=== PATIENT | female | born 1950 | race Caucasian/White ===

== ENCOUNTER 2016-06-22 17:52 | Inpatient (IN) | payer MEDICARE, MEDICAID ==
[~2016-06-22] VITALS: Ht 162.6 cm; Wt 76.2 kg
[~2016-06-22 17:52] MED LIST: AC325T PO; ACYC30OI TOP; ACYC400T21 PO; ALBU0.8322 IH; ALBU17AE3 IH; ALBU8.5H2 IH; ALBU8.5H2 INH; ALBUTEROL 2.5 MG IH; ALPR1T PO; ALPR1TAB7 PO; ALPR1TAB72 PO; AMLO10TA82 PO; AZIT500T2 PO; Azithromycin PO; BENZ100C18 PO; CALC10009 PO; CEFD300C PO; CETI10CA PO; CODE118S2 PO; CPH250CIP PO; DIPH25TA82 PO; FLC150T PO; FLUT1DIS26 IH; HYDR-3720 PO; HYDR-3816 PO; HYDR118S10 PO; HYDR12.56 PO; IBUP-30 PO; LOSA100T7 PO; LOSA1TAB23 PO; LOSA25TA5 PO; LRT10T PO; NYST1000 PO; OXYC-12 PO; POTA10TA36 PO; POTASSIUM GLUCONATE PO; PRD10T PO; PRD20T PO; PRED10TA PO; PROP40TA5 PO; RANI300T4 PO; RT-COMBINH IH; SERT50TA9 PO; TELM80TA3 PO; TIOT18CA IH; TIOT18CA2 IH; ZLP10T PO
[2016-06-22] MEDS ORDERED: DEXAMETHASONE 4 MG/ML SDV (DECADRON) IH ONE (18:30)
[2016-06-22] MEDS ORDERED: methylPREDNISolone 125 MG (Solu-MEDROL) VIAL IVP ONE (18:30)
[2016-06-22] MEDS ORDERED: RT-ALBUTEROL/IPRATROPIUM 3 ML (DUONEB) VIAL INH ONE ×2 (18:30→20:00)
[2016-06-22 18:43] LABS: BASOPHILS % (AUTO) 0 % (0-10); EOSINOPHILS % (AUTO) 0 % (0-10); LYMPHOCYTES % (AUTO) 18 % (12-44); MEAN CORPUSCULAR HEMOGLOBIN 27 PG (25-34); MEAN CORPUSCULAR HGB CONC 32 G/DL (32-36); MEAN CORPUSCULAR VOLUME 85 FL (80-99); MEAN PLATELET VOLUME 10.3 FL (7.4-10.4); MONOCYTES # (AUTO) 0.5 X 10^3 (0.0-1.0); MONOCYTES % (AUTO) 9 % (0-12); NEUTROPHILS # (AUTO) 4.1 X 10^3 (1.8-7.8); NEUTROPHILS % (AUTO) 73 % (42-75); PLATELET COUNT 184 10^3/uL (130-400); RED BLOOD COUNT 4.39 10^6/uL (4.35-5.85); RED CELL DISTRIBUTION WIDTH 13.9 % (10.0-14.5); WHITE BLOOD COUNT 5.5 10^3/uL (4.3-11.0)
[2016-06-22 19:01] LABS: INR 0.9 (0.8-1.4); PROTHROMBIN TIME PATIENT 12.1 SEC (12.2-14.7)
[2016-06-22 19:09] LABS: ALBUMIN 3.8 G/DL (3.2-4.5); BILIRUBIN,TOTAL 0.3 MG/DL (0.1-1.0); CALCIUM 8.1 MG/DL (8.5-10.1); CREATININE SERUM 1.48 MG/DL (0.60-1.30); TOTAL PROTEIN 6.6 G/DL (6.4-8.2)
[2016-06-22 19:10] LABS: ABG BASE EXCESS 5.8 MMOL/L (-2.5-2.5); ABG HCO3 33 MMOL/L (23-27); ABG OXYGEN SATURATION 94 % (94-100); ABG PCO2 62 MMHG (35-45); ABG PH 7.35 (7.37-7.43); ABG PO2 72 MMHG (79-93); ABG TCO2 34.3 MMOL/L (21.0-31.0)
[2016-06-22 19:10] LABS: POTASSIUM 2.5 MMOL/L (3.6-5.0)
[2016-06-22 19:11] LABS: PATIENT TEMP 101.2
--- NOTE | 2016-06-22 19:27 | Diagnostic Imaging Report ---
INDICATION: Cough, shortness of air. COMPARISON: 08/07/2014. FINDINGS: Flattening of the diaphragms and mild symmetrical air trapping are unchanged findings. Some mild prominence of the interstitial markings in the lung bases is a stable and chronic finding. No acute infiltrate, failure, effusion, or pneumothorax. IMPRESSION: Stable chronic finding. Dictated by: Dictated on workstation # [id number]
[2016-06-22] MEDS ORDERED: cefTRIAXone INJECTION 1,000 MG in NORMAL SALINE (BAXTER MINI) 50 ML IV ONE (20:15)
[2016-06-22] MEDS ORDERED: NORMAL SALINE (BAXTER MINI) 50 ML IV ONE (20:26)
[2016-06-22] MEDS ORDERED: cefTRIAXone 1 GM (ROCEPHIN) VIAL ONE (20:26)
[2016-06-22] MEDS ORDERED: KCL 10 MEQ TAB (MICRO K) PO ONE ×2 (20:29→20:45)
[2016-06-22] MEDS ORDERED: KCL 20 MEQ TAB (K-DUR) PO ONE (20:30)
[2016-06-22 20:57] LABS: ABG BASE EXCESS 3.9 MMOL/L (-2.5-2.5); ABG HCO3 31 MMOL/L (23-27); ABG OXYGEN SATURATION 95 % (94-100); ABG PCO2 60 MMHG (35-45); ABG PO2 76 MMHG (79-93); ABG TCO2 32.9 MMOL/L (21.0-31.0)
[2016-06-22 21:00] LABS: ABG PH 7.33 (7.37-7.43)
[2016-06-22 22:08] VITALS: BP 127/94
[2016-06-22 22:15] VITALS: BP 117/54
[2016-06-22] MEDS ORDERED: ASPI-9 PO (22:19)
[2016-06-22] MEDS ORDERED: DIPH25CA79 PO (22:20)
[2016-06-22] MEDS ORDERED: AZITHROMYCIN 500 MG/NS 250 ML IVPB (1 X DOSE) IV NR ×2 (22:24)
[2016-06-22 22:30] VITALS: BP 109/55
[2016-06-22] MEDS ORDERED: ACYCLOVIR 400 MG TABLET (ZOVIRAX) PO PRN (22:30)
[2016-06-22] MEDS ORDERED: RT-ALBUTEROL SULF 2.5 MG/3 ML PRE-MIX VIAL IH PRN (22:30)
[2016-06-22 22:45] VITALS: BP 110/53
[2016-06-22 23:00] VITALS: BP 105/56
[2016-06-22 23:30] VITALS: BP 109/57
[2016-06-22] MEDS ORDERED: RT-ALBUTEROL/IPRATROPIUM 3 ML (DUONEB) VIAL INH PRN (23:45)
[2016-06-23] VITALS (19 sets, daily range): BP systolic 78–127; BP diastolic 29–81
[2016-06-23] MEDS ORDERED: ALPRAZolam 1 MG (XANAX) TAB PO SCH (00:45)
[2016-06-23] MEDS ORDERED: HYDROcodone/APAP 7.5 MG/325 MG (LORTAB, LORCET PLUS) TABLET PO ONE (00:45)
[2016-06-23] MEDS: methylPREDNISolone 125 MG (Solu-MEDROL) VIAL IVP SCH ×4 (00:53→19:06)
[2016-06-23 04:25] LABS: BASOPHILS % (AUTO) 0 % (0-10); EOSINOPHILS % (AUTO) 0 % (0-10); LYMPHOCYTES # (AUTO) 0.3 X 10^3 (1.0-4.0); LYMPHOCYTES % (AUTO) 7 % (12-44); MEAN CORPUSCULAR HEMOGLOBIN 27 PG (25-34); MEAN CORPUSCULAR HGB CONC 32 G/DL (32-36); MEAN CORPUSCULAR VOLUME 85 FL (80-99); MEAN PLATELET VOLUME 10.9 FL (7.4-10.4); MONOCYTES % (AUTO) 1 % (0-12); NEUTROPHILS # (AUTO) 3.4 X 10^3 (1.8-7.8); NEUTROPHILS % (AUTO) 92 % (42-75); PLATELET COUNT 183 10^3/uL (130-400); RED BLOOD COUNT 4.22 10^6/uL (4.35-5.85); RED CELL DISTRIBUTION WIDTH 13.8 % (10.0-14.5); WHITE BLOOD COUNT 3.6 10^3/uL (4.3-11.0)
--- NOTE | 2016-06-23 04:34 | ED Respiratory ---
General Chief Complaint: Respiratory Problems Stated Complaint: COPD EXACERBATION WITH HYPOXIA Nursing Triage Note: ARRIVED VIA AMBULANCE FROM [facility] WITH SOA. RECIEVED Enoch DENNIS AT [facility]. STATES SHE HAS BEEN COUGHING AND SOA FOR SEVERAL DAYS. PT STATES SHE WEARS OXYGEN ON A DAILY BASIS AT 2-4L NC. PT ARRIVED AT 2L NC WITH A PULSE OX OF 78%. Source: patient History of Present Illness Time seen by provider: 18:25 Initial Comments PT ARRIVES VIA EMS FROM [facility] PT C/O SHORTNESS OF BREATH AND NON PRODUCTIVE COUGH FOR 4 DAYS PT HAS COPD AND WEARS O2 AT 3-4 L/NC CONTINUOUSLY O2 SATS WERE IN 70'S AT [facility], AND WAS 79% ON 2L/NC ON ARRIVAL TO ER PT HAS TEMP OF 101 ON ARRIVAL HERE, WITH PULSE IN 120'S NO CHEST PAIN NO SWELLING IN LEGS/FEET OR PAIN IN CALVES Allergies and Home Medications Allergies Coded Allergies: levofloxacin (Verified Allergy, Severe, SEVERE SWELLING OF KNEES, 08/07/14) ibuprofen (Verified Allergy, Unknown, 06/22/16) zolpidem (Verified Allergy, Unknown, 06/22/16) Uncoded Allergies: HONEY BEES (Allergy, Severe, ANAPHYLAXIS, 08/07/14) Home Medications Acyclovir 400 Mg Tablet 400 MG PO TID PRN PRN COLD SORES (Reported) Albuterol Sulfate 2.5 Mg/3 Ml Solution 2.5 MG IH QID PRN PRN SHORTNESS OF BREATH (Reported) Albuterol Sulfate 8.5 Gm Aer.w.adap 2 PUFF INH Q6H PRN PRN SHORTNESS OF BREATH ( Reported) Alprazolam 1 Mg Tablet 1 MG PO BID (Reported) Aspirin/Calcium Carbonate/Mag 325 Mg Tablet 325 MG PO DAILY (Reported) Diphenhydramine HCl 25 Mg Capsule 50 MG PO DAILY (Reported) Fluticasone/Salmeterol 1 Disk Inhp 1 PUFF IH BID (Reported) LAST FILLED 08-20-14 Hydrocodone Bit/Acetaminophen 1 Tab Tablet 1 TAB PO TID (Reported) Potassium Chloride 10 Meq Tab.prt.sr 30Days 20 MEQ PO DAILY Prescribed by: SHAHLA LOPEZ on 11/26/14 1423 Ranitidine Hcl 300 Mg Tablet 300 MG PO HS (Reported) Tiotropium Fults 1 Inh Aerp 1 INH IH DAILY (Reported) Constitutional: see HPI Respiratory: see HPI cough short of breath Cardiovascular: no symptoms reported Gastrointestinal: no symptoms reported Musculoskeletal: no symptoms reported Skin: no symptoms reported Psychiatric/Neurological: No Symptoms Reported Hematologic/Lymphatic: No Symptoms Reported Immunological/Allergic: no symptoms reported Past Wvpydrb-Efeqof-Tpqyym Hx Patient Social History Alcohol Use: Denies Use Recreational Drug Use: No Smoking Status: Never a Smoker Recent Foreign Travel: No Contact w/Someone Who Travel: No Recent Infectious Disease Expo: No Recent Hopitalizations: No Physical Abuse Screen: No Sexual Abuse: No Immunizations Up To Date Tetanus Booster (TDap): More than 5yrs PED Vaccines UTD: No Date of Pneumonia Vaccine: Mar 25, 2011 Date of Influenza Vaccine: Apr 03, 2016 Seasonal Allergies Seasonal Allergies: Yes Surgeries HX Surgeries: Yes (SHOULDER, KNEE SURGERIES, CATARACT) Respiratory Hx Respiratory Disorders: Yes Respiratory Disorders: Pneumonia, COPD Cardiovascular Hx Cardiac Disorders: Yes Neurological Hx Neurological Disorders: No Reproductive System : No Hx Reproductive Disorders: No Sexually Transmitted Disease: No HIV/AIDS: No Female Reproductive Disorders: Denies Genitourinary Hx Genitourinary Disorders: Yes Genitourinary Disorders: UTI-Chronic Gastrointestinal Hx Gastrointestinal Disorders: Yes Gastrointestinal Disorders: Gastroesophageal Reflux Musculoskeletal Hx Musculoskeletal Disorders: No Musculoskeletal Disorders: Arthritis Endocrine Hx Endocrine Disorders: No HEENT HX ENT Disorders: Yes (stoke effecting rt eye ) HEENT Disorders: Cataract Loss of Vision: Right Hearing Impairment: Denies Cancer Hx Cancer: Yes ( hysterectomy, ) Cancer: Cervical Psychosocial Hx Psychiatric Problems: Yes Behavioral Health Disorders: Anxiety, Depression Integumentary HX Skin/Integumentary Disorder: No Blood Transfusions Hx Blood Disorders: No Adverse Reaction to a Blood Tr: No Family Medical History Family Medial History: Arthritis 19 FATHER Asthma DAUGHTER Cancer 19 MOTHER G8 SISTER Cardiovascular disease 19 FATHER Colon cancer 19 MOTHER Coronary thrombosis DAUGHTER Diabetes mellitus DAUGHTER Drug abuse DAUGHTER Headache disorder DAUGHTER Hypercholesterolemia DAUGHTER Hypertension DAUGHTER Myocardial infarction 19 MOTHER Psychosocial problem DAUGHTER Respiratory disorder DAUGHTER Stroke Tuberculosis No Family History of: AIDS Abdominal aortic aneurysm [place]'s disease Alcoholism Alzheimer's disease Aphasia Cancer of mouth Cataracts Completed stroke Congenital disease Congenital heart disease Congenital heart disease Cystic fibrosis Deafness or hearing loss Dementia Dysphasia Fibrocystic disease of breast Gastroenteritis Glaucoma Infertility Kidney disease Neoplasm Not obtainable due to adoption Osteoporosis Parkinson's disease Prostate cancer Seizure disorder Severe allergy Thyroid disease Visual disorder Physical Exam Vital Signs Vital Sign - Last 12Hours 06/22/16 06/22/16 06/22/16 17:52 19:07 19:55 Temp 101.2 Pulse 121 Resp 20 B/P 105/67 Pulse Ox 100 O2 Delivery Nasal Cannula O2 Flow Rate 5 FiO2 100 Capillary Refill : Less Than 3 Seconds General Appearance: moderate distress HEENT: PERRL/EOMI Neck: normal inspection Respiratory: respiratory distress decreased breath sounds accessory muscle use rales (DIFFUSE BILATERAL) rhonchi Cardiovascular: regular rate, rhythm Gastrointestinal: non tender soft Extremities: normal inspection no pedal edema 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 no motor/sensory deficits normal mood/affect oriented x 3 Skin: normal color warm/dry Progress/Results/Core Measures Results/Orders Lab Results Laboratory Tests Test 06/22/16 18:27 06/22/16 18:30 Range/Units Lv Test NA Arterial Blood Base Excess 5.8 H -2.5-2.5 MMOL/L Arterial Blood HCO3 33 H 23-27 MMOL/L Arterial Blood Oxygen Saturation 94 94-100 % Arterial Blood Partial Pressure CO2 62 H 35-45 MMHG Arterial Blood Partial Pressure O2 72 L 79-93 MMHG Arterial Blood Total CO2 34.3 H 21.0-31.0 MMOL/L Arterial Blood pH 7.35 L 7.37-7.43 Blood Gas Inspired Oxygen 5L Blood Gas Patient Temperature 101.2 Blood Gas Puncture Site RT BRACH Blood Gas Ventilator Setting NO Activated Partial Thromboplast Time 34 24-35 SEC Alanine Aminotransferase (ALT/SGPT) 23 0-55 U/L Albumin 3.8 3.2-4.5 G/DL Alkaline Phosphatase 99 40-136 U/L Anion Gap 12 5-14 MMOL/L Aspartate Amino Transf (AST/SGOT) 26 5-34 U/L B-Type Natriuretic Peptide < 10.0 <100.0 PG/ML BUN/Creatinine Ratio 7 Basophils # (Auto) 0.0 0.0-0.1 10^3/uL Basophils (%) (Auto) 0 0-10 % Blood Urea Nitrogen 11 7-18 MG/DL Calcium Level 8.1 L 8.5-10.1 MG/DL Carbon Dioxide Level 31 21-32 MMOL/L Chloride Level 91 L 98-107 MMOL/L Creatinine 1.48 H 0.60-1.30 MG/DL Eosinophils # (Auto) 0.0 0.0-0.3 10^3/uL Eosinophils (%) (Auto) 0 0-10 % Estimat Glomerular Filtration Rate 35 Glucose Level 122 H 70-105 MG/DL Hematocrit 37 35-52 % Hemoglobin 11.8 11.5-16.0 G/DL INR Comment 0.9 0.8-1.4 Lactic Acid Level 1.6 0.5-2.0 MMOL/L Lymphocytes # (Auto) 1.0 1.0-4.0 X 10^3 Lymphocytes (%) (Auto) 18 12-44 % Mean Corpuscular Hemoglobin 27 25-34 PG Mean Corpuscular Hemoglobin Concent 32 32-36 G/DL Mean Corpuscular Volume 85 80-99 FL Mean Platelet Volume 10.3 7.4-10.4 FL Monocytes # (Auto) 0.5 0.0-1.0 X 10^3 Monocytes (%) (Auto) 9 0-12 % Neutrophils # (Auto) 4.1 1.8-7.8 X 10^3 Neutrophils (%) (Auto) 73 42-75 % Platelet Count 184 130-400 10^3/uL Potassium Level 2.5 *L 3.6-5.0 MMOL/L Prothrombin Time 12.1 L 12.2-14.7 SEC Red Blood Count 4.39 4.35-5.85 10^6/uL Red Cell Distribution Width 13.9 10.0-14.5 % Sodium Level 134 L 135-145 MMOL/L Total Bilirubin 0.3 0.1-1.0 MG/DL Total Protein 6.6 6.4-8.2 G/DL White Blood Count 5.5 4.3-11.0 10^3/uL Micro Results Microbiology 06/22/16 Influenza Types A,B Antigen (ADRIAN) - Final, Complete My Orders Orders-MEGGAN CASTRO DO Saline Lock/Iv-Start (06/22/16 18:27) Ekg Tracing (06/22/16 18:27) O2 (06/22/16 18:27) Monitor-Rhythm Ecg Trace Only (06/22/16 18:27) Arterial Blood Gas (06/22/16 18:27) BNP (06/22/16 18:27) Cbc With Automated Diff (06/22/16 18:27) Comprehensive Metabolic Panel (06/22/16 18:27) Lactic Acid Analyzer (06/22/16 18:27) Protime With Inr (06/22/16 18:27) Partial Thromboplastin Time (06/22/16 18:27) Blood Culture (06/22/16 18:27) Influenza A And B Antigens (06/22/16 18:27) Chest 1 View, Ap/Pa Only (06/22/16 18:27) Albuterol/Ipra Inhalation Soln (Duoneb I (06/22/16 18:30) Dexamethasone Injection (Decadron Inject (06/22/16 18:30) Rt Request For Service (06/22/16 18:27) Methylprednisolone Sod Succ (Solu-Medrol (06/22/16 18:30) Albuterol/Ipra Inhalation Soln (Duoneb I (06/22/16 20:00) Medications Given in ED Current Medications Medications Dose Ordered Sig/Yannick Route Start Time Stop Time Status Last Admin Dose Admin Albuterol/ Ipratropium 3 ml ONCE ONCE INH 06/22/16 18:30 06/22/16 23:42 DC 06/22/16 19:07 3 ML Dexamethasone Sodium Phosphate 20 mg ONCE ONCE IH 06/22/16 18:30 06/22/16 18:31 DC 06/22/16 19:07 20 MG Methylprednisolone Sodium Succinate 125 mg ONCE ONCE IVP 06/22/16 18:30 06/22/16 18:31 DC 06/22/16 18:48 125 MG Vital Signs/I&O Vital Sign - Last 12Hours 06/22/16 06/22/16 06/22/16 06/22/16 17:52 17:52 19:07 19:55 Temp 101.2 Pulse 121 Resp 20 B/P 105/67 Pulse Ox 100 95 O2 Delivery Nasal Cannula Nasal Cannula Vapotherm O2 Flow Rate 5 5 14 FiO2 100 Blood Pressure Mean: 80 Progress Note : Progress Note O2 SATS IN 90'S ON HIG FLOW OXYGEN PT NO LONGER DYSPNEIC LUNG SOUNDS IMPROVED AFTER NEB TREATMENTS ECG Initial ECG Impression Time: 19:46 Initial ECG Rate: 1-0 Initial ECG Rhythm: S.Tach Initial ECG Impression: Nonspecific Changes Diagnostic Imaging Comments CXR--NO ACUTE PROCESS, PER RADIOLOGIST REPORT @ Reviewed: Reviewed by Me Departure Communication Progress Notes 1953--SPOKE WITH DR. GRANT, ACCEPTS PT FOR ADMIT. Impression Impression: Primary Impression: COPD EXACERBATION WITH HYPOXIA Additional Impression: Chronic respiratory failure Disposition: ADMITTED INPATIENT Condition: Improved Decision to Admit Reason: Admit from ER (General) Decision to Admit/Date: Jun 22, 2016 Time/Decision to Admit Time: 19:55 Departure-Patient Inst. Referrals: ANDREA CHU MD (PCP) Primary Care Physician MEGGAN CASTRO DO Jun 23, 2016 04:34
[2016-06-23 05:01] LABS: ALBUMIN 3.8 G/DL (3.2-4.5); BILIRUBIN,TOTAL 0.2 MG/DL (0.1-1.0); CREATININE SERUM 1.26 MG/DL (0.60-1.30); MAGNESIUM 2.6 MG/DL (1.8-2.4); PHOSPHORUS 3.3 MG/DL (2.3-4.7); POTASSIUM 4.3 MMOL/L (3.6-5.0); TOTAL PROTEIN 7.1 G/DL (6.4-8.2)
[2016-06-23] MEDS ORDERED: MAGNESIUM 1 GM/100 ML IVPB 100 ML IV SCH (06:00)
[2016-06-23] MEDS ORDERED: KCL 20 MEQ TAB (K-DUR) PO SCH (06:00)
[2016-06-23] MEDS ORDERED: POTASSIUM CL 10MEQ/50ML IVPB 50 ML IV SCH (06:00)
[2016-06-23] MEDS: RT-ALBUTEROL/IPRATROPIUM 3 ML (DUONEB) VIAL INH SCH ×4 (06:52→20:21)
[2016-06-23] MEDS: RT-ADVAIR HFA 115/21 MCG PER PUFF IH SCH ×2 (06:52→20:21)
--- NOTE | 2016-06-23 06:56 | Diagnostic Imaging Report ---
INDICATION: COPD exacerbation. Hypoxia. COMPARISON: 06/22/2016 FINDINGS: Single frontal radiographic view of the chest was obtained and demonstrates normal cardiac silhouette and pulmonary vasculature. Lungs are clear and show no focal consolidation, large effusion, nor pneumothorax. Bony structures show no gross acute abnormalities. IMPRESSION: 1. Stable exam of the chest showing no acute cardiopulmonary process. Dictated by: Dictated on workstation # [id number]
[2016-06-23] MEDS: TIOTROPIUM BROMIDE (SPIRIVA) 5'S INHALER IH SCH (07:07)
[2016-06-23] MEDS: KCL 20 MEQ TAB (K-DUR) PO SCH (08:21)
[2016-06-23] MEDS: diphenhydrAMINE 25 MG TAB (BENADRYL) PO SCH (08:21)
[2016-06-23] MEDS: HYDROcodone/APAP 7.5 MG/325 MG (LORTAB, LORCET PLUS) TABLET PO SCH ×3 (08:22→20:05)
[2016-06-23] MEDS: ASPIRIN E.C. 325 MG (ECOTRIN) TABLET PO SCH (08:22)
[2016-06-23] MEDS: AZITHROMYCIN 250 MG TAB (ZITHROMAX) PO SCH (08:22)
[2016-06-23] MEDS: ALPRAZolam 1 MG (XANAX) TAB PO SCH ×2 (08:22→20:05)
[2016-06-23] MEDS ORDERED: SALMETEROL IH SCH (09:00)
[2016-06-23] MEDS ORDERED: FLUTICASONE IH SCH (09:00)
[2016-06-23] MEDS ORDERED: [UNRECOGNIZED DRUG - OTHER] IH SCH (09:00)
[2016-06-23] MEDS ORDERED: POTASSIUM CHLORIDE 20 MEQ PO SCH (09:00)
[2016-06-23] MEDS ORDERED: NON-FORMULARY MEDICATION 1 EA EA (Diphenhydramine HCl (Benadryl) 50 MG) PO SCH (09:00)
[2016-06-23] MEDS ORDERED: RT-ALBUINH IH (09:49)
[2016-06-23] MEDS ORDERED: FLUT1DIS26 IH (09:49)
[2016-06-23] MEDS ORDERED: ALPR1TAB7 PO (09:49)
[2016-06-23] MEDS ORDERED: HYDR-3816 PO (09:49)
[2016-06-23] MEDS ORDERED: LOSA1TAB70 PO (09:49)
[2016-06-23] MEDS ORDERED: SERT50TA9 PO (09:49)
[2016-06-23] MEDS ORDERED: ASPI-808 PO (09:49)
[2016-06-23] MEDS ORDERED: RANI300T4 PO (09:49)
[2016-06-23] MEDS ORDERED: POTA10TA10 PO (09:52)
[2016-06-23] MEDS ORDERED: ACYC200C PO (09:57)
--- NOTE | 2016-06-23 11:44 | History & Physicial (CHS) ---
HPI History of Present Illness: 66YO WOMAN presented to [facility] with her family after they noticed she appeared hshort of breath. In clinic, patient had O2 sat of 78% on her usual 2.5L flow of oxygen. Today, patient states that she "feels the same as usual" and that she did not notice she was gettign sick. Denies fever, cough, fatigue. Patient states she does not like going to the doctor and so avoids it. Source: patient Exam Limitations: no limitations Date seen by provider: Jun 23, 2016 Attending Physician Lila Hammer MD PCP Andrea Chu MD Consult Date of Admission Jun 22, 2016 at 19:55 Home Medications Home Medications Reviewed patient Home Medication Reconciliation Form Allergies Coded Allergies: levofloxacin (Verified Allergy, Severe, SEVERE SWELLING OF KNEES, 08/07/14) ibuprofen (Verified Allergy, Unknown, 06/22/16) zolpidem (Verified Allergy, Unknown, 06/22/16) Uncoded Allergies: HONEY BEES (Allergy, Severe, ANAPHYLAXIS, 08/07/14) YJR-Vkegke-Mvblez Hx Patient Social History Alcohol Use: Denies Use Recreational Drug Use: No Smoking Status: Never a Smoker Recent Foreign Travel: No Contact w/other who traveled: No Recent Hopitalizations: No Recent Infectious Disease Expo: No Physical Abuse Screen: No Sexual Abuse: No Immunizations Up To Date Tetanus Booster (TDap): More than 5yrs Date of Pneumonia Vaccine: Mar 25, 2011 Date of Influenza Vaccine: Apr 03, 2016 Past Medical History Past medical history 1. COPD 2. Pulmonary embolus in the distant past related to OCP 3. Hypertension 4. Chronic anxiety and depression 5. Multiple admissions with pneumonia H-Flu -15, Strep Pneumonia 12- Past surgical history 1. Hysterectomy 2. Open right shoulder surgery 3. Appendectomy -Kido 4. Knee arthroscopy Family Medical History Family History: Arthritis 19 FATHER Asthma DAUGHTER Cancer 19 MOTHER G8 SISTER Cardiovascular disease 19 FATHER Colon cancer 19 MOTHER Coronary thrombosis DAUGHTER Diabetes mellitus DAUGHTER Drug abuse DAUGHTER Headache disorder DAUGHTER Hypercholesterolemia DAUGHTER Hypertension DAUGHTER Myocardial infarction 19 MOTHER Psychosocial problem DAUGHTER Respiratory disorder DAUGHTER Stroke Tuberculosis No Family History of: AIDS Abdominal aortic aneurysm [place]'s disease Alcoholism Alzheimer's disease Aphasia Cancer of mouth Cataracts Completed stroke Congenital disease Congenital heart disease Congenital heart disease Cystic fibrosis Deafness or hearing loss Dementia Dysphasia Fibrocystic disease of breast Gastroenteritis Glaucoma Infertility Kidney disease Neoplasm Not obtainable due to adoption Osteoporosis Parkinson's disease Prostate cancer Seizure disorder Severe allergy Thyroid disease Visual disorder Review of Systems (CHC) Constitutional: no symptoms reported All Other Systems Reviewed Negative Unless Noted: Yes (Negative excepted noted.) Reviewed Test Results Reviewed Test Results Lab Laboratory Tests Test 06/22/16 18:27 06/22/16 18:30 06/22/16 20:53 06/23/16 03:43 Range/Units Lv Test NA NA Arterial Blood Base Excess 5.8 H 3.9 H -2.5-2.5 MMOL/L Arterial Blood HCO3 33 H 31 H 23-27 MMOL/L Arterial Blood Oxygen Saturation 94 95 94-100 % Arterial Blood Partial Pressure CO2 62 H 60 H 35-45 MMHG Arterial Blood Partial Pressure O2 72 L 76 L 79-93 MMHG Arterial Blood Total CO2 34.3 H 32.9 H 21.0-31.0 MMOL/L Arterial Blood pH 7.35 L 7.33 *L 7.37-7.43 Blood Gas Inspired Oxygen 5L 14 L Blood Gas Patient Temperature 101.2 99.0 Blood Gas Puncture Site RT BRACH LT BRACH Blood Gas Ventilator Setting NO NO Activated Partial Thromboplast Time 34 24-35 SEC Alanine Aminotransferase (ALT/SGPT) 23 24 0-55 U/L Albumin 3.8 3.8 3.2-4.5 G/DL Alkaline Phosphatase 99 105 40-136 U/L Anion Gap 12 18 H 5-14 MMOL/L Aspartate Amino Transf (AST/SGOT) 26 33 5-34 U/L B-Type Natriuretic Peptide < 10.0 <100.0 PG/ML BUN/Creatinine Ratio 7 10 Basophils # (Auto) 0.0 0.0 0.0-0.1 10^3/uL Basophils (%) (Auto) 0 0 0-10 % Blood Urea Nitrogen 11 13 7-18 MG/DL Calcium Level 8.1 L 8.0 L 8.5-10.1 MG/DL Carbon Dioxide Level 31 20 L 21-32 MMOL/L Chloride Level 91 L 94 L 98-107 MMOL/L Creatinine 1.48 H 1.26 0.60-1.30 MG/DL Eosinophils # (Auto) 0.0 0.0 0.0-0.3 10^3/uL Eosinophils (%) (Auto) 0 0 0-10 % Estimat Glomerular Filtration Rate 35 43 Glucose Level 122 H 211 H 70-105 MG/DL Hematocrit 37 36 35-52 % Hemoglobin 11.8 11.4 L 11.5-16.0 G/DL INR Comment 0.9 0.8-1.4 Lactic Acid Level 1.6 0.5-2.0 MMOL/L Lymphocytes # (Auto) 1.0 0.3 L 1.0-4.0 X 10^3 Lymphocytes (%) (Auto) 18 7 L 12-44 % Mean Corpuscular Hemoglobin 27 27 25-34 PG Mean Corpuscular Hemoglobin Concent 32 32 32-36 G/DL Mean Corpuscular Volume 85 85 80-99 FL Mean Platelet Volume 10.3 10.9 H 7.4-10.4 FL Monocytes # (Auto) 0.5 0.0 0.0-1.0 X 10^3 Monocytes (%) (Auto) 9 1 0-12 % Neutrophils # (Auto) 4.1 3.4 1.8-7.8 X 10^3 Neutrophils (%) (Auto) 73 92 H 42-75 % Platelet Count 184 183 130-400 10^3/uL Potassium Level 2.5 *L 4.3 3.6-5.0 MMOL/L Prothrombin Time 12.1 L 12.2-14.7 SEC Red Blood Count 4.39 4.22 L 4.35-5.85 10^6/uL Red Cell Distribution Width 13.9 13.8 10.0-14.5 % Sodium Level 134 L 132 L 135-145 MMOL/L Total Bilirubin 0.3 0.2 0.1-1.0 MG/DL Total Protein 6.6 7.1 6.4-8.2 G/DL White Blood Count 5.5 3.6 L 4.3-11.0 10^3/uL Magnesium Level 2.6 H 1.8-2.4 MG/DL Phosphorus Level 3.3 2.3-4.7 MG/DL Test 06/23/16 14:31 Range/Units Lv Test YES-POS Arterial Blood Base Excess 3.0 H -2.5-2.5 MMOL/L Arterial Blood HCO3 29 H 23-27 MMOL/L Arterial Blood Oxygen Saturation 97 94-100 % Arterial Blood Partial Pressure CO2 45 35-45 MMHG Arterial Blood Partial Pressure O2 87 79-93 MMHG Arterial Blood Total CO2 30.1 21.0-31.0 MMOL/L Arterial Blood pH 7.41 7.37-7.43 Blood Gas Inspired Oxygen 70% Blood Gas Patient Temperature 95.7 Blood Gas Puncture Site RT RAD Blood Gas Ventilator Setting NO Physical Exam-(CHC) Physical Exam Vital Signs VS - Last 72 Hours, by Label 06/22/16 06/22/16 06/22/16 06/22/16 17:52 17:52 19:07 19:55 Temp 101.2 Pulse 121 Resp 20 B/P 105/67 Pulse Ox 100 95 O2 Delivery Nasal Cannula Nasal Cannula Vapotherm O2 Flow Rate 5 5 14 FiO2 100 06/22/16 06/22/16 06/22/16 06/22/16 20:29 22:03 22:08 22:15 Temp 100.0 98.4 Pulse 121 119 109 Resp 20 36 17 B/P 127/94 117/54 Pulse Ox 95 98 91 94 O2 Delivery High Flow NC High Flow N/C High Flow NC High Flow NC O2 Flow Rate 14 14.00 100.00 100.00 14.00 14.00 FiO2 100 06/22/16 06/22/16 06/22/16 06/22/16 22:22 22:30 22:45 23:00 Pulse 105 105 100 99 Resp 28 27 27 B/P 109/55 110/53 105/56 Pulse Ox 97 100 98 O2 Delivery High Flow NC High Flow NC High Flow NC O2 Flow Rate 100.00 100.00 100.00 14.00 14.00 14.00 06/22/16 06/22/16 06/23/16 06/23/16 23:30 23:35 00:00 00:00 Temp 98.1 Pulse 102 111 Resp 30 30 B/P 109/57 79/29 Pulse Ox 98 94 98 96 O2 Delivery High Flow NC High Flow NC O2 Flow Rate 100.00 14.00 100.00 14.00 14.00 FiO2 100 06/23/16 06/23/16 06/23/16 06/23/16 00:14 00:15 00:30 01:00 Pulse 99 101 95 Resp 23 26 27 B/P 112/68 112/61 127/81 Pulse Ox 98 98 99 98 O2 Delivery High Flow N/C High Flow NC High Flow NC High Flow NC O2 Flow Rate 14.00 100.00 100.00 100.00 14.00 14.00 14.00 FiO2 100 06/23/16 06/23/16 06/23/16 06/23/16 01:00 02:00 02:34 03:00 Pulse 96 92 90 Resp 26 24 B/P 122/62 121/64 Pulse Ox 97 96 98 O2 Delivery High Flow NC High Flow N/C High Flow NC O2 Flow Rate 100.00 14.00 100.00 14.00 14.00 06/23/16 06/23/16 06/23/16 06/23/16 04:00 04:00 05:00 06:00 Pulse 92 89 84 Resp 25 B/P 121/62 100/55 103/54 Pulse Ox 98 98 98 100 O2 Delivery High Flow NC High Flow NC High Flow NC O2 Flow Rate 100.00 14.00 100.00 100.00 14.00 14.00 14.00 FiO2 100 06/23/16 06/23/16 06/23/16 06/23/16 06:53 07:00 07:00 08:00 Pulse 86 89 B/P 96/52 Pulse Ox 100 100 98 O2 Delivery High Flow N/C High Flow NC O2 Flow Rate 14.00 100.00 14.00 14.00 FiO2 80 80 06/23/16 06/23/16 06/23/16 06/23/16 08:00 08:00 09:00 10:00 Temp 96.6 Pulse 87 83 96 B/P 112/62 95/54 78/59 Pulse Ox 92 98 92 O2 Delivery High Flow NC High Flow NC High Flow NC O2 Flow Rate 100.00 100.00 100.00 14.00 14.00 14.00 06/23/16 06/23/16 06/23/16 06/23/16 10:59 11:00 11:33 11:33 Temp 97.1 Pulse 84 B/P 113/51 Pulse Ox 96 98 O2 Delivery High Flow N/C High Flow NC O2 Flow Rate 14.00 100.00 14.00 14.00 FiO2 75 80 06/23/06/23/16 16 06/23/16 12:00 13:00 13:00 14:00 Pulse 90 80 81 B/P 100/53 111/63 Pulse Ox 96 98 O2 Delivery High Flow NC High Flow NC High Flow NC O2 Flow Rate 100.00 100.00 100.00 14.00 14.00 14.00 06/23/16 06/23/16 06/23/16 06/23/16 15:00 15:11 15:12 15:16 B/P Pulse Ox 98 93 O2 Delivery High Flow NC High Flow N/C High Flow N/C O2 Flow Rate 100.00 7.00 14.00 9.00 14.00 FiO2 60 80 63 06/23/16 06/23/16 06/23/16 06/23/16 16:00 16:07 16:45 19:55 Temp 96.2 97.8 98.2 Pulse 99 107 90 Resp 30 24 23 B/P 114/58 123/56 97/58 Pulse Ox 94 92 96 O2 Delivery High Flow NC High Flow NC High Flow NC O2 Flow Rate 100.00 100.00 100.00 14.00 14.00 14.00 06/23/16 06/23/16 20:21 20:26 Pulse Ox 91 O2 Delivery High Flow N/C High Flow N/C O2 Flow Rate 9.00 9.00 FiO2 63 63 Capillary Refill : Less Than 3 Seconds General Appearance: WD/WN no apparent distress HEENT: PERRL/EOMI normal ENT inspection pharynx normal Neck: non-tender full range of motion supple normal inspection Respiratory: lungs clear decreased breath sounds accessory muscle use other ( short of breath when speaking) Cardiovascular: regular rate, rhythm no edema no gallop no JVD no murmur Gastrointestinal: normal bowel sounds non tender soft no organomegaly Extremities: normal range of motion non-tender normal inspection no pedal edema normal capillary refill 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 she does appear quite ill and has end stage lung disease. she is on appropriate therapies at home though it appears doses need to be adjusted given her degree of lung disease. I will keep her on azithromycin and rocephin for pneumonia protocol though she does not technically have a CAP. She might also do well with doxy but was allergic to FQ. Her ABG today is much improved so we will keep her on the HiFLow Cannula and wean down as possible. Explained to patient that she will need to be in hospital for a few days, she was quite ready to leave already this morning. HTN ADM - listed in clinic chart as PMH. BP here are somewhat low, so holding meds for now. DVT PROPH: SCDs Diagnosis/Problems: Clinical Quality Measures DVT/VTE Risk/Contraindication: Risk Factor Score Per Nursin RFS Level Per Nursing on Admit: 4+=Very High Copy Copies To 1: ANDREA CHU MD, JULIE A MD Jun 23, 2016 11:44 am
[2016-06-23 14:40] LABS: ABG HCO3 29 MMOL/L (23-27); ABG OXYGEN SATURATION 97 % (94-100); ABG PCO2 45 MMHG (35-45); ABG PH 7.41 (7.37-7.43); ABG PO2 87 MMHG (79-93); ABG TCO2 30.1 MMOL/L (21.0-31.0)
[2016-06-23 14:47] LABS: ALLENS TEST YES-POS; PATIENT TEMP 95.7
[2016-06-23] MEDS ORDERED: NORMAL SALINE (BAXTER MINI) 50 ML IV ONE (19:56)
[2016-06-23] MEDS ORDERED: cefTRIAXone 1 GM (ROCEPHIN) VIAL ONE (19:56)
[2016-06-23] MEDS: cefTRIAXone 1 GM/NS 50 ML IVPB IV SCH ×2 (20:04)
[2016-06-23] MEDS: FAMOTIDINE 20 MG (PEPCID) TABLET PO SCH (20:04)
[2016-06-24] VITALS (7 sets, daily range): BP systolic 104–136; BP diastolic 61–80
[2016-06-24] MEDS: methylPREDNISolone 125 MG (Solu-MEDROL) VIAL IVP SCH ×2 (00:34→06:14)
[2016-06-24 06:04] LABS: BASOPHILS % (AUTO) 0 % (0-10); EOSINOPHILS % (AUTO) 0 % (0-10); LYMPHOCYTES # (AUTO) 0.5 X 10^3 (1.0-4.0); LYMPHOCYTES % (AUTO) 7 % (12-44); MEAN CORPUSCULAR HEMOGLOBIN 27 PG (25-34); MEAN CORPUSCULAR HGB CONC 32 G/DL (32-36); MEAN CORPUSCULAR VOLUME 84 FL (80-99); MEAN PLATELET VOLUME 10.5 FL (7.4-10.4); MONOCYTES # (AUTO) 0.3 X 10^3 (0.0-1.0); MONOCYTES % (AUTO) 3 % (0-12); NEUTROPHILS # (AUTO) 6.9 X 10^3 (1.8-7.8); NEUTROPHILS % (AUTO) 90 % (42-75); PLATELET COUNT 205 10^3/uL (130-400); RED BLOOD COUNT 4.17 10^6/uL (4.35-5.85); RED CELL DISTRIBUTION WIDTH 13.7 % (10.0-14.5); WHITE BLOOD COUNT 7.7 10^3/uL (4.3-11.0)
[2016-06-24] MEDS: KCL 20 MEQ TAB (K-DUR) PO SCH (06:14)
[2016-06-24 06:27] LABS: CALCIUM 8.6 MG/DL (8.5-10.1); CREATININE SERUM 0.97 MG/DL (0.60-1.30); POTASSIUM 3.2 MMOL/L (3.6-5.0)
[2016-06-24] MEDS: RT-ALBUTEROL/IPRATROPIUM 3 ML (DUONEB) VIAL INH SCH ×4 (07:16→19:26)
[2016-06-24] MEDS: RT-ADVAIR HFA 115/21 MCG PER PUFF IH SCH ×2 (07:16→19:26)
[2016-06-24] MEDS ORDERED: cefTRIAXone 1 GM (ROCEPHIN) VIAL ONE ×2 (08:12→19:48)
[2016-06-24] MEDS ORDERED: NORMAL SALINE (BAXTER MINI) 50 ML IV ONE ×2 (08:13→19:48)
[2016-06-24] MEDS: ALPRAZolam 1 MG (XANAX) TAB PO SCH ×2 (08:21→20:03)
[2016-06-24] MEDS: ASPIRIN E.C. 325 MG (ECOTRIN) TABLET PO SCH (08:21)
[2016-06-24] MEDS: AZITHROMYCIN 250 MG TAB (ZITHROMAX) PO SCH (08:21)
[2016-06-24] MEDS: diphenhydrAMINE 25 MG TAB (BENADRYL) PO SCH (08:21)
[2016-06-24] MEDS: HYDROcodone/APAP 7.5 MG/325 MG (LORTAB, LORCET PLUS) TABLET PO SCH ×3 (08:21→20:02)
[2016-06-24] MEDS: SERTRALINE 50 MG (ZOLOFT) TABLET PO SCH (08:21)
[2016-06-24] MEDS: cefTRIAXone INJECTION 1,000 MG in NORMAL SALINE (BAXTER MINI) 50 ML IV SCH (08:22)
[2016-06-24] MEDS: TIOTROPIUM BROMIDE (SPIRIVA) 5'S INHALER IH SCH (09:00)
[2016-06-24] MEDS ORDERED: KCL 20 MEQ TAB (K-DUR) PO NR (09:45)
--- NOTE | 2016-06-24 09:48 | Diagnostic Imaging Report ---
EXAMINATION: Chest radiograph, portable AP view. DATE: June 24, 2016, at 0509 hours. INDICATION: 66-year-old female, hypoxia. COMPARISON: June 23, 2016. FINDINGS: Stable overall appearance of the cardiomediastinal silhouette. There is no identified pneumothorax. There is no large pleural effusion. There is no identified focal airspace consolidation. IMPRESSION: No identified acute cardiopulmonary abnormality. Dictated by: Dictated on workstation # [id number]
--- NOTE | 2016-06-24 11:48 | Progress Note (SOAP) ---
Subjective Subjective/Events-last exam Pt reports feeling better and wanting to go home. She is still maintained on 9L HF at 63% FIO2. Reports she was coughing all night. Afebrile. Date seen by provider: Jun 24, 2016 Time seen by provider: 09:05 Objective Exam Last Set of Vital Signs Vital Signs Date Time Temp Pulse Resp B/P Pulse Ox O2 Delivery O2 Flow Rate FiO2 06/24/16 10:37 91 High Flow N/C 9.00 63 06/24/16 08:00 98.2 100 24 113/61 Capillary Refill : Less Than 3 Seconds I&O Intake and Output 06/24/16 00:00 Intake Total 1350 ml Output Total 350 ml Balance 1000 ml Intake Oral 1100 ml IV Total 250 ml Output Urine Total 350 ml # Voids 5 # Bowel Movements 2 General: Alert, Oriented X3, Cooperative, No Acute Distress Lungs: Other (wheezing and crackles throughout; decreased air excursion) Heart: Regular Rate Psych/Mental Status: Mood NL Results/Procedures Lab Laboratory Tests 06/23/16 14:31: Lv Test YES-POS, Arterial Blood Base Excess 3.0H, Arterial Blood HCO3 29H, Arterial Blood Oxygen Saturation 97, Arterial Blood Partial Pressure CO2 45, Arterial Blood Partial Pressure O2 87, Arterial Blood Total CO2 30.1, Arterial Blood pH 7.41, Blood Gas Inspired Oxygen 70%, Blood Gas Patient Temperature 95.7 , Blood Gas Puncture Site RT RAD, Blood Gas Ventilator Setting NO 06/24/16 05:51: Anion Gap 13, BUN/Creatinine Ratio 16, Basophils # (Auto) 0.0, Basophils (%) ( Auto) 0, Blood Urea Nitrogen 16, Calcium Level 8.6, Carbon Dioxide Level 26, Chloride Level 95L, Creatinine 0.97, Eosinophils # (Auto) 0.0, Eosinophils (%) ( Auto) 0, Estimat Glomerular Filtration Rate 58, Glucose Level 217H, Hematocrit 35, Hemoglobin 11.2L, Lymphocytes # (Auto) 0.5L, Lymphocytes (%) (Auto) 7L, Mean Corpuscular Hemoglobin 27, Mean Corpuscular Hemoglobin Concent 32, Mean Corpuscular Volume 84, Mean Platelet Volume 10.5H, Monocytes # (Auto) 0.3, Monocytes (%) (Auto) 3, Neutrophils # (Auto) 6.9, Neutrophils (%) (Auto) 90H, Platelet Count 205, Potassium Level 3.2L, Red Blood Count 4.17L, Red Cell Distribution Width 13.7, Sodium Level 134L, White Blood Count 7.7 Microbiology 06/22/16 Blood Culture - Preliminary, Resulted No growth 06/22/16 Influenza Types A,B Antigen (ADRIAN) - Final, Complete Assessment/Plan Assessment/Plan Plan ACUTE BACTERIAL EXACERBATION OF CHRONIC BRONCHITIS RESULTANT RESPIRATORY FAILURE WITH HYPOXIA ADM - we will keep patient on aggressive seroid dose for another 24h before weaning. she does appear quite ill and has end stage lung disease. she is on appropriate therapies at home though it appears doses need to be adjusted given her degree of lung disease. I will keep her on azithromycin and rocephin for pneumonia protocol though she does not technically have a CAP. She might also do well with doxy but was allergic to FQ. Her ABG today is much improved so we will keep her on the HiFLow Cannula and wean down as possible. Explained to patient that she will need to be in hospital for a few days, she was quite ready to leave already this morning. 06/24 - pt reports feeling improved though still maintained on 9L HF 63% FIO2 w / sat in the low 90's. Will decrease Solu-medrol to 40mg IV q6; add Mucinex HTN ADM - listed in clinic chart as PMH. BP here are somewhat low, so holding meds for now. DVT PROPH: SCDs Diagnosis/Problems: Clinical Quality Measures DVT/VTE Risk/Contraindication: Risk Factor Score Per Nursin RFS Level Per Nursing on Admit: 4+=Very High MILAGROS TERRY DO Jun 24, 2016 11:48
[2016-06-24] MEDS: methylPREDNISolone 40 MG/ML (Solu-MEDROL) VIAL IV SCH ×2 (13:52→18:12)
[2016-06-24] MEDS: guaiFENesin (MUCINEX) 600 MG TAB PO SCH ×2 (13:52→20:02)
[2016-06-24] MEDS: cefTRIAXone 1 GM/NS 50 ML IVPB IV SCH ×2 (20:02)
[2016-06-24] MEDS: FAMOTIDINE 20 MG (PEPCID) TABLET PO SCH (20:03)
[2016-06-25] MEDS: methylPREDNISolone 40 MG/ML (Solu-MEDROL) VIAL IV SCH ×2 (01:05→06:39)
[2016-06-25 03:21] VITALS: BP 140/68
[2016-06-25 05:10] LABS: BASOPHILS % (AUTO) 0 % (0-10); EOSINOPHILS % (AUTO) 0 % (0-10); LYMPHOCYTES # (AUTO) 0.6 X 10^3 (1.0-4.0); LYMPHOCYTES % (AUTO) 6 % (12-44); MEAN CORPUSCULAR HEMOGLOBIN 27 PG (25-34); MEAN CORPUSCULAR HGB CONC 32 G/DL (32-36); MEAN CORPUSCULAR VOLUME 85 FL (80-99); MEAN PLATELET VOLUME 10.3 FL (7.4-10.4); MONOCYTES # (AUTO) 0.4 X 10^3 (0.0-1.0); MONOCYTES % (AUTO) 4 % (0-12); NEUTROPHILS # (AUTO) 9.4 X 10^3 (1.8-7.8); NEUTROPHILS % (AUTO) 91 % (42-75); PLATELET COUNT 217 10^3/uL (130-400); RED BLOOD COUNT 4.03 10^6/uL (4.35-5.85); WHITE BLOOD COUNT 10.3 10^3/uL (4.3-11.0)
[2016-06-25 05:29] LABS: CALCIUM 8.4 MG/DL (8.5-10.1); CREATININE SERUM 0.97 MG/DL (0.60-1.30); MAGNESIUM 2.1 MG/DL (1.8-2.4); POTASSIUM 3.7 MMOL/L (3.6-5.0)
[2016-06-25] MEDS: KCL 20 MEQ TAB (K-DUR) PO SCH (06:39)
[2016-06-25] MEDS: RT-ALBUTEROL/IPRATROPIUM 3 ML (DUONEB) VIAL INH SCH ×4 (07:34→19:44)
--- NOTE | 2016-06-25 07:42 | Diagnostic Imaging Report ---
EXAMINATION: Chest radiograph, portable AP view. DATE: June 25, 2016 at 0455 hours. INDICATION: 66-year-old female, hypoxia. COPD exacerbation. COMPARISON: June 24, 2016. FINDINGS: Stable overall appearance of the cardiomediastinal silhouette. There is no identified pneumothorax. There is no large pleural effusion. There is no identified interval focal airspace consolidation. Pulmonary vascular markings. IMPRESSION: 1. No identified interval acute cardiopulmonary abnormality. Dictated by: Dictated on workstation # [id number]
[2016-06-25 08:00] VITALS: BP 138/64
[2016-06-25] MEDS: RT-ADVAIR HFA 115/21 MCG PER PUFF IH SCH ×2 (08:12→19:44)
[2016-06-25] MEDS ORDERED: NORMAL SALINE (BAXTER MINI) 50 ML IV ONE ×2 (08:14→21:04)
[2016-06-25] MEDS ORDERED: cefTRIAXone 1 GM (ROCEPHIN) VIAL ONE ×2 (08:14→21:04)
[2016-06-25] MEDS: AZITHROMYCIN 250 MG TAB (ZITHROMAX) PO SCH (08:25)
[2016-06-25] MEDS: diphenhydrAMINE 25 MG TAB (BENADRYL) PO SCH (08:25)
[2016-06-25] MEDS: HYDROcodone/APAP 7.5 MG/325 MG (LORTAB, LORCET PLUS) TABLET PO SCH ×3 (08:25→21:17)
[2016-06-25] MEDS: ALPRAZolam 1 MG (XANAX) TAB PO SCH ×2 (08:25→21:17)
[2016-06-25] MEDS: ASPIRIN E.C. 325 MG (ECOTRIN) TABLET PO SCH (08:25)
[2016-06-25] MEDS: guaiFENesin (MUCINEX) 600 MG TAB PO SCH ×2 (08:25→21:17)
[2016-06-25] MEDS: SERTRALINE 50 MG (ZOLOFT) TABLET PO SCH (08:25)
[2016-06-25] MEDS: cefTRIAXone INJECTION 1,000 MG in NORMAL SALINE (BAXTER MINI) 50 ML IV SCH (08:26)
--- NOTE | 2016-06-25 11:13 | Progress Note (SOAP) ---
Subjective Subjective/Events-last exam Pt reports feeling improved. Continues to cough and wheeze. Objective Exam Last Set of Vital Signs Vital Signs Date Time Temp Pulse Resp B/P Pulse Ox O2 Delivery O2 Flow Rate FiO2 06/25/16 10:19 91 Vapotherm 7.00 40 06/25/16 03:21 98.1 90 16 140/68 Capillary Refill : Less Than 3 Seconds I&O Intake and Output 06/25/16 00:00 Intake Total 2240 ml Output Total 500 ml Balance 1740 ml Intake Oral 2240 ml Output Urine Total 500 ml # Voids 5 # Bowel Movements 5 General: Alert, Oriented X3, Cooperative Lungs: Other (wheezing throughout) Heart: Regular Rate Psych/Mental Status: Mood NL Results/Procedures Lab Laboratory Tests 06/25/16 04:51: Anion Gap 13, BUN/Creatinine Ratio 20, Basophils # (Auto) 0.0, Basophils (%) ( Auto) 0, Blood Urea Nitrogen 19H, Calcium Level 8.4L, Carbon Dioxide Level 25, Chloride Level 100, Creatinine 0.97, Eosinophils # (Auto) 0.0, Eosinophils (%) ( Auto) 0, Estimat Glomerular Filtration Rate 58, Glucose Level 197H, Hematocrit 34L, Hemoglobin 10.8L, Lymphocytes # (Auto) 0.6L, Lymphocytes (%) (Auto) 6L, Magnesium Level 2.1, Mean Corpuscular Hemoglobin 27, Mean Corpuscular Hemoglobin Concent 32, Mean Corpuscular Volume 85, Mean Platelet Volume 10.3, Monocytes # (Auto) 0.4, Monocytes (%) (Auto) 4, Neutrophils # (Auto) 9.4H, Neutrophils (%) (Auto) 91H, Platelet Count 217, Potassium Level 3.7, Red Blood Count 4.03L, Red Cell Distribution Width 14.0, Sodium Level 138, White Blood Count 10.3 Microbiology 06/22/16 Blood Culture - Final, Complete No growth 06/22/16 MRSA Screen - Final, Complete MRSA not isolated Assessment/Plan Assessment/Plan Plan ACUTE BACTERIAL EXACERBATION OF CHRONIC BRONCHITIS RESULTANT RESPIRATORY FAILURE WITH HYPOXIA ADM - we will keep patient on aggressive seroid dose for another 24h before weaning. she does appear quite ill and has end stage lung disease. she is on appropriate therapies at home though it appears doses need to be adjusted given her degree of lung disease. I will keep her on azithromycin and rocephin for pneumonia protocol though she does not technically have a CAP. She might also do well with doxy but was allergic to FQ. Her ABG today is much improved so we will keep her on the HiFLow Cannula and wean down as possible. Explained to patient that she will need to be in hospital for a few days, she was quite ready to leave already this morning. 06/24 - pt reports feeling improved though still maintained on 9L HF 63% FIO2 w / sat in the low 90's. Will decrease Solu-medrol to 40mg IV q6; add Mucinex 06/25 - Oxygen weaning, currently 7L 40% FIO2; will continue to wean to keep sats >88%; change steroids to po HTN ADM - listed in clinic chart as PMH. BP here are somewhat low, so holding meds for now. DVT PROPH: SCDs Disp: anticipate DC home tomorrow if able to continue to wean O2 Diagnosis/Problems: Clinical Quality Measures DVT/VTE Risk/Contraindication: Risk Factor Score Per Nursin RFS Level Per Nursing on Admit: 4+=Very High MILAGROS TERRY DO Jun 25, 2016 11:13
[2016-06-25 12:00] VITALS: BP 130/60
[2016-06-25 16:00] VITALS: BP 134/69
[2016-06-25] MEDS: predniSONE 20 MG TAB PO SCH (17:59)
[2016-06-25 20:39] VITALS: BP 146/84
[2016-06-25] MEDS ORDERED: predniSONE 20 MG TAB PO SCH (21:00)
[2016-06-25] MEDS: cefTRIAXone 1 GM/NS 50 ML IVPB IV SCH ×2 (21:17)
[2016-06-25] MEDS: FAMOTIDINE 20 MG (PEPCID) TABLET PO SCH (21:17)
[2016-06-25 23:28] VITALS: BP 160/71
[2016-06-26 03:47] VITALS: BP 155/76
[2016-06-26] MEDS: KCL 20 MEQ TAB (K-DUR) PO SCH (06:45)
[2016-06-26] MEDS: predniSONE 20 MG TAB PO SCH ×2 (06:45→16:57)
[2016-06-26] MEDS: RT-ALBUTEROL/IPRATROPIUM 3 ML (DUONEB) VIAL INH SCH ×4 (06:48→19:22)
[2016-06-26] MEDS: RT-ADVAIR HFA 115/21 MCG PER PUFF IH SCH ×2 (06:55→19:22)
[2016-06-26 07:23] LABS: BASOPHILS % (AUTO) 0 % (0-10); EOSINOPHILS % (AUTO) 0 % (0-10); LYMPHOCYTES # (AUTO) 1.4 X 10^3 (1.0-4.0); LYMPHOCYTES % (AUTO) 12 % (12-44); MEAN CORPUSCULAR HEMOGLOBIN 27 PG (25-34); MEAN CORPUSCULAR HGB CONC 32 G/DL (32-36); MEAN CORPUSCULAR VOLUME 85 FL (80-99); MEAN PLATELET VOLUME 10.5 FL (7.4-10.4); MONOCYTES # (AUTO) 0.7 X 10^3 (0.0-1.0); MONOCYTES % (AUTO) 6 % (0-12); NEUTROPHILS # (AUTO) 9.6 X 10^3 (1.8-7.8); NEUTROPHILS % (AUTO) 82 % (42-75); PLATELET COUNT 220 10^3/uL (130-400); RED BLOOD COUNT 4.02 10^6/uL (4.35-5.85); RED CELL DISTRIBUTION WIDTH 14.2 % (10.0-14.5); WHITE BLOOD COUNT 11.7 10^3/uL (4.3-11.0)
[2016-06-26 07:46] LABS: ANION GAP 9 MMOL/L (5-14); BLOOD UREA NITROGEN 18 MG/DL (7-18); BUN/CREATININE RATIO 21; CALCIUM 8.4 MG/DL (8.5-10.1); CARBON DIOXIDE 27 MMOL/L (21-32); CHLORIDE 101 MMOL/L (98-107); CREATININE SERUM 0.84 MG/DL (0.60-1.30); GFR ESTIMATED > 60; GLUCOSE 134 MG/DL (70-105); POTASSIUM 3.5 MMOL/L (3.6-5.0); SODIUM 137 MMOL/L (135-145)
[2016-06-26 08:00] VITALS: BP 155/71
[2016-06-26] MEDS ORDERED: cefTRIAXone 1 GM (ROCEPHIN) VIAL ONE ×2 (08:48→19:55)
[2016-06-26] MEDS ORDERED: NORMAL SALINE (BAXTER MINI) 50 ML IV ONE ×2 (08:49→19:55)
[2016-06-26] MEDS: guaiFENesin (MUCINEX) 600 MG TAB PO SCH ×2 (08:58→20:03)
[2016-06-26] MEDS: SERTRALINE 50 MG (ZOLOFT) TABLET PO SCH (08:58)
[2016-06-26] MEDS: AZITHROMYCIN 250 MG TAB (ZITHROMAX) PO SCH (08:58)
[2016-06-26] MEDS: cefTRIAXone INJECTION 1,000 MG in NORMAL SALINE (BAXTER MINI) 50 ML IV SCH (08:58)
[2016-06-26] MEDS: ALPRAZolam 1 MG (XANAX) TAB PO SCH ×2 (08:58→20:03)
[2016-06-26] MEDS: ASPIRIN E.C. 325 MG (ECOTRIN) TABLET PO SCH (08:58)
[2016-06-26] MEDS: diphenhydrAMINE 25 MG TAB (BENADRYL) PO SCH (08:58)
[2016-06-26] MEDS: HYDROcodone/APAP 7.5 MG/325 MG (LORTAB, LORCET PLUS) TABLET PO SCH ×3 (08:59→20:04)
--- NOTE | 2016-06-26 08:59 | Diagnostic Imaging Report ---
INDICATION: COPD with hypoxia. FINDINGS: Symmetrical air trapping is a stable chronic finding. There is some stable scarring in the left base versus subsegmental atelectasis. No pneumonia. No failure pattern. IMPRESSION: Hyperexpanded lungs with air trapping. Minimal linear opacity in the left base, scarring versus atelectasis. The findings are unchanged. Dictated by: Dictated on workstation # [id number]
[2016-06-26] MEDS: UMECLIDINIUM BROMIDE (INCRUSE ELLIPTA) 7'S IH SCH (10:49)
--- NOTE | 2016-06-26 10:50 | Progress Note (SOAP) ---
Subjective Subjective/Events-last exam States that she is feeling good but she is not sure she is ready to go home yet. States she is still very short of breath. Today started having some soft BM. Patient denies any previous h/o C. Diff and denies watery, liquid BMs. Tolerating PO. Still on 4L oxygen Date seen by provider: Jun 26, 2016 Review of Systems General: No Chills, No Fatigue HEENT: Sinus Congestion Pulmonary: Dyspnea Cough Cardiovascular: No: Chest Pain, Palpitations Gastrointestinal: : DiarrheaNo: Abdominal Pain, Nausea Genitourinary: No Dysuria Objective Exam Last Set of Vital Signs Vital Signs Date Time Temp Pulse Resp B/P Pulse Ox O2 Delivery O2 Flow Rate FiO2 06/26/16 08:00 95 Nasal Cannula 6.00 06/26/16 08:00 98.0 88 24 155/71 06/25/16 19:44 35 Capillary Refill : Less Than 3 Seconds I&O Intake and Output 06/26/16 00:00 Intake Total 1600 ml Output Total 1000 ml Balance 600 ml Intake Oral 1550 ml IV Total 50 ml Output Urine Total 1000 ml # Voids 4 # Bowel Movements 4 General: Alert, Oriented X3, Cooperative, Mild Distress (can only speak 3-5 words without taking breath) Neck: Supple, No JVD Lungs: Other (Diffuse wheezing) Heart: Regular Rate, Normal S1, Normal S2, No Murmurs Abdomen: Normal Bowel Sounds, Soft, No Tenderness, No Hepatosplenomegaly, No Masses Extremities: No Edema, Normal Pulses, No Tenderness/Swelling Skin: No Rashes Neuro: Cranial Nerves 3-12 NL Psych/Mental Status: Mental Status NL, Mood NL Results/Procedures Lab Laboratory Tests 06/26/16 06:25: Anion Gap 9, BUN/Creatinine Ratio 21, Basophils # (Auto) 0.0, Basophils (%) ( Auto) 0, Blood Urea Nitrogen 18, Calcium Level 8.4L, Carbon Dioxide Level 27, Chloride Level 101, Creatinine 0.84, Eosinophils # (Auto) 0.0, Eosinophils (%) ( Auto) 0, Estimat Glomerular Filtration Rate > 60, Glucose Level 134H, Hematocrit 34L, Hemoglobin 10.9L, Lymphocytes # (Auto) 1.4, Lymphocytes (%) ( Auto) 12, Mean Corpuscular Hemoglobin 27, Mean Corpuscular Hemoglobin Concent 32 , Mean Corpuscular Volume 85, Mean Platelet Volume 10.5H, Monocytes # (Auto) 0.7 , Monocytes (%) (Auto) 6, Neutrophils # (Auto) 9.6H, Neutrophils (%) (Auto) 82H , Platelet Count 220, Potassium Level 3.5L, Red Blood Count 4.02L, Red Cell Distribution Width 14.2, Sodium Level 137, White Blood Count 11.7H Microbiology 06/22/16 Blood Culture - Final, Complete No growth 06/22/16 MRSA Screen - Final, Complete MRSA not isolated Assessment/Plan Assessment/Plan Plan ACUTE BACTERIAL EXACERBATION OF CHRONIC BRONCHITIS RESULTANT RESPIRATORY FAILURE WITH HYPOXIA ADM - we will keep patient on aggressive seroid dose for another 24h before weaning. she does appear quite ill and has end stage lung disease. she is on appropriate therapies at home though it appears doses need to be adjusted given her degree of lung disease. I will keep her on azithromycin and rocephin for pneumonia protocol though she does not technically have a CAP. She might also do well with doxy but was allergic to FQ. Her ABG today is much improved so we will keep her on the HiFLow Cannula and wean down as possible. Explained to patient that she will need to be in hospital for a few days, she was quite ready to leave already this morning. 06/24 - pt reports feeling improved though still maintained on 9L HF 63% FIO2 w / sat in the low 90's. Will decrease Solu-medrol to 40mg IV q6; add Mucinex / - Oxygen weaning, currently 7L 40% FIO2; will continue to wean to keep sats >88%; change steroids to po 1/2- Patient on 4L oxygen this AM, home oxygen is 2.5L. Ordered PT today, Up to chair for meals today HTN 1/2- Will restart home medications DVT PROPH: SCDs Disp: Will wean to home oxygen level this AM and if patient tolerates will plan for d/c later today Diagnosis/Problems: Clinical Quality Measures DVT/VTE Risk/Contraindication: Risk Factor Score Per Nursin RFS Level Per Nursing on Admit: 4+=Very High SUZY ESPINOZA MD Jun 26, 2016 10:50
[2016-06-26 11:57] VITALS: BP 140/77
--- NOTE | 2016-06-26 15:19 | Physical Therapy Progress Note ---
Therapy Progress Note Evaluation attempted this afternoon. Patient refused. She states she has been ambulating to the bathroom and was having no trouble getting around. She refused again when encouraged to at least get out of bed to walk. Will try again in the morning, but patient states she will be leaving in the morning. LORIE GÓMEZ PT Jun 26, 2016 15:19
[2016-06-26 16:00] VITALS: BP 157/68
[2016-06-26] MEDS ORDERED: ENOXAPARIN 40 MG/0.4 ML (LOVENOX) SYR SC SCH (16:45)
[2016-06-26] MEDS: FAMOTIDINE 20 MG (PEPCID) TABLET PO SCH (20:03)
[2016-06-26] MEDS: cefTRIAXone 1 GM/NS 50 ML IVPB IV SCH ×2 (20:05)
[2016-06-27] VITALS: BP 174/82
[2016-06-27] MEDS: predniSONE 20 MG TAB PO SCH (06:07)
[2016-06-27] MEDS: KCL 20 MEQ TAB (K-DUR) PO SCH (06:07)
[2016-06-27 06:25] LABS: BASOPHILS # (AUTO) 0.1 10^3/uL (0.0-0.1); BASOPHILS % (AUTO) 0 % (0-10); EOSINOPHILS % (AUTO) 0 % (0-10); LYMPHOCYTES # (AUTO) 1.9 X 10^3 (1.0-4.0); LYMPHOCYTES % (AUTO) 15 % (12-44); MEAN CORPUSCULAR HEMOGLOBIN 27 PG (25-34); MEAN CORPUSCULAR HGB CONC 32 G/DL (32-36); MEAN CORPUSCULAR VOLUME 84 FL (80-99); MEAN PLATELET VOLUME 10.2 FL (7.4-10.4); MONOCYTES # (AUTO) 0.7 X 10^3 (0.0-1.0); MONOCYTES % (AUTO) 5 % (0-12); NEUTROPHILS # (AUTO) 10.3 X 10^3 (1.8-7.8); NEUTROPHILS % (AUTO) 80 % (42-75); PLATELET COUNT 207 10^3/uL (130-400); RED BLOOD COUNT 4.08 10^6/uL (4.35-5.85); RED CELL DISTRIBUTION WIDTH 14.1 % (10.0-14.5)
[2016-06-27 06:59] LABS: ANION GAP 12 MMOL/L (5-14); BLOOD UREA NITROGEN 16 MG/DL (7-18); BUN/CREATININE RATIO 19; CALCIUM 8.1 MG/DL (8.5-10.1); CARBON DIOXIDE 24 MMOL/L (21-32); CHLORIDE 103 MMOL/L (98-107); CREATININE SERUM 0.85 MG/DL (0.60-1.30); GFR ESTIMATED > 60; GLUCOSE 153 MG/DL (70-105); POTASSIUM 3.2 MMOL/L (3.6-5.0); SODIUM 139 MMOL/L (135-145)
[2016-06-27] MEDS: RT-ADVAIR HFA 115/21 MCG PER PUFF IH SCH (07:55)
[2016-06-27] MEDS: UMECLIDINIUM BROMIDE (INCRUSE ELLIPTA) 7'S IH SCH (07:55)
[2016-06-27] MEDS: RT-ALBUTEROL/IPRATROPIUM 3 ML (DUONEB) VIAL INH SCH ×2 (07:55→10:27)
[2016-06-27] MEDS: guaiFENesin (MUCINEX) 600 MG TAB PO SCH (08:03)
[2016-06-27] MEDS: SERTRALINE 50 MG (ZOLOFT) TABLET PO SCH (08:03)
[2016-06-27] MEDS: ASPIRIN E.C. 325 MG (ECOTRIN) TABLET PO SCH (08:03)
[2016-06-27] MEDS: HYDROcodone/APAP 7.5 MG/325 MG (LORTAB, LORCET PLUS) TABLET PO SCH (08:03)
[2016-06-27] MEDS: diphenhydrAMINE 25 MG TAB (BENADRYL) PO SCH (08:03)
[2016-06-27] MEDS: ALPRAZolam 1 MG (XANAX) TAB PO SCH (08:03)
[2016-06-27 08:16] VITALS: BP 163/72
--- NOTE | 2016-06-27 08:26 | Physician Query-General Query ---
Physician Query-General Query to Physician: For clarification: Dr. Pepe documented that the patient arrived with pulse ox of 78%. Pulse was 121 and respirations of 20 that sharona to 36. IVP Solu Medrol was given. Chronic respiratory failure was documented. Did this patient have acute on chronic respiratory failure on admission or chronic only? Please clarify. Thank you. PHYSICIAN RESPONSE: Based on the clinical findings in the record, please respond to the query above on this document as an addendum. Possible, probable, or questionable diagnosis can be coded for INPATIENTS ONLY. Physician Response: Physician Response I did not do the admission on this patient. Please contact the admitting doctor If you have questions please contact: Director Of Reimbursement:Hanane Hamilton CCS,CCDS Ext:[phone] Thank you for your time and cooperation. Clinical Financial Business Analyst/Director Of Reimbursement This is a permanent part of the medical record HANANE HAMILTON Jun 27, 2016 08:26 SUZY ESPINOZA MD Jun 28, 2016 14:19
--- NOTE | 2016-06-27 09:04 | Diagnostic Imaging Report ---
INDICATION: COPD exacerbation, hypoxia. TECHNIQUE: A frontal chest was obtained at 0507 hours. COMPARISON: 06/26/2016. FINDINGS: The heart is normal in size. The mediastinal silhouette is unremarkable. There are mild chronic appearing increased interstitial markings. There is no acute consolidation, pneumothorax, or pleural fluid. There is mild hyperinflation, compatible with COPD. IMPRESSION: Mild chronic appearing increased interstitial markings. No acute consolidation or pleural fluid. Mild hyperinflation, compatible with COPD. Dictated by: Dictated on workstation # [id number]
--- NOTE | 2016-06-27 10:01 | Physical Therapy Evaluation ---
PT Evaluation-General Medical Diagnosis Admission Date Jun 22, 2016 at 19:55 Medical Diagnosis: COPD exacerbation Onset Date: Jun 22, 2016 Therapy Diagnosis Therapy Diagnosis: debility Height/Weight Height (Feet): 5 Height (Inches): 4.00 Weight (Pounds): 168 Weight (Ounces): 6.0 Precautions Precautions/Isolations: Fall Prevention, Standard Precautions Referral Physician: Justin Reason for Referral: Evaluation/Treatment Medical History Pertinent Medical History: COPD, HTN Additional Medical History PE; anxiety; depression Current History ED with SOA and was placed on 2.5L O2, returned to home then back to ED Reviewed History: Yes Social History Home: Apartment Current Living Status: Alone Prior/Core FIM Prior Level of Function Functional [place] Measure 0=Not Assessed/NA 4=Minimal Assistance 1=Total Assistance 5=Supervision or Setup 2=Maximal Assistance 6=Modified [place] 3=Moderate Assistance 7=Complete [place] Bed Mobility: 7 Transfers (B,C,W/C) (FIM): 7 Gait: 6 uses cane at home; inactive PLOF per patient; household ambulation only due to COPD PT Evaluation-Current Subjective Patient is very reluctant to participate with PT, however, after much encouragement, patient agrees. Pain Numeric Pain Scale: 0-No Pain Location: No Pain Reported Objective Patient Orientation: Normal For Age Problem Solving: Fair Attachments: Oxygen ROM/Strength ROM Lower Extremities bilateral LE WNL Strenght Lower Extremities bilateral LE WNL Integumentary/Posture Integumentary refer to nursing notes Bowel Incontinence: No Bladder Incontinence: No Posture WNL Neuromuscular (Tone, Coordination, Reflexes) diminished coordination due to medications and inactivity. Sensory Vision: Functional Hearing: Functional Sensation Right Lower Extremit: Intact Sensation Left Lower Extremity: Intact Transfers Functional [place] Measure 0=Not Assessed/NA 4=Minimal Assistance 1=Total Assistance 5=Supervision or Setup 2=Maximal Assistance 6=Modified [place] 3=Moderate Assistance 7=Complete [place] Transfers (B, C, W/C) (FIM): 6 Scootin Rollin Supine to/from Sit: 7 Sit to/from Stand: 6 Gait Mode of Locomotion: Walk Anticipated Mode of Locomotion: Walk Gait (FIM): 4 Distance (FIM): 3=150 ft Distance: 150' Gait Level of Assist: 4 Gait Persons Needed: 1 Gait Assistive Device: None Comments/Gait Description slightly unsteady. patient had received, xanax, benadryl, zoloft, pain meds Balance Sitting Static: Normal Sitting Dynamic: Normal Standing Static: Fair Standing Dynamic: Fair Assessment/Needs 66 y.o. inactive female, will be seen x 2-4 sessions to ensure safe return to home at maximum LOF. Patient is limited secondary to COPD and O2 dependency Rehab Potential: Fair Post Rehab Potential-Barriers: inactivityi PT Short Term Goals Short Term Goals Time Frame: Jun 30, 2016 Transfers (B,C,W/C) (FIM): 6 Gait (FIM): 6 Distance (FIM): 3=150 ft Gait Assistive Device: Cane Single Point PT Plan Problem List Problem List: Activity Tolerance, Safety, Balance, Gait Treatment/Plan Treatment Plan: Continue Plan of Care Treatment Plan: Education, Functional Activity [place], Functional Strength, Gait , Safety, Therapeutic Exercise, Transfers Treatment Duration: Jun 30, 2016 # of days/week 4 Visits Per Week: 2-4 Pt/Family Agrees w/Plan: Yes Safety Risks/Education Patient Education: Gait Training, Safety Issues Teaching Recipient: Patient Teaching Methods: Demonstration, Discussion Response to Teaching: Verbalize Understanding, Return Demonstration Time/GCodes Time In: 911 Time Out: 936 Total Billed Treatment Time: 25 Total Billed Treatment 1 visit EVM 25 min G Codes Necessary: MICHAEL Porter PT Jun 27, 2016 10:01
[2016-06-27] MEDS ORDERED: PRD10T PO (10:57)
--- NOTE | 2016-06-27 11:01 | Discharge Instructions ---
Discharge Counts include 234 beds at the [facility] Discharge Medications New, Converted or Re-Newed RX: Transmitted to Pharmacy New Medications: Prednisone (Prednisone) 10 Mg Tab 10 MG PO DAILY Take 4 Tabs x 3 Days Take 3 Tabs x 3 Days Take 2 Tabs x 3 days take 1 tab x 3 days take 1/2 tab x 4 days Stop #30 TAB Continued Medications: Acyclovir (Acyclovir) 200 Mg Capsule 200 MG PO TID PRN COLD SORES CAP Albuterol Sulfate (Ventolin Hfa) 18 Gm Hfa.aer.ad 2 PUFF IH Q6H PRN SHORTNESS OF BREATH Alprazolam (Alprazolam) 1 Mg Tablet 1 MG PO BID Aspirin (Aspirin) 325 Mg Tablet 650 MG PO Q6H TAKES 2 (325 MG) TABLETS PRN FEVER TAB Diphenhydramine HCl (Benadryl) 25 Mg Capsule 50 MG PO BID PRN ALLERGIES CAP Fluticasone/Salmeterol (Advair 250-50 Diskus) 1 Each Blst.w.dev 1 PUFF IH DAILY Hydrocodone/Acetaminophen (Hydrocodon-Acetaminoph 7.5-325) 1 Each Tablet 1 TAB PO TID Losartan/Hydrochlorothiazide (Losartan-Hctz 100-25 mg Tab) 1 Each Tablet 1 TAB PO EVERY OTHER DAY Potassium Chloride (Potassium Chloride) 10 Meq Tablet.er 10 MEQ PO EVERY OTHER DAY LAST FILLED 12/30/15 #30 TAB Ranitidine HCl (Ranitidine HCl) 300 Mg Tablet 300 MG PO HS Sertraline HCl (Sertraline HCl) 50 Mg Tablet 50 MG PO DAILY Patient Instructions Goal/Follow Up Appt: You have an Appt with Dr Chu Jul 03 @ 9AM at [facility] Patient Instructions: Be sure to take your prednisone and taper as says on the bottle Make sure that you are taking all your inhalers Encourage patient to ambulate around her house for at least 30 mins per day Return to The Hospital For: Chest pain Increased oxygen need Fever Unable to take medications Activity & Diet Discharge Diet: Low Sodium Diet Activity as Tolerated: Yes Copy Copies To 1: ANDREA CHU MD, HOLLY R MD Jun 27, 2016 11:01
--- NOTE | 2016-06-27 11:02 | Discharge Summary ---
Diagnosis/Chief Complaint Date of Admission Jun 22, 2016 at 19:55 Date of Discharge 06/27/2016 Admission Diagnosis Admission Diagnosis Respiratory Failure COPD Exacerbation HTN Discharge Diagnosis See Above Chief Complaint/HPI Chief Complaint/HPI 66YO WOMAN presented to [facility] with her family after they noticed she appeared hshort of breath. In clinic, patient had O2 sat of 78% on her usual 2.5L flow of oxygen. Today, patient states that she "feels the same as usual" and that she did not notice she was gettign sick. Denies fever, cough, fatigue. Patient states she does not like going to the doctor and so avoids it. Discharge Summary-Simple/Stand Consultations Discharge Physical Examination Allergies: Coded Allergies: levofloxacin (Verified Allergy, Severe, SEVERE SWELLING OF KNEES, 08/07/14) ibuprofen (Verified Allergy, Unknown, 06/22/16) zolpidem (Verified Allergy, Unknown, 06/22/16) Uncoded Allergies: H[place] (Allergy, Severe, ANAPHYLAXIS, 08/07/14) Vitals & I&Os Vital Sign - Last 12Hours Date Time Temp Pulse Resp B/P Pulse Ox O2 Delivery O2 Flow Rate FiO2 06/27/16 08:16 97.4 78 18 163/72 95 High Flow NC 63.00 3.00 06/25/16 19:44 35 Intake and Output 06/27/16 00:00 Intake Total 1200 ml Output Total 1100 ml Balance 100 ml General Appearance: Alert, Oriented X3, Cooperative, No Acute Distress HEENT: Atraumatic, PERRLA, EOMI, Mucous Memb Moist/[place] Respiratory: Clear to Auscultation, Normal Air Movement Cardiovascular: Regular Rate, No Murmurs Abdominal: Normal Bowel Sounds, Soft, No Tenderness, No Hepatosplenomegaly, No Masses Extremities: No Clubbing, No Cyanosis, No Edema, Normal Pulses, No Tenderness/ Swelling Skin: No Rashes, No Breakdown Neuro: Normal Speech, Strength at 5/5 X4 Ext, Sensation Intact, Cranial Nerves 3-12 NL Psych/Mental Status: Mental Status NL, Mood NL Hospital Course See final discharge diagnosis. Pending Labs none Radiology Reviewed CXR showed interstitial markings w/o overt consolidation Discussion & Recommendations 66 yo F with known oxygen dependence that was admitted with hypoxia and increase oxygen demand. Patient was started on treatment for COPD exacerbation including antibiotics and took several days to get weened back down to her normal oxygen requirement. Discharge Condition at discharge Improved and stable on home oxygen requirement Instructions to patient/family Please see electonic discharge instructions given to patient. Discharge Medications Reviewed and agree with Discharge Medication list on patient's Discharge Instruction sheet Clinical Quality Measures DVT/VTE Risk/Contraindication: Risk Factor Score Per Nursin RFS Level Per Nursing on Admit: 4+=Very High Copy Copies To 1: ANDREA CHU MD, HOLLY R MD Jun 27, 2016 11:02
[2016-06-27 13:05] VITALS: BP 163/72
--- NOTE | 2016-06-29 07:55 | Physician Query-General Query ---
Physician Query-General Query to Physician: For clarification: Dr. Pepe documented that the patient arrived with pulse ox of 78%. Pulse was 121 and respirations 20 that sharona to 36. IVP Solu Medrol was given. Chronic respiratory failure was documented. Your history and physical listed resultant respiratory failure with hypoxia. Did this patient qualify for acute respiratory failure, acute on chronic respiratory failure or chronic respiratory failure? Please specify. Thank you. PHYSICIAN RESPONSE: Based on the clinical findings in the record, please respond to the query above on this document as an addendum. Possible, probable, or questionable diagnosis can be coded for INPATIENTS ONLY. Physician Response: Physician Response ACUTE ON CHRONIC RESPIRATORY FAILURE If you have questions please contact: Blow Molding Machine Operator:Hanane Hamilton [facility], CCDS Ext:[phone] Thank you for your time and cooperation. Clinical Blue Crabber/Blow Molding Machine Operator This is a permanent part of the medical record HANANE HAMILTON Jun 29, 2016 07:55 BIA HUTCHINSON MD Jun 29, 2016 09:45
== END 2016-06-27 13:04 | disposition home or self-care (01) | DRG 189 ==
LOC: EDUNIT# 17:52 → ER 17:53 → ICU 19:55 → 4TH 06-23 16:50
PROVIDERS: ADMIT Family Medicine; ATTEND Pediatrics
DX: J96.21 Acute and chronic respiratory failure with hypoxia (principal); J44.0 Chronic obstructive pulmonary disease with (acute) lower respiratory infection; J20.9 Acute bronchitis, unspecified; A49.9 Bacterial infection, unspecified; J44.1 Chronic obstructive pulmonary disease with (acute) exacerbation; I10 Essential (primary) hypertension; K21.9 Gastro-esophageal reflux disease without esophagitis; F41.9 Anxiety disorder, unspecified; F32.9 Major depressive disorder, single episode, unspecified; I69.898 Other sequelae of other cerebrovascular disease; H54.60 Unqualified visual loss, one eye, unspecified; Z99.81 Dependence on supplemental oxygen; Z86.711 Personal history of pulmonary embolism
CPT/HCPCS: 36415; 71010; 80048; 80053; 82805; 83605; 83735; 83880; 84100; 85025; 85610; 85730; 87040; 87081; 87804; 93005; 93041; 94640; 94760; 96365; 96375

== ENCOUNTER 2016-07-07 01:41 | Observation (INO) | payer MEDICARE, MEDICAID ==
[~2016-07-07] VITALS: Ht 162.6 cm; Wt 76.8 kg
[2016-07-07] VITALS (13 sets, daily range): BP systolic 107–138; BP diastolic 58–93
[~2016-07-07 01:41] MED LIST changes: +ACYC200C PO; +ASPI-808 PO; +ASPI-9 PO; +DIPH25CA79 PO; +LOSA1TAB70 PO; +POTA10TA10 PO; +RT-ALBUINH IH
--- NOTE | 2016-07-07 01:53 | ED Neurological Problem ---
General Chief Complaint: Altered Mental Status Stated Complaint: STROKE LIKE SYMPTOMS Source: patient (SOMEWHAT LIMITED HISTORIAN), family (DAUGHTER GIVES MOST INFORMATION) History of Present Illness Time seen by provider: 01:41 Initial Comments PT ARRIVES VIA POV FROM HOME DAUGHTER STATES THAT PT SENT HER A NORMAL FACEBOOK MESSAGE AT 1925 TONIGHT, STATES A SHORT TIME AFTER THAT ( UNSURE WHAT TIME) PT SENT HER ANOTHER FACEBOOK MESSAGE THAT DIDN'T MAKE SENSE--STATES IT WASN'T ANY WORDS AT ALL. PT HAD A HEADACHE EARLIER, BUT NOT NOW--TOOK 2 FULL 325 MG ASPIRIN EARLIER FOR HEADACHE. STATES HER VISION WAS "MESSED UP" AND HAD TO CLOSE HER LEFT EYE TO SEE ANYTHING , OR TO TYPE C/O NAUSEA, NO VOMITING PT WAS SEEN HERE AND ADMITTED 06/23-06/27/16 FOR LOW O2 SATS /COPD EXACERBATION- -PT WEARS HOME O2 AT 2 1/2 LITERS CONTINUOUSLY [facility] Allergies and Home Medications Allergies Coded Allergies: levofloxacin (Verified Allergy, Severe, SEVERE SWELLING OF KNEES, 08/07/14) ibuprofen (Verified Allergy, Unknown, 06/22/16) zolpidem (Verified Allergy, Unknown, 06/22/16) Uncoded Allergies: HONEY BEES (Allergy, Severe, ANAPHYLAXIS, 08/07/14) Home Medications Acyclovir 200 Mg Capsule 200 MG PO TID PRN PRN COLD SORES (Reported) Albuterol Sulfate 18 Gm Hfa.aer.ad 2 PUFF IH Q6H PRN PRN SHORTNESS OF BREATH ( Reported) Alprazolam 1 Mg Tablet 1 MG PO BID (Reported) Aspirin 325 Mg Tablet 650 MG PO Q6H PRN PRN FEVER (Reported) TAKES 2 (325 MG) TABLETS Diphenhydramine HCl 25 Mg Capsule 50 MG PO BID PRN PRN ALLERGIES (Reported) Fluticasone/Salmeterol 1 Each Blst.w.dev 1 PUFF IH DAILY (Reported) Hydrocodone/Acetaminophen 1 Each Tablet 1 TAB PO TID (Reported) Losartan/Hydrochlorothiazide 1 Each Tablet 1 TAB PO EVERY OTHER DAY (Reported) Potassium Chloride 10 Meq Tablet.er 10 MEQ PO EVERY OTHER DAY (Reported) LAST FILLED 12/30/15 #30 Prednisone 10 Mg Tab #30 10 MG PO DAILY Take 4 Tabs x 3 Days Take 3 Tabs x 3 Days Take 2 Tabs x 3 days take 1 tab x 3 days take 1/2 tab x 4 days Stop Prescribed by: SUZY ESPINOZA on 06/27/16 1057 Ranitidine HCl 300 Mg Tablet 300 MG PO HS (Reported) Sertraline HCl 50 Mg Tablet 50 MG PO DAILY (Reported) Constitutional: no symptoms reported Eyes: See HPI Ears, Nose, Mouth, Throat: no symptoms reported Respiratory: no symptoms reported Cardiovascular: no symptoms reported Gastrointestinal: see HPI nauseaNo vomiting Genitourinary: no symptoms reported Musculoskeletal: no symptoms reported Skin: no symptoms reported Psychiatric/Neurological: See HPI Cognitive Dysfunction Headache Endocrine: No Symptoms Reported Hematologic/Lymphatic: No Symptoms Reported Past Zujctay-Dqayjk-Oegzus Hx Patient Social History Alcohol Use: Occasionally Uses (IN PAST) Recreational Drug Use: No Smoking Status: Former Smoker (1 PPD, QUIT) Recent Foreign Travel: No Contact w/Someone Who Travel: No Recent Hopitalizations: No Immunizations Up To Date Tetanus Booster (TDap): More than 5yrs PED Vaccines UTD: No Date of Pneumonia Vaccine: Mar 25, 2011 Date of Influenza Vaccine: Apr 03, 2016 Seasonal Allergies Seasonal Allergies: Yes Surgeries HX Surgeries: Yes (OPEN RIGHT SHOULDER, KNEE SURGERIES, CATARACT) Surgeries: Appendectomy, Section, Eye Surgery, Hysterectomy, Orthopedic Respiratory Hx Respiratory Disorders: Yes Respiratory Disorders: Pneumonia, Pulmonary Embolism, COPD Cardiovascular Hx Cardiac Disorders: Yes Cardiac Disorders: Hypertension Neurological Hx Neurological Disorders: No Reproductive System Hx Reproductive Disorders: No Sexually Transmitted Disease: No HIV/AIDS: No Female Reproductive Disorders: Denies Genitourinary Hx Genitourinary Disorders: Yes Genitourinary Disorders: UTI-Chronic Gastrointestinal Hx Gastrointestinal Disorders: Yes Gastrointestinal Disorders: Gastroesophageal Reflux Musculoskeletal Hx Musculoskeletal Disorders: Yes Musculoskeletal Disorders: Arthritis Endocrine Hx Endocrine Disorders: No HEENT HX ENT Disorders: Yes (stoke effecting rt eye ) HEENT Disorders: Cataract Loss of Vision: Right Hearing Impairment: Denies Cancer Hx Cancer: Yes (S/P HYST) Cancer: Cervical Psychosocial Hx Psychiatric Problems: Yes Behavioral Health Disorders: Anxiety, Depression Integumentary HX Skin/Integumentary Disorder: No Blood Transfusions Hx Blood Disorders: No Adverse Reaction to a Blood Tr: No Family Medical History Family Medial History: Arthritis 19 FATHER Asthma DAUGHTER Cancer 19 MOTHER G8 SISTER Cardiovascular disease 19 FATHER Colon cancer 19 MOTHER Coronary thrombosis DAUGHTER Diabetes mellitus DAUGHTER Drug abuse DAUGHTER Headache disorder DAUGHTER Hypercholesterolemia DAUGHTER Hypertension DAUGHTER Myocardial infarction 19 MOTHER Psychosocial problem DAUGHTER Respiratory disorder DAUGHTER Stroke Tuberculosis No Family History of: AIDS Abdominal aortic aneurysm Joon's disease Alcoholism Alzheimer's disease Aphasia Cancer of mouth Cataracts Completed stroke Congenital disease Congenital heart disease Congenital heart disease Cystic fibrosis Deafness or hearing loss Dementia Dysphasia Fibrocystic disease of breast Gastroenteritis Glaucoma Infertility Kidney disease Neoplasm Not obtainable due to adoption Osteoporosis Parkinson's disease Prostate cancer Seizure disorder Severe allergy Thyroid disease Visual disorder Physical Exam Vital Signs Vital Sign - Last 12Hours 07/07/16 01:46 Temp 99.4 Pulse 104 Resp 18 B/P 139/60 Pulse Ox 93 O2 Delivery Nasal Cannula O2 Flow Rate 3 Capillary Refill : General Appearance: WD/WN no apparent distress other (PART OF HAIR IS DYED [place]) HEENT: PERRL/EOMI Neck: non-tender full range of motion supple normal inspection Respiratory: normal breath sounds no respiratory distress no accessory muscle use Cardiovascular: regular rate, rhythm no murmur Gastrointestinal: normal bowel sounds non tender soft Back: normal inspection Extremities: normal range of motion non-tender normal inspection no pedal edema no calf tenderness normal capillary refill Neurologic/Psychiatric: insurance business analyst II-XII nml as tested no motor/sensory deficits alert normal mood/affect oriented x 3 other (MEMORY OF TONIGHT'S EVENTS SOMEWHAT IMPAIRED. HAS SOME SLIGHT EXPRESSIVE APHASIA, BUT SPEECH IS CLEAR) Motor/Sensory: no motor deficit no sensory deficit no pronator drift Skin: normal color warm/dry Progress/Results/Core Measures Results/Orders Lab Results Laboratory Tests Test 07/07/16 01:50 Range/Units Activated Partial Thromboplast Time 28 24-35 SEC Alanine Aminotransferase (ALT/SGPT) 90 H 0-55 U/L Albumin 3.6 3.2-4.5 G/DL Alkaline Phosphatase 136 40-136 U/L Anion Gap 9 5-14 MMOL/L Aspartate Amino Transf (AST/SGOT) 78 H 5-34 U/L BUN/Creatinine Ratio 24 Basophils # (Auto) 0.0 0.0-0.1 10^3/uL Basophils (%) (Auto) 0 0-10 % Blood Urea Nitrogen 27 H 7-18 MG/DL Calcium Level 9.0 8.5-10.1 MG/DL Carbon Dioxide Level 32 21-32 MMOL/L Chloride Level 99 98-107 MMOL/L Creatinine 1.14 0.60-1.30 MG/DL Eosinophils # (Auto) 0.1 0.0-0.3 10^3/uL Eosinophils (%) (Auto) 1 0-10 % Estimat Glomerular Filtration Rate 48 Glucose Level 115 H 70-105 MG/DL Hematocrit 34 L 35-52 % Hemoglobin 10.4 L 11.5-16.0 G/DL INR Comment 1.0 0.8-1.4 Lymphocytes # (Auto) 2.4 1.0-4.0 X 10^3 Lymphocytes (%) (Auto) 22 12-44 % Magnesium Level 1.8 1.8-2.4 MG/DL Mean Corpuscular Hemoglobin 27 25-34 PG Mean Corpuscular Hemoglobin Concent 31 L 32-36 G/DL Mean Corpuscular Volume 89 80-99 FL Mean Platelet Volume 10.1 7.4-10.4 FL Monocytes # (Auto) 0.9 0.0-1.0 X 10^3 Monocytes (%) (Auto) 8 0-12 % Myoglobin 40.0 10.0-92.0 NG/ML Neutrophils # (Auto) 7.9 H 1.8-7.8 X 10^3 Neutrophils (%) (Auto) 70 42-75 % Platelet Count 251 130-400 10^3/uL Potassium Level 4.3 3.6-5.0 MMOL/L Prothrombin Time 12.4 12.2-14.7 SEC Red Blood Count 3.83 L 4.35-5.85 10^6/uL Red Cell Distribution Width 14.1 10.0-14.5 % Sodium Level 140 135-145 MMOL/L Total Bilirubin 0.3 0.1-1.0 MG/DL Total Protein 6.1 L 6.4-8.2 G/DL Troponin I < 0.30 <0.30 NG/ML White Blood Count 11.3 H 4.3-11.0 10^3/uL My Orders Orders-MEGGAN CASTRO DO O2 (07/07/16 01:47) Ekg Tracing (07/07/16 01:47) Cbc With Automated Diff (07/07/16 01:47) Comprehensive Metabolic Panel (07/07/16 01:47) Protime With Inr (07/07/16 01:47) Partial Thromboplastin Time (07/07/16 01:47) Magnesium (07/07/16 01:47) Chest 1 View, Ap/Pa Only (07/07/16 01:47) Cardiac Profile 1 (07/07/16 01:47) Cardiac Profile 2 (07/07/16 07:47) Myoglobin Serum (07/07/16 01:47) Ct Head Wo (07/07/16 01:47) Monitor-Rhythm Ecg Trace Only (07/07/16 01:47) Vital Signs/I&O Vital Sign - Last 12Hours 07/07/16 07/07/16 01:46 01:58 Temp 99.4 Pulse 104 Resp 18 B/P 139/60 Pulse Ox 93 94 O2 Delivery Nasal Cannula Nasal Cannula O2 Flow Rate 3 3 Progress Note : Progress Note NO DETERIORATION IN PT'S CONDITION DURING ER STAY ECG Initial ECG Impression Time: 02:32 Initial ECG Rate: 95 Initial ECG Rhythm: Normal Sinus Initial ECG Comparisson: Unchanged Diagnostic Imaging Comments CXR--NO ACUTE PROCESS, PENDING RADIOLOGIST REVIEW CT HEAD--NO ACUTE PROCESS, PER RADIOLOGIST VIA PHONE AT [phone], VIA FAX AT [phone] AND [phone] Reviewed: Reviewed by Me, Discussed w/Radiologist Departure Communication Progress Notes 0230--SPOKE WITH DR. 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 Disposition: 09 ADMITTED INPATIENT Condition: Stable Decision to Admit Reason: Admit from ER (General) Decision to Admit/Date: Jul 07, 2016 Time/Decision to Admit Time: 02:30 Departure-Patient Inst. Referrals: ANDREA CHU MD (PCP/Family) Primary Care Physician MEGGAN CASTRO DO Jul 07, 2016 01:53
[2016-07-07 01:57] LABS: BASOPHILS % (AUTO) 0 % (0-10); EOSINOPHILS # (AUTO) 0.1 10^3/uL (0.0-0.3); EOSINOPHILS % (AUTO) 1 % (0-10); LYMPHOCYTES # (AUTO) 2.4 X 10^3 (1.0-4.0); LYMPHOCYTES % (AUTO) 22 % (12-44); MEAN CORPUSCULAR HEMOGLOBIN 27 PG (25-34); MEAN CORPUSCULAR HGB CONC 31 G/DL (32-36); MEAN CORPUSCULAR VOLUME 89 FL (80-99); MEAN PLATELET VOLUME 10.1 FL (7.4-10.4); MONOCYTES # (AUTO) 0.9 X 10^3 (0.0-1.0); MONOCYTES % (AUTO) 8 % (0-12); NEUTROPHILS # (AUTO) 7.9 X 10^3 (1.8-7.8); NEUTROPHILS % (AUTO) 70 % (42-75); PLATELET COUNT 251 10^3/uL (130-400); RED BLOOD COUNT 3.83 10^6/uL (4.35-5.85); RED CELL DISTRIBUTION WIDTH 14.1 % (10.0-14.5); WHITE BLOOD COUNT 11.3 10^3/uL (4.3-11.0)
[2016-07-07 02:03] LABS: PROTHROMBIN TIME PATIENT 12.4 SEC (12.2-14.7)
[2016-07-07 02:13] LABS: ALANINE AMINOTRANSFERASE 90 U/L (0-55); ALBUMIN 3.6 G/DL (3.2-4.5); ANION GAP 9 MMOL/L (5-14); ASPARTATE AMINO TRANSFERASE 78 U/L (5-34); BILIRUBIN,TOTAL 0.3 MG/DL (0.1-1.0); BLOOD UREA NITROGEN 27 MG/DL (7-18); BUN/CREATININE RATIO 24; CARBON DIOXIDE 32 MMOL/L (21-32); CHLORIDE 99 MMOL/L (98-107); CREATININE SERUM 1.14 MG/DL (0.60-1.30); GFR ESTIMATED 48; GLUCOSE 115 MG/DL (70-105); MAGNESIUM 1.8 MG/DL (1.8-2.4); POTASSIUM 4.3 MMOL/L (3.6-5.0); SODIUM 140 MMOL/L (135-145); TOTAL PROTEIN 6.1 G/DL (6.4-8.2)
[2016-07-07 04:41] LABS: BASOPHILS % (AUTO) 0 % (0-10); EOSINOPHILS # (AUTO) 0.1 10^3/uL (0.0-0.3); EOSINOPHILS % (AUTO) 1 % (0-10); LYMPHOCYTES # (AUTO) 2.1 X 10^3 (1.0-4.0); LYMPHOCYTES % (AUTO) 21 % (12-44); MEAN CORPUSCULAR HEMOGLOBIN 27 PG (25-34); MEAN CORPUSCULAR HGB CONC 30 G/DL (32-36); MEAN CORPUSCULAR VOLUME 90 FL (80-99); MONOCYTES # (AUTO) 0.8 X 10^3 (0.0-1.0); MONOCYTES % (AUTO) 8 % (0-12); NEUTROPHILS # (AUTO) 6.9 X 10^3 (1.8-7.8); NEUTROPHILS % (AUTO) 70 % (42-75); PLATELET COUNT 224 10^3/uL (130-400); RED BLOOD COUNT 3.77 10^6/uL (4.35-5.85); RED CELL DISTRIBUTION WIDTH 14.2 % (10.0-14.5); WHITE BLOOD COUNT 9.8 10^3/uL (4.3-11.0)
[2016-07-07 05:03] LABS: ALBUMIN 3.5 G/DL (3.2-4.5); BILIRUBIN,TOTAL 0.3 MG/DL (0.1-1.0); CALCIUM 8.9 MG/DL (8.5-10.1); CREATININE SERUM 1.12 MG/DL (0.60-1.30); MAGNESIUM 1.6 MG/DL (1.8-2.4); PHOSPHORUS 2.9 MG/DL (2.3-4.7); POTASSIUM 4.1 MMOL/L (3.6-5.0); TOTAL PROTEIN 5.9 G/DL (6.4-8.2)
--- NOTE | 2016-07-07 07:24 | Diagnostic Imaging Report ---
INDICATION: Shortness of breath. Portable chest 2:37 a.m. FINDINGS: Heart size and pulmonary vascularity are normal. There is a small patchy infiltrate at the left lung base just above the diaphragm that appears similar to the comparison study from 06/27/2016. Right lung is clear. IMPRESSION: Questionable patchy infiltrate in the left lung base. This appears similar to prior studies. Recommend further evaluation with CT of the chest. Dictated by: Dictated on workstation # [id number]
--- NOTE | 2016-07-07 07:30 | Diagnostic Imaging Report ---
PROCEDURE: CT head without contrast. TECHNIQUE: Multiple contiguous axial images were obtained through the brain without the use of intravenous contrast. INDICATION: Headache and confusion. FINDINGS: There is no intracranial hemorrhage, edema, or mass effect. The brain parenchyma and shearer-white matter differentiation are preserved with only minimal periventricular and deep white matter hypodensities compatible with chronic microvascular ischemic changes. There is no hydrocephalus. No extra-axial fluid collection is seen. The osseous structures, the paranasal sinuses and orbits visualized portions appear grossly unremarkable. IMPRESSION: No acute process. Dictated by: Dictated on workstation # [id number]
[2016-07-07] MEDS ORDERED: GADOBUTROL 7.5 MMOL/7.5 ML (GADAVIST) VIAL IV ONE (09:15)
[2016-07-07] MEDS ORDERED: ACETAMINOPHEN 325 MG TABLET/CAPLET (TYLENOL) PO PRN (10:45)
[2016-07-07] MEDS ORDERED: SIMV40TA4 PO (13:03)
--- NOTE | 2016-07-07 13:21 | Short Stay Summary ---
HPI History of Present Illness: 66yo woman iwth a history of TIA presented to ER with expressive aphasia and word finding difficulty. States that she was on the phone with her daughter but wasn't answering questions appropriately. THen texted her daughter a few non-sensical phrases. Had not taken an different meds or done anything out of the ordinary. Was still nonsensical to overnight nurses but this resolved through the night, and she was completely A&Ox3 this morning. She states that she does not remember writing the phrases on her ipad. She does remember not being able to find her words. Source: patient Exam Limitations: no limitations Date seen by provider: Jul 07, 2016 Attending Physician Lila Hammer MD PCP Andrea Chu MD Consult Date of Admission Jul 07, 2016 at 2:30 am Home Medications Home Medications Reviewed patient Home Medication Reconciliation Form Allergies Coded Allergies: levofloxacin (Verified Allergy, Severe, SEVERE SWELLING OF KNEES, 08/07/14) ibuprofen (Verified Allergy, Unknown, 06/22/16) zolpidem (Verified Allergy, Unknown, 06/22/16) Uncoded Allergies: HONEY BEES (Allergy, Severe, ANAPHYLAXIS, 08/07/14) KZY-Kgzbfq-Fqhsju Hx Patient Social History Alcohol Use: Occasionally Uses (IN PAST) Recreational Drug Use: No Smoking Status: Former Smoker (1 PPD, QUIT) Type Used: Cigarettes Recent Foreign Travel: No Contact w/other who traveled: No Recent Hopitalizations: No Recent Infectious Disease Expo: No Physical Abuse Screen: No Sexual Abuse: No Immunizations Up To Date Tetanus Booster (TDap): More than 5yrs Date of Pneumonia Vaccine: Mar 25, 2011 Date of Influenza Vaccine: Apr 03, 2016 Past Medical History Past medical history 1. COPD 2. Pulmonary embolus in the distant past related to OCP 3. Hypertension 4. Chronic anxiety and depression 5. Multiple admissions with pneumonia H-Flu 2-15, Strep Pneumonia 12-13 Past surgical history 1. Hysterectomy 2. Open right shoulder surgery 3. Appendectomy -Kido 4. Knee arthroscopy Family Medical History Family History: Arthritis 19 FATHER Asthma DAUGHTER Cancer 19 MOTHER G8 SISTER Cardiovascular disease 19 FATHER Colon cancer 19 MOTHER Coronary thrombosis DAUGHTER Diabetes mellitus DAUGHTER Drug abuse DAUGHTER Headache disorder DAUGHTER Hypercholesterolemia DAUGHTER Hypertension DAUGHTER Myocardial infarction 19 MOTHER Psychosocial problem DAUGHTER Respiratory disorder DAUGHTER Stroke Tuberculosis No Family History of: AIDS Abdominal aortic aneurysm Joon's disease Alcoholism Alzheimer's disease Aphasia Cancer of mouth Cataracts Completed stroke Congenital disease Congenital heart disease Congenital heart disease Cystic fibrosis Deafness or hearing loss Dementia Dysphasia Fibrocystic disease of breast Gastroenteritis Glaucoma Infertility Kidney disease Neoplasm Not obtainable due to adoption Osteoporosis Parkinson's disease Prostate cancer Seizure disorder Severe allergy Thyroid disease Visual disorder Review of Systems ([facility]) Constitutional: no symptoms reported All Other Systems Reviewed Negative Unless Noted: Yes Physical Exam-([facility]) Physical Exam Vital Signs VS - Last 72 Hours, by Label 07/07/16 07/07/16 07/07/16 07/07/16 01:46 01:58 03:17 03:19 Temp 99.4 97.8 Pulse 104 108 Resp 18 20 B/P 139/60 Pulse Ox 93 94 99 O2 Delivery Nasal Cannula Nasal Cannula O2 Flow Rate 3 3 07/07/16 07/07/16 07/07/16 07/07/16 03:20 03:30 03:45 03:56 Pulse 110 102 Resp 18 18 B/P 124/74 117/58 Pulse Ox 97 99 96 O2 Delivery Nasal Cannula Nasal Cannula Nasal Cannula O2 Flow Rate 2.00 2.00 2.00 07/07/16 07/07/16 07/07/16 07/07/16 03:56 04:00 04:00 04:00 Temp 98.8 Pulse 103 Resp 18 B/P 114/93 Pulse Ox 96 99 98 O2 Delivery Nasal Cannula Nasal Cannula Nasal Cannula O2 Flow Rate 3.00 2.00 2.00 07/07/16 07/07/16 07/07/16 07/07/16 04:15 04:30 04:45 05:00 Pulse 103 102 103 101 Resp 18 18 18 18 B/P 138/59 114/93 125/59 123/63 Pulse Ox 99 98 99 97 O2 Delivery Nasal Cannula Nasal Cannula Nasal Cannula Nasal Cannula O2 Flow Rate 2.00 2.00 2.00 2.00 07/07/16 07/07/16 07/07/16 07/07/16 05:15 05:30 05:45 07:00 Pulse 101 107 101 111 Resp 18 18 18 B/P 114/63 131/67 112/65 Pulse Ox 98 98 99 O2 Delivery Nasal Cannula Nasal Cannula Nasal Cannula O2 Flow Rate 2.00 2.00 2.00 07/07/16 07/07/16 07/07/16 07/07/16 07:45 07:49 10:20 11:00 Temp 98.5 Pulse 112 Resp 18 B/P 131/81 Pulse Ox 91 91 91 O2 Delivery Nasal Cannula Nasal Cannula Nasal Cannula Nasal Cannula O2 Flow Rate 2.00 3.00 2.00 2.00 07/07/16 07/07/16 12:00 12:45 Temp 97.9 Pulse 101 Resp 18 B/P 107/63 Pulse Ox 92 O2 Delivery Nasal Cannula Nasal Cannula O2 Flow Rate 2.00 2.00 Capillary Refill : Less Than 3 Seconds General Appearance: WD/WN no apparent distress HEENT: PERRL/EOMI normal ENT inspection pharynx normal Neck: non-tender full range of motion supple normal inspection Respiratory: lungs clear normal breath sounds no respiratory distress no accessory muscle use Cardiovascular: regular rate, rhythm no edema no gallop no JVD no murmur Gastrointestinal: normal bowel sounds non tender soft no organomegaly Back: normal inspection no CVA tenderness Extremities: normal range of motion non-tender normal inspection no pedal edema no calf tenderness normal capillary refill Neurologic/Psychiatric: intern architect II-XII nml as tested no motor/sensory deficits alert normal mood/affect oriented x 3 Skin: normal color warm/dry Short Stay Diagnosis Discharge Diagnosis-Short Stay Admission Diagnosis TRANSIENT ISCHEMIC ATTACK SEVERE COPD, CHRONIC, STABLE HTN Final Discharge Diagnosis SAME Conclusion Plan Mayra was admitted to hospital. She received an MRI and bilateral carotid duplexes. These both showed no need for intervention. She may need an outpatient echo, but I will leave that to her PCP. She is already on antihypertensives and has a statin. She is also on aspirin which is sufficient for secondary stroke prevention. Her LDL is above goal at present ,and she may benefit from a stronger statin. She will go home with her daugher for a few days to make sure she can take care of her ADLs though no neurological deficits were observed at discharge. Clinical Quality Measures DVT/VTE Risk/Contraindication: Risk Factor Score Per Nursin RFS Level Per Nursing on Admit: 3=High Stroke: Date of last known well: Jul 06, 2016 Copy Copies To 1: ANDREA CHU MD, JULIE A MD Jul 07, 2016 13:21
--- NOTE | 2016-07-07 13:21 | Discharge Instructions ---
Discharge [facility] Discharge Medications New, Converted or Re-Newed RX: Transmitted to Pharmacy New Medications: Simvastatin (Simvastatin) 40 Mg Tablet 40 MG PO HS #30 Ref 2 TAB Continued Medications: Acyclovir (Acyclovir) 200 Mg Capsule 200 MG PO TID PRN COLD SORES CAP Albuterol Sulfate (Ventolin Hfa) 18 Gm Hfa.aer.ad 2 PUFF IH Q6H PRN SHORTNESS OF BREATH Alprazolam (Alprazolam) 1 Mg Tablet 1 MG PO BID TAB Aspirin (Aspirin) 325 Mg Tablet 650 MG PO Q6H TAKES 2 (325 MG) TABLETS PRN FEVER TAB Diphenhydramine HCl (Benadryl) 25 Mg Capsule 50 MG PO DAILY TAKES 2 (25MG) CAPSULES CAP Fluticasone/Salmeterol (Advair 250-50 Diskus) 1 Each Blst.w.dev 1 PUFF IH BID INHALER Hydrocodone/Acetaminophen (Hydrocodon-Acetaminoph 7.5-325) 1 Each Tablet 1 TAB PO QID PRN PAIN TAB Losartan/Hydrochlorothiazide (Losartan-Hctz 100-25 mg Tab) 1 Each Tablet 1 TAB PO DAILY TAB Potassium Chloride (Potassium Chloride) 10 Meq Tablet.er 10 MEQ PO DAILY LAST FILLED 12/30/15 #30 TAB Prednisone (Prednisone) 10 Mg Tab 10 MG PO DAILY Take 4 Tabs x 3 Days Take 3 Tabs x 3 Days Take 2 Tabs x 3 days take 1 tab x 3 days take 1/2 tab x 4 days Stop #30 TAB Ranitidine HCl (Ranitidine HCl) 300 Mg Tablet 300 MG PO HS TAB Sertraline HCl (Sertraline HCl) 50 Mg Tablet 50 MG PO DAILY TAB Patient Instructions Goal/Follow Up Appt: jul 13 at 10:[address] Hutchinson Patient Instructions: PLEASE FOLLOW UP YOUR APPOINTMENT SCHEDULED. Return to The Hospital For: INCREASED CONFUSION, INABILITY TO MOVE AN EXTREMITY OR TALK Activity & Diet Discharge Diet: Low Fat/Low Cholesterol Activity as Tolerated: Yes Copy Copies To 1: BIA HUTCHINSON MD, JULIE A MD Jul 07, 2016 1:07 pm
[2016-07-07 13:27] LABS: TRIGLYCERIDES 173 MG/DL (<150)
[2016-07-07 13:28] LABS: CHOLESTEROL 211 MG/DL (< 200); DIRECT LDL 128 MG/DL (1-129); VLDL CHOLESTEROL 35 MG/DL (5-40)
--- NOTE | 2016-07-07 13:47 | Diagnostic Imaging Report ---
PROCEDURE: MR imaging of the brain with and without contrast. TECHNIQUE: Multiplanar, multisequence MR imaging of the brain was performed with and without contrast. INDICATION: CVA. Confusion. 7 mL of Gadavist is administered intravenously. FINDINGS: There is no diffusion restriction to suggest an acute infarct or other diffusion abnormality. There is periventricular and deep white matter T2 hyperintense signal abnormalities in somewhat symmetric distribution without significant mass effect or postcontrast enhancement. This is suggestive of chronic microvascular ischemic changes. There is no hydrocephalus. No extraaxial fluid collection is seen. The central vascular flow-voids appear preserved. The internal auditory canals and inner ear structures appear symmetric. The pituitary gland is normal in size. No hypothalamic or pineal region mass. There is minimal mucosal thickening in the ethmoid air cells and the maxillary sinuses. The frontal sinuses are hypoplastic. IMPRESSION: No acute infarct or enhancing mass. Dictated by: Dictated on workstation # [id number]
--- NOTE | 2016-07-07 14:19 | Diagnostic Imaging Report ---
PROCEDURE: US Carotid Duplex Bilateral. TECHNIQUE: Multiple real-time grayscale images were obtained over the carotid arteries in various projections bilaterally. Additional duplex Doppler and color Doppler images were also obtained. INDICATION: Speech difficulty. CVA. FINDINGS: The carotid arteries demonstrate mild calcified plaque along the carotid bifurcations bilaterally. There is color Doppler demonstrating patency of the common, internal and external carotid arteries on both sides. There is antegrade flow in the vertebral arteries seen bilaterally. Peak systolic velocities in the right ICA are 121, 156 and the 157 cm per second from proximal to distal and on the left 95, 136 and 180 cm per second from proximal to distal. ICA over CCA ratios are up to 1.2 on the right and up to 1.7 on the left. IMPRESSION: Slightly elevated velocities in the internal carotid arteries bilaterally with associated calcified plaque. Estimated underlying stenosis is in the range of 50-69% bilaterally. Dictated by: Dictated on workstation # [id number]
--- NOTE | 2016-07-10 11:42 | Physician Query-Final Dx ---
KSENIA WU 07/10/16 1142: Clinic Account Progress/Dx Physician Query: Please give diagnosis Date of Service Jul 07, 2016 at 01:44 Progress Note: Ksenia [phone] BIA HUTCHINSON MD 07/24/16 1758: Clinic Account Progress/Dx Physician Query: TRANSIENT ISCHEMIC ATTACK SEVERE COPD, CHRONIC, STABLE HTN DIAGNOSIS: Diagnosis TRANSIENT ISCHEMIC ATTACK SEVERE COPD, CHRONIC, STABLE HTN KSENIA WU Jul 10, 2016 11:42 BIA HUTCHINSON MD Jul 24, 2016 17:58
== END 2016-07-07 13:04 | disposition home or self-care (01) ==
LOC: EDUNIT# 01:41 → ER 01:44 → UNDOADMOB 02:30 → ICU 02:30
PROVIDERS: ADMIT Pediatrics; ATTEND Pediatrics
DX: G45.9 Transient cerebral ischemic attack, unspecified (principal); J44.9 Chronic obstructive pulmonary disease, unspecified; I10 Essential (primary) hypertension; Z87.891 Personal history of nicotine dependence; K21.9 Gastro-esophageal reflux disease without esophagitis; F41.9 Anxiety disorder, unspecified; F32.9 Major depressive disorder, single episode, unspecified
CPT/HCPCS: 36415; 70450; 70553; 71010; 80053; 80061; 83735; 83874; 84100; 84484; 85025; 85610; 85730; 93005; 93041; 93880; G0378

== ENCOUNTER 2017-05-28 09:08 | Inpatient (IN) | payer MEDICARE, MEDICAID ==
[~2017-05-28] VITALS: Ht 167.6 cm; Wt 80.7 kg
[~2017-05-28 09:08] MED LIST changes: -LOSA1TAB70 PO; +SIMV40TA4 PO
[2017-05-28] MEDS ORDERED: NS IV 1000 ML 1,000 ML IV ONE ×2 (09:10→09:34)
[2017-05-28] MEDS ORDERED: RT-ALBUTEROL SULF 2.5 MG/3 ML PRE-MIX VIAL INH STA (09:10)
--- OUTSIDE RECORDS SUMMARY | 2017-05-28 09:13 | XMS REPORT ---
Author Author ANDREA CHU [facility] eClinicalWorks Address Unknown Phone Unavailable Care Team Providers Care Supervisor Smoke [employer] Name Role Phone ANDREA CHU CP Unavailable Allergies No Known Allergies Problems Problem Type Condition Code Onset Dates Condition Status Problem Pain in joint, shoulder region 719.41 Active Problem Hypopotassemia 276.8 Active Problem Hypertension I10 Active Assessment Chronic obstructive pulmonary disease, unspecified J44.9 Active Assessment Back pain M54.9 Active Problem Abdominal pain, unspecified site 789.00 Active Problem 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 Medications Medication Code System Code Instructions Start Date End Date Status Dosage Alprazolam NDC [id number] 1 MG TAKE ONE TABLET BY MOUTH TWICE DAILY (MUST LAST 30 DAYS) acetaminophen-hydrocodone NDC 0 7.5-325 mg oral, 4 times a day September 10, 2014 1 tablet Results No Known Results Summary Purpose eClinicalWorks Submission
--- OUTSIDE RECORDS SUMMARY | 2017-05-28 09:14 | XMS REPORT ---
Author Author ANDREA CHU [facility] Address [address] [place] [address] Care Team Providers Care Primary Teaching Assistant Name Role Phone ANDREA CHU Unavailable PROBLEMS Type Condition ICD9-CM Code [id number] Code Onset Dates Condition Status SNOMED Code Problem Chronic obstructive pulmonary disease, unspecified COPD type J44.9 Active 27587748 Problem Perforated nasal septum J34.89 Active 14966508 Problem Abnormal LFTs R79.89 Active 012861031 Problem Hypertension I10 Active 87538999 Problem Arthritis M19.90 Active 5117239 Problem Hypokalemia E87.6 Active 44108514 Problem Essential hypertension I10 Active 90126213 Problem Chronic pain G89.29 Active 25237179 Problem Chronic kidney disease, unspecified stage N18.9 Active 833062496 Problem Transient cerebral ischemia, unspecified type G45.9 Active 741641237 Problem Anxiety F41.9 Active 65392864 ALLERGIES Substance Reaction Event Type Date Status Levaquin anaphylaxis Drug Allergy Jun, Active Ambien Unknown Drug Allergy Jun, Active SOCIAL HISTORY No smoking Hx information available PLAN OF CARE Activity Details Follow Up 3 Months Reason: VITAL SIGNS Height 64 in 2016-07-03 Weight 169 lbs 2016-07-03 Heart Rate 102 bpm 2016-07-03 Respiratory Rate 24 2016-07-03 Oximetry 90 % 2016-07-03 BMI 29.01 kg/m2 2016-07-03 Blood pressure systolic 128 mmHg 2016-07-03 Blood pressure diastolic 80 mmHg 2016-07-03 MEDICATIONS Medication Instructions Dosage Frequency Start Date End Date Duration Status Ranitidine HCl 300 MG TAKE ONE TABLET BY MOUTH AT BEDTIME 30 Active Alprazolam 1 MG Orally Twice a day 1 tablet 12h Active Benadryl 25 MG Orally PRN Active Oxygen nasal continuous 3L Active acetaminophen-hydrocodone 7.5-325 mg oral, must be seen for more refills 4 times a day 1 tablet 6h Aug, Active Sertraline HCl 50 mg Orally Once a day 1 tablet 24h Active Ventolin HFA 108 (90 Base) MCG/ACT Inhalation every 6 hrs 2 puffs as needed 6h 10 Jul, 2015 Active Aspirin 325 MG Orally PRN 2 tablets Active Advair Diskus 250-50 MCG/DOSE INHALE ONE PUFF BY MOUTH TWICE DAILY APPROXIMATELY 12 HOURS APART (RINSE MOUTH AND SPIT AFTER USE) 30 Active Losartan Potassium-HCTZ 100-25 MG 1 tablet Active Potassium Chloride Johanny ER 10 MEQ 1 tablet with food Active RESULTS No Results PROCEDURES Procedure Date Ordered Related Diagnosis Body Site MEASURE BLOOD OXYGEN LEVEL Jul 03, 2016 [facility] ESTABL[facility] PATIENT Jul 03, 2016 Office Visit, Est Pt., Level 2 Jul 03, 2016 IMMUNIZATIONS No Known Immunizations
--- OUTSIDE RECORDS SUMMARY | 2017-05-28 09:14 | XMS REPORT ---
Author Author ANDREA CHU [facility] eClinicalWorks Address Unknown Phone Unavailable Care Team Providers Care Demolition Worker Name Role Phone ANDREA CHU CP Unavailable Allergies, Adverse Reactions, Alerts Substance Reaction Event Type Levaquin anaphylaxis Drug Allergy Ambien Info Not Available Drug Allergy Problems Problem Type Condition Code Onset Dates Condition Status Assessment Abnormal LFTs R79.89 Active Assessment Perforated nasal septum J34.89 Active Problem Perforated nasal septum J34.89 Active Problem Chronic obstructive pulmonary disease, unspecified COPD type J44.9 Active Problem Abnormal LFTs R79.89 Active Problem Hypertension I10 Active Assessment Chronic obstructive pulmonary disease, unspecified COPD type J44.9 Active Problem Arthritis M19.90 Active Problem Chronic obstructive pulmonary disease, unspecified J44.9 Active Medications Medication Code System Code Instructions Start Date End Date Status Dosage acetaminophen-hydrocodone NDC 0 7.5-325 mg oral, must be seen for more refills 4 times a day September 10, 2014 1 tablet Oxygen NDC 0 nasal continuous 2.5L Incruse Ellipta [facility] [address]-29 62.5 MCG/INH Inhalation, to replace Spiriva Once a day Aug 05, 2015 1 puff Advair Diskus [facility] [id number] 250-50 MCG/DOSE INHALE ONE PUFF BY MOUTH TWICE DAILY APPROXIMATELY 12 HOURS APART (RINSE MOUTH AND SPIT AFTER USE) Alprazolam [facility] 09113171999 1 MG Orally, must be seen for more refills Twice a day 1 tablet Zovirax [facility] [address]-15 200 MG Orally Three times a day Apr 13, 2015 1 capsule Losartan Potassium-HCTZ [facility] 95431016647 100-25 MG TAKE ONE TABLET BY MOUTH DAILY Aspirin [facility] [address]-80 325 MG Orally Once a day 1 tablet Ranitidine HCl [facility] 22955565667 300 MG TAKE ONE TABLET BY MOUTH AT BEDTIME Nystatin [facility] [address]-31 383719 UNIT/ML Mouth/Throat Three times a day January 01, 2015 as directed Ventolin HFA [facility] [address]-56 108 (90 Base) MCG/ACT Inhalation every 4 hrs Aug 04, 2015 2 puffs as needed Potassium Chloride Johanny ER [facility] 96581421251 10 MEQ TAKE ONE TABLET BY MOUTH DAILY Sertraline HCl [facility] 03454754669 50 MG TAKE ONE TABLET BY MOUTH ONCE DAILY Procedures Procedure Coding System Code Date VENIPUNCT, ROUTINE* CPT-4 34687 Mar 27, 2016 [facility] VISIT ESTABLISHED PATIENT CPT-4 G0467 Mar 27, 2016 [facility] NOBLL Mar 27, 2016 Office Visit, Est Pt., Level 3 CPT-4 40227 Mar 27, 2016 Vital Signs Date/Time: Mar 27, 2016 Cardiac Monitoring Heart Rate 80 bpm Weight 167.9 lbs Height 64 in BMI 28.82 Index Blood Pressure Diastolic 80 mmHg Blood Pressure Systolic 138 mmHg Results Name Result Date Reference Range Unit Abnormality Flag ROUTINE VENIPUNCTURE CMP ----Sodium, Serum 139 [id number] 134-144 mmol/L ----BUN/Creatinine Ratio 14 [id number] 11-26 ----Chloride, Serum 92 [id number] 97-108 mmol/L L ----Potassium, Serum 3.8 30445670 3.5-5.2 mmol/L ----Calcium, Serum 9.2 [id number] 8.7-10.3 mg/dL ----Protein, Total, Serum 6.8 [id number] 6.0-8.5 g/dL ----Carbon Dioxide, Total 29 [id number] 18-29 mmol/L ----A/G Ratio 2.0 [id number] 1.1-2.5 ----eGFR If NonAfricn Am 48 [id number] >59 mL/min/1.73 L ----Bilirubin, Total 0.4 43299889 0.0-1.2 mg/dL ----eGFR If Africn Am 55 [id number] >59 mL/min/1.73 L ----BUN 17 [id number] 8-27 mg/dL ----Albumin, Serum 4.5 94221207 3.6-4.8 g/dL ----Globulin, Total 2.3 [id number] 1.5-4.5 g/dL ----Creatinine, Serum 1.19 [id number] 0.57-1.00 mg/dL H ----ALT (SGPT) 50 [id number] 0-32 IU/L H ----Glucose, Serum 88 [id number] 65-99 mg/dL ----Alkaline Phosphatase, S 133 [id number] 39-117 IU/L H ----AST (SGOT) 27 [id number] 0-40 IU/L Summary Purpose eClinicalWorks Submission
[2017-05-28] MEDS ORDERED: RT-ALBUTEROL/IPRATROPIUM 3 ML (DUONEB) VIAL INH ONE (09:15)
--- OUTSIDE RECORDS SUMMARY | 2017-05-28 09:15 | XMS REPORT ---
Author Author ANDREA CHU [facility] Address [address] [place] [address] Care Team Providers Care Foundry Worker General Name Role Phone ANDREA CHU Unavailable PROBLEMS Type Condition ICD9-CM Code [id number] Code Onset Dates Condition Status SNOMED Code Problem Chronic obstructive pulmonary disease, unspecified COPD type J44.9 Active 76570573 Problem Perforated nasal septum J34.89 Active 14322494 Problem Abnormal LFTs R79.89 Active 005517836 Problem Hypertension I10 Active 83988842 Problem Arthritis M19.90 Active 0453356 Problem Hypokalemia E87.6 Active 68231440 Problem Essential hypertension I10 Active 19086199 Problem Chronic pain G89.29 Active 06668957 Problem Chronic kidney disease, unspecified stage N18.9 Active 734498454 Problem Transient cerebral ischemia, unspecified type G45.9 Active 624061124 Problem Anxiety F41.9 Active 84997645 ALLERGIES Unknown Allergies SOCIAL HISTORY No smoking Hx information available PLAN OF CARE VITAL SIGNS MEDICATIONS Unknown Medications RESULTS No Results PROCEDURES No Known procedures IMMUNIZATIONS No Known Immunizations
--- OUTSIDE RECORDS SUMMARY | 2017-05-28 09:15 | XMS REPORT ---
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
--- OUTSIDE RECORDS SUMMARY | 2017-05-28 09:15 | XMS REPORT ---
Author Author ANDREA CHU [facility] eClinicalWorks Address Unknown Phone Unavailable Care Team Providers Care Financial Planning Adviser Name Role Phone ANDREA CHU CP Unavailable Allergies No Known Allergies Problems Problem Type Condition Code Onset Dates Condition Status Problem Arthritis M19.90 Active Problem Chronic obstructive pulmonary disease, unspecified J44.9 Active Problem Chronic obstructive pulmonary disease, unspecified COPD type J44.9 Active Problem Hypertension I10 Active Assessment Chronic pain G89.29 Active Medications Medication Code System Code Instructions Start Date End Date Status Dosage acetaminophen-hydrocodone NDC 0 7.5-325 mg oral, must be seen for more refills 4 times a day September 10, 2014 1 tablet Alprazolam NDC 77410547259 1 MG Orally, must be seen for more refills Twice a day 1 tablet Results No Known Results Summary Purpose eClinicalWorks Submission
--- OUTSIDE RECORDS SUMMARY | 2017-05-28 09:15 | XMS REPORT ---
Author Author ANDREA CHU Organization [facility] Address [address] [place] [address] Care Team Providers Care Zoning Assistant Name Role Phone ANDREA CHU Unavailable PROBLEMS Type Condition ICD9-CM Code [id number] Code Onset Dates Condition Status SNOMED Code Problem Chronic obstructive pulmonary disease, unspecified COPD type J44.9 Active 67074658 Problem Perforated nasal septum J34.89 Active 98453210 Problem Abnormal LFTs R79.89 Active 835675954 Problem Hypertension I10 Active 85715558 Problem Arthritis M19.90 Active 9114063 Problem Hypokalemia E87.6 Active 34005814 Problem Essential hypertension I10 Active 89101084 Problem Chronic pain G89.29 Active 58124552 Problem Chronic kidney disease, unspecified stage N18.9 Active 830771754 Problem Transient cerebral ischemia, unspecified type G45.9 Active 430034842 Problem Anxiety F41.9 Active 81036616 ALLERGIES No Information SOCIAL HISTORY Never Assessed PLAN OF CARE VITAL SIGNS MEDICATIONS Medication Instructions Dosage Frequency Start Date End Date Duration Status Hydrocodone-Acetaminophen 7.5-325 MG Orally every 6 hrs 1 tablet as needed 6h October, 28 days Active RESULTS No Results PROCEDURES No Known procedures IMMUNIZATIONS No Known Immunizations MEDICAL (GENERAL) HISTORY Type Description Date Medical History COPD Medical History hypertension Medical History Arthritis Medical History asthma Medical History headache Medical History backache Medical History allergies Medical History hip and knee pain Surgical History appendectomy 05/30/2013 Surgical History hysterectomy Surgical History section Surgical History orthopedic surgery-torn rotator cuff, scope knee Hospitalization History multiple admissions for respiratory issues Hospitalization History pneumonia 11/2014 Hospitalization History COPD exacerbation with hypoxia-[facility] 06/22/16
--- OUTSIDE RECORDS SUMMARY | 2017-05-28 09:15 | XMS REPORT ---
Author Author ANDREA CHU [facility] eClinicalWorks Address Unknown Phone Unavailable Care Team Providers Care Finance Associate Name Role Phone ANDREA CHU Unavailable Allergies, Adverse Reactions, Alerts Substance Reaction Event Type Levaquin anaphylaxis Drug Allergy Ambien Info Not Available Drug Allergy Problems Problem Type Condition Code Onset Dates Condition Status Problem Arthritis M19.90 Active Problem Hypertension I10 Active Problem Chronic obstructive pulmonary disease, unspecified COPD type J44.9 Active Assessment Arthritis M19.90 Active Assessment Hypertension I10 Active Assessment Chronic obstructive pulmonary disease, unspecified COPD type J44.9 Active Medications Medication Code System Code Instructions Start Date End Date Status Dosage Sertraline HCl [facility] 41190583502 50 MG TAKE ONE TABLET BY MOUTH ONCE DAILY Oxygen ND 0 nasal continuous 2.5L Zovirax [facility] [address]-22 200 MG Orally Three times a day Apr 13, 2015 1 capsule Advair Diskus [facility] 53251203112 250-50 MCG/DOSE INHALE ONE PUFF BY MOUTH TWICE DAILY APPROXIMATELY 12 HOURS APART (RINSE MOUTH AND SPIT AFTER USE) Nystatin [facility] [address]-93 030292 UNIT/ML Mouth/Throat Three times a day January 01, 2015 as directed Aspirin [facility] [address]-68 325 MG Orally Once a day 1 tablet Potassium Chloride Johanny ER [facility] 62805664453 10 MEQ TAKE ONE TABLET BY MOUTH DAILY Losartan Potassium-HCTZ [facility] 24108500424 100-25 MG TAKE ONE TABLET BY MOUTH DAILY Ranitidine HCl [facility] 74032851858 300 MG TAKE ONE TABLET BY MOUTH AT BEDTIME acetaminophen-hydrocodone ND 0 7.5-325 mg oral, must be seen for more refills 4 times a day September 10, 2014 1 tablet Incruse Ellipta [facility] [address]-70 62.5 MCG/INH Inhalation, to replace Spiriva Once a day Aug 05, 2015 1 puff Ventolin HFA [facility] [address]-58 108 (90 Base) MCG/ACT Inhalation every 4 hrs Aug 04, 2015 2 puffs as needed Alprazolam [facility] 63731718915 1 MG Orally, must be seen for more refills Twice a day 1 tablet Procedures Procedure Coding System Code Date [facility] VISIT ESTABLISHED PATIENT CPT-4 G0467 December 31, 2015 Office Visit, Est Pt., Level 3 CPT-4 79914 December 31, 2015 [facility] CPT-4 NOBLL December 31, 2015 VENIPUNCT, ROUTINE* CPT-4 71121 December 31, 2015 Vital Signs Date/Time: December 31, 2015 Cardiac Monitoring Heart Rate 90 bpm Weight 165.4 lbs Height 64 in Blood Pressure Diastolic 70 mmHg Blood Pressure Systolic 130 mmHg Results No Known Results Summary Purpose eClinicalWorks Submission
--- OUTSIDE RECORDS SUMMARY | 2017-05-28 09:15 | XMS REPORT ---
Author Author ANDREA CHU Organization [facility] Address [address] [place] [address] Care Team Providers Care Bag Patcher Name Role Phone ANDREA CHU Unavailable PROBLEMS Type Condition ICD9-CM Code [id number] Code Onset Dates Condition Status SNOMED Code Problem Chronic obstructive pulmonary disease, unspecified COPD type J44.9 Active 95030017 Problem Perforated nasal septum J34.89 Active 17978141 Problem Abnormal LFTs R79.89 Active 518241207 Problem Hypertension I10 Active 21275911 Problem Arthritis M19.90 Active 5520766 Problem Hypokalemia E87.6 Active 85055054 Problem Essential hypertension I10 Active 58474380 Problem Chronic pain G89.29 Active 34385255 Problem Chronic kidney disease, unspecified stage N18.9 Active 212317667 Problem Transient cerebral ischemia, unspecified type G45.9 Active 410254990 Problem Anxiety F41.9 Active 95546742 ALLERGIES No Information SOCIAL HISTORY Never Assessed PLAN OF CARE VITAL SIGNS MEDICATIONS Medication Instructions Dosage Frequency Start Date End Date Duration Status Ventolin HFA 108 (90 Base) MCG/ACT Inhalation every 4 hrs 2 puffs as needed for SOB or wheeze 4h 10 Jul, 2015 30 days Active RESULTS No Results PROCEDURES No [...] pneumonia 11/2014 Hospitalization History COPD exacerbation with hypoxia-[facility] 06/22/16
--- OUTSIDE RECORDS SUMMARY | 2017-05-28 09:15 | XMS REPORT ---
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
--- OUTSIDE RECORDS SUMMARY | 2017-05-28 09:15 | XMS REPORT ---
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
--- OUTSIDE RECORDS SUMMARY | 2017-05-28 09:15 | XMS REPORT ---
Author Author JASE KERN [facility] eClinicalWorks Address Unknown Phone Unavailable Care Team Providers Care Director Graphics Name Role Phone JASE KERN CP Unavailable Allergies No Known Allergies Problems Problem Type Condition Code Onset Dates Condition Status Assessment Essential hypertension I10 Active Problem Arthritis M19.90 Active Problem Chronic obstructive pulmonary disease, unspecified J44.9 Active Problem Chronic obstructive pulmonary disease, unspecified COPD type J44.9 Active Assessment Chronic obstructive pulmonary disease, unspecified J44.9 Active Assessment Palpitations R00.2 Active Problem Hypertension I10 Active Assessment Hx-TIA (transient ischemic attack) Z86.73 Active Medications Medication Code System Code Instructions Start Date End Date Status Dosage Incruse Ellipta [facility] [address]-25 62.5 MCG/INH Inhalation, to replace Spiriva Once a day Aug 05, 2015 1 puff Aspirin [facility] [address]-80 325 MG Orally Once a day 1 tablet Alprazolam [facility] 93000039041 1 MG Orally, must be seen for more refills Twice a day 1 tablet Sertraline HCl [facility] 70515595891 50 MG TAKE ONE TABLET BY MOUTH ONCE DAILY Zovirax [facility] [address]-01 200 MG Orally Three times a day Apr 13, 2015 1 capsule Potassium Chloride Johanny ER [facility] 71755427079 10 MEQ TAKE ONE TABLET BY MOUTH DAILY Advair Diskus [facility] 23295647412 250-50 MCG/DOSE INHALE ONE PUFF BY MOUTH TWICE DAILY APPROXIMATELY 12 HOURS APART (RINSE MOUTH AND SPIT AFTER USE) Ranitidine HCl [facility] 04079750695 300 MG TAKE ONE TABLET BY MOUTH AT BEDTIME acetaminophen-hydrocodone ND 0 7.5-325 mg oral, must be seen for more refills 4 times a day September 10, 2014 1 tablet Nystatin [facility] [address]-25 275244 UNIT/ML Mouth/Throat Three times a day January 01, 2015 as directed Ventolin HFA [facility] [address]-98 108 (90 Base) MCG/ACT Inhalation every 4 hrs Aug 04, 2015 2 puffs as needed Oxygen NDC 0 nasal continuous 2.5L Losartan Potassium-HCTZ ND 89536608360 100-25 MG TAKE ONE TABLET BY MOUTH DAILY Procedures Procedure Coding System Code Date [facility] VISIT ESTABLISHED PATIENT CPT-4 G0467 January 05, 2016 Office Visit, Est Pt., Level 4 CPT-4 35518 January 05, 2016 MEASURE BLOOD OXYGEN LEVEL CPT-4 66180 January 05, 2016 Vital Signs Date/Time: January 05, 2016 Cardiac Monitoring Heart Rate 86 bpm Weight 165 lbs Height 64 in BMI 28.32 Index Oximetry 89 % Blood Pressure Diastolic 76 mmHg Blood Pressure Systolic 134 mmHg Results No Known Results Summary Purpose eClinicalWorks Submission
--- OUTSIDE RECORDS SUMMARY | 2017-05-28 09:15 | XMS REPORT ---
Author Author TAWANA GORDON [facility] eClinicalWorks Address Unknown Phone Unavailable Care Team Providers Care Mule Operator Name Role Phone TAWANA GORDON CP Unavailable Allergies, Adverse Reactions, Alerts Substance Reaction Event Type Levaquin anaphylaxis Drug Allergy Zolpidem 10 Mg Tablet FOUL TASTE IN MOUTH Non Drug Allergy Problems Problem Type Condition Code Onset Dates Condition Status Problem Pain in joint, shoulder region 719.41 Active Problem Hypopotassemia 276.8 Active Problem Hypertension I10 Active Assessment Hypertension I10 Active Assessment Hx-TIA (transient ischemic attack) Z86.73 Active Problem Abdominal pain, unspecified site 789.00 Active Problem 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 Medications Medication Code System Code Instructions Start Date End Date Status Dosage ProAir HFA [facility] [address]-53 108 (90 Base) MCG/ACT Inhalation every 4 hrs 1 puff as needed Ranitidine HCl [facility] 49871255862 300 MG TAKE ONE TABLET BY MOUTH AT BEDTIME Aspirin [facility] [address]-63 325 MG Orally Once a day 1 tablet acetaminophen-hydrocodone ND 0 7.5-325 mg oral, 4 times a day September 10, 2014 1 tablet Hydrochlorothiazide [facility] [address]-40 12.5 MG Orally Once a day Jun 04, 2015 1 tablet Alprazolam [facility] [address]-74 1 MG Orally, each fill must last 30 days Twice a day 1 tablet Spiriva HandiHaler [facility] 26751580345 18 MCG INHALE CONTENTS OF ONE CAPSULE BY MOUTH ONCE DAILY (TWO INHALATIONS PER ONE CAPSULE) Sertraline HCl [facility] 00740492752 50 MG TAKE ONE TABLET BY MOUTH ONCE DAILY Claritin [facility] [address]-34 10 MG Orally Once a day 1 tablet Procedures Procedure Coding System Code Date [facility] VISIT ESTABLISHED PATIENT CPT-4 G0467 Jun 04, 2015 Office Visit, Est Pt., Level 3 CPT-4 33084 Jun 04, 2015 ELECTROCARDIOGRAM, TRACING CPT-4 34885 Jun 04, 2015 Vital Signs Date/Time: Jun 04, 2015 Temperature 97.1 F Weight 158.7 lbs Height 64 in BMI 27.24 Index Blood Pressure Diastolic 80 mmHg Blood Pressure Systolic 164 mmHg Cardiac Monitoring Heart Rate 88 bpm Results Name Result Date Reference Range Unit Abnormality Flag EKG, TRACING (IN-HOUSE) Summary Purpose eClinicalWorks Submission
--- OUTSIDE RECORDS SUMMARY | 2017-05-28 09:15 | XMS REPORT ---
Author Author ANDREA CHU [facility] Address [address] [place] [address] Care Team Providers Care Multiple Resaw Operator Name Role Phone ANDREA CHU Unavailable PROBLEMS Type Condition ICD9-CM Code [id number] Code Onset Dates Condition Status SNOMED Code Problem Chronic obstructive pulmonary disease, unspecified COPD type J44.9 Active 32365097 Problem Perforated nasal septum J34.89 Active 93662628 Problem Abnormal LFTs R79.89 Active 666404796 Problem Hypertension I10 Active 61350262 Problem Arthritis M19.90 Active 0795077 Problem Hypokalemia E87.6 Active 69687039 Problem Essential hypertension I10 Active 78537213 Problem Chronic pain G89.29 Active 12699050 Problem Chronic kidney disease, unspecified stage N18.9 Active 145652134 Problem Transient cerebral ischemia, unspecified type G45.9 Active 669195025 Problem Anxiety F41.9 Active 99826106 ALLERGIES Unknown Allergies SOCIAL HISTORY No smoking Hx information available PLAN OF CARE VITAL SIGNS MEDICATIONS Medication Instructions Dosage Frequency Start Date End Date Duration Status Alprazolam 1 MG Orally Twice a day 1 tablet 12h Active acetaminophen-hydrocodone 7.5-325 mg oral, 4 times a day 1 tablet 6h Aug Active Hydrocodone-Acetaminophen 7.5-325 MG Orally every 6 hrs 1 tablet as needed 6h Jul, Active RESULTS No Results PROCEDURES No Known procedures IMMUNIZATIONS No Known Immunizations
--- OUTSIDE RECORDS SUMMARY | 2017-05-28 09:15 | XMS REPORT ---
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
--- OUTSIDE RECORDS SUMMARY | 2017-05-28 09:15 | XMS REPORT ---
Author Author ANDREA CHU [facility] eClinicalWorks Address Unknown Phone Unavailable Care Team Providers Care Head Baggage Porter Name Role Phone ANDREA CHU CP Unavailable [...]
--- OUTSIDE RECORDS SUMMARY | 2017-05-28 09:16 | XMS REPORT ---
Author Author ANDREA CHU [facility] eClinicalWorks Address Unknown Phone Unavailable Care Team Providers Care Mill Work Name Role Phone ANDREA CHU CP Unavailable Allergies No Known Allergies Problems Problem Type Condition Code Onset Dates Condition Status Problem Arthritis M19.90 Active Problem Chronic obstructive pulmonary disease, unspecified J44.9 Active Problem Chronic obstructive pulmonary disease, unspecified COPD type J44.9 Active Problem Hypertension I10 Active Medications Medication Code System Code Instructions Start Date End Date Status Dosage acetaminophen-hydrocodone NDC 0 7.5-325 mg oral, must be seen for more refills 4 times a day September 10, 2014 1 tablet Alprazolam NDC [id number] 1 MG Orally, must be seen for more refills Twice a day 1 tablet Results No Known Results Summary Purpose eClinicalWorks Submission
--- OUTSIDE RECORDS SUMMARY | 2017-05-28 09:16 | XMS REPORT ---
Author Author GUNJAN LUGO Organization [facility] Address [address] [place] [address] Care Team Providers Care Access Assoc Name Role Phone GUNJAN LUGO Unavailable PROBLEMS Type Condition ICD9-CM Code [id number] Code Onset Dates Condition Status SNOMED Code Problem Chronic obstructive pulmonary disease, unspecified COPD type J44.9 Active 85680373 Problem Abnormal LFTs R79.89 Active 114835807 Problem Perforated nasal septum J34.89 Active 97487250 Problem Hypertension I10 Active 52235686 Problem Arthritis M19.90 Active 7246291 Problem Transient cerebral ischemia, unspecified type G45.9 Active 344983755 Problem Essential hypertension I10 Active 75060308 Problem Anxiety F41.9 Active 63134074 Problem Chronic kidney disease, unspecified stage N18.9 Active 407358154 Problem Hypokalemia E87.6 Active 95779264 Problem Chronic pain G89.29 Active 05005737 ALLERGIES Substance Reaction Event Type Date Status Levaquin anaphylaxis Drug Allergy May, Active Ambien Unknown Drug Allergy May, Active SOCIAL HISTORY No smoking Hx information available PLAN OF CARE Activity Details Follow Up pt sent to ER via ambulance Reason: VITAL SIGNS Height 64 in 2016-06-22 Weight 169.4 lbs 2016-06-22 Temperature 98.2 degrees Fahrenheit 2016-06-22 Heart Rate 78 bpm 2016-06-22 Respiratory Rate 24 2016-06-22 Oximetry 80 % 2016-06-22 BMI 29.07 kg/m2 2016-06-22 Blood pressure systolic 136 mmHg 2016-06-22 Blood pressure diastolic 84 mmHg 2016-06-22 MEDICATIONS Medication Instructions Dosage Frequency Start Date End Date Duration Status Incruse Ellipta 62.5 MCG/INH Inhalation, to replace Spiriva Once a day 1 puff 24h Jul, Active Alprazolam 1 MG Orally Twice a day 1 tablet 12h Active Sertraline HCl 50 MG TAKE ONE TABLET BY MOUTH ONCE DAILY 30 Active Potassium Chloride 10 mEq 10 mEq by Oral route 1 time per day Apr, Active Zovirax 200 MG Orally Three times a day 1 capsule 8h 20 Mar, 2015 10 day(s) Active Losartan Potassium-HCTZ 100-25 MG TAKE ONE TABLET BY MOUTH DAILY 90 Active acetaminophen-hydrocodone 7.5-325 mg oral, must be seen for more refills 4 times a day 1 tablet 6h Aug, Active Ranitidine HCl 300 MG TAKE ONE TABLET BY MOUTH AT BEDTIME 30 Active Aspirin 325 MG Orally Once a day 1 tablet 24h Active Potassium Chloride Johanny ER 10 MEQ TAKE ONE TABLET BY MOUTH DAILY 30 Active Advair Diskus 250-50 MCG/DOSE INHALE ONE PUFF BY MOUTH TWICE DAILY APPROXIMATELY 12 HOURS APART (RINSE MOUTH AND SPIT AFTER USE) 30 Active Ventolin HFA 108 (90 Base) MCG/ACT Inhalation every 4 hrs 2 puffs as needed 4h 10 Jul, 2015 Active Oxygen nasal continuous 2.5L Active RESULTS No Results PROCEDURES Procedure Date Ordered Related Diagnosis Body Site NEBULIZER TREATMENT 2016-06-22 N/A ALBUTEROL UNIT DOSE FORM INHALED 2016-06-22 N/A Office Visit, Est Pt., Level 3 Jun 22, 2016 MEASURE BLOOD OXYGEN LEVEL Jun 22, 2016 NEB/MDI RX INITIAL Jun 22, 2016 [facility] VISIT ESTABLISHED PATIENT Jun 22, 2016 ALBUTEROL INHAL UNIT DOSE 1 MG Jun 22, 2016 IMMUNIZATIONS No Known Immunizations
--- OUTSIDE RECORDS SUMMARY | 2017-05-28 09:16 | XMS REPORT ---
Author Author ANDREA CHU Organization [facility] Address [address] [place] [address] Care Team Providers Care Insurance Account Executive Name Role Phone ANDREA CHU Unavailable PROBLEMS Type Condition ICD9-CM Code [id number] Code Onset Dates Condition Status SNOMED Code Problem Chronic obstructive pulmonary disease, unspecified COPD type J44.9 Active 59720933 Problem Perforated nasal septum J34.89 Active 29554542 Problem Abnormal LFTs R79.89 Active 578648249 Problem Hypertension I10 Active 99255502 Problem Arthritis M19.90 Active 3979382 Problem Hypokalemia E87.6 Active 10947423 Problem Essential hypertension I10 Active 02407202 Problem Chronic pain G89.29 Active 41033600 Problem Chronic kidney disease, unspecified stage N18.9 Active 112593098 Problem Transient cerebral ischemia, unspecified type G45.9 Active 809738442 Problem Anxiety F41.9 Active 48440446 ALLERGIES No Information SOCIAL HISTORY Never Assessed PLAN OF CARE VITAL SIGNS MEDICATIONS Medication Instructions Dosage Frequency Start Date End Date Duration Status Alprazolam 1 MG Orally Twice a day 1 tablet 12h 28 days Active Hydrocodone-Acetaminophen 7.5-325 MG Orally every 6 hrs 1 tablet as needed 6h Aug, Aug, 28 days Active RESULTS No Results PROCEDURES [...] pneumonia 11/2014 Hospitalization History COPD exacerbation with hypoxia-[facility] 06/22/16
--- OUTSIDE RECORDS SUMMARY | 2017-05-28 09:17 | XMS REPORT ---
Author Author BIA HUTCHINSON Organization [facility] Address [address] [place] [address] Care Team Providers Care Associate Account Manager Name Role Phone BIA HUTCHINSON Unavailable PROBLEMS Type Condition ICD9-CM Code [id number] Code Onset Dates Condition Status SNOMED Code Problem Chronic obstructive pulmonary disease, unspecified COPD type J44.9 Active 05600684 Problem Perforated nasal septum J34.89 Active 05681093 Problem Abnormal LFTs R79.89 Active 912076934 Problem Hypertension I10 Active 22323995 Problem Arthritis M19.90 Active 6675474 Problem Hypokalemia E87.6 Active 46889295 Problem Essential hypertension I10 Active 76737519 Problem Chronic pain G89.29 Active 00157685 Problem Chronic kidney disease, unspecified stage N18.9 Active 368307475 Problem Transient cerebral ischemia, unspecified type G45.9 Active 987706316 Problem Anxiety F41.9 Active 42642787 ALLERGIES Substance Reaction Event Type Date Status Levaquin anaphylaxis Drug Allergy Jun, Active Ambien Unknown Drug Allergy Jun, Active SOCIAL HISTORY No smoking Hx information available PLAN OF CARE Activity Details Follow Up 6 Weeks Reason: VITAL SIGNS Height 64 in 2016-07-13 Weight 170.2 lbs 2016-07-13 Temperature 98.3 degrees Fahrenheit 2016-07-13 Heart Rate 92 bpm 2016-07-13 Respiratory Rate 20 2016-07-13 Oximetry 93 % 2016-07-13 BMI 29.21 kg/m2 2016-07-13 Blood pressure systolic 88 mmHg 2016-07-13 Blood pressure diastolic 54 mmHg 2016-07-13 MEDICATIONS Medication Instructions Dosage Frequency Start Date End Date Duration Status Alprazolam 1 MG Orally Twice a day 1 tablet 12h Active acetaminophen-hydrocodone 7.5-325 mg oral, must be seen for more refills 4 times a day 1 tablet 6h Aug, Active Ventolin HFA 108 (90 Base) MCG/ACT Inhalation every 6 hrs 2 puffs as needed 6h 10 Jul, 2015 Active Simvastatin 40 MG Orally Once a day 1 tablet in the evening 24h Active Aspirin 325 MG Orally PRN 2 tablets Active Losartan Potassium-HCTZ 100-25 MG Orally Once a day 0.5 tablet 24h Active Sertraline HCl 50 mg Orally Once a day 1 tablet 24h Active Advair Diskus 250-50 MCG/DOSE INHALE ONE PUFF BY MOUTH TWICE DAILY APPROXIMATELY 12 HOURS APART (RINSE MOUTH AND SPIT AFTER USE) 30 Active Oxygen nasal continuous 3L Active Benadryl 25 MG Orally PRN Active Ranitidine HCl 300 MG TAKE ONE TABLET BY MOUTH AT BEDTIME 30 Active RESULTS No Results PROCEDURES Procedure Date Ordered Related Diagnosis Body Site MEASURE BLOOD OXYGEN LEVEL Jul 13, 2016 [facility] VISIT ESTABLISHED PATIENT Jul 13, 2016 Office Visit, Est Pt., Level 4 Jul 13, 2016 IMMUNIZATIONS No Known Immunizations
--- OUTSIDE RECORDS SUMMARY | 2017-05-28 09:17 | XMS REPORT ---
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
--- OUTSIDE RECORDS SUMMARY | 2017-05-28 09:17 | XMS REPORT ---
Author ANDREA Hickey [facility] eClinicalWorks Address Unknown Phone Unavailable Care Team Providers Care Field Marketing Director Name Role Phone ANDREA CHU CP Unavailable Allergies, Adverse Reactions, Alerts Substance Reaction Event Type Levaquin anaphylaxis Drug Allergy Zolpidem 10 Mg Tablet FOUL TASTE IN MOUTH Non Drug Allergy Problems Problem Type Condition Code Onset Dates Condition Status Problem Hypopotassemia 276.8 Active Problem Abdominal pain, unspecified site 789.00 Active Problem Pain in joint, shoulder region 719.41 Active Assessment Encounter for immunization Z23 Active Assessment Back pain M54.9 Active Problem 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 Assessment COPD (chronic obstructive pulmonary disease) J44.9 Active Medications Medication Code System Code Instructions Start Date End Date Status Dosage Claritin [facility] [address]-95 10 MG Orally Once a day 1 tablet Spiriva HandiHaler [facility] [id number] 18 MCG INHALE CONTENTS OF ONE CAPSULE BY MOUTH ONCE DAILY (TWO INHALATIONS PER ONE CAPSULE) Alprazolam [facility] [address]-98 1 MG Orally, each fill must last 30 days Twice a day 1 tablet Sertraline HCl [facility] 17887111804 50 MG TAKE ONE TABLET BY MOUTH ONCE DAILY Ranitidine HCl [facility] 28824448554 300 MG TAKE ONE TABLET BY MOUTH AT BEDTIME acetaminophen-hydrocodone ND 0 7.5-325 mg oral, must be seen for more refills 4 times a day September 10, 2014 1 tablet ProAir HFA [facility] [address]-67 108 (90 Base) MCG/ACT Inhalation every 4 hrs 1 puff as needed Procedures Procedure Coding System Code Date PCV 13 CPT-4 03357 Apr 13, 2015 SINGLE IMMUNIZATION ADMIN CPT-4 91053 Apr 13, 2015 FLUARIX QUAD (3 & UP)-GSK-2014 CPT-4 36605 Apr 13, 2015 [facility] VISIT ESTABLISHED PATIENT CPT-4 G0467 Apr 13, 2015 IMMUNIZATION ADMIN, EACH ADD (please include units) CPT-4 80145 Apr 13, 2015 Office Visit, Est Pt., Level 3 CPT-4 23346 Apr 13, 2015 Vital Signs Date/Time: Apr 13, 2015 Temperature 97.9 F Weight 162.4 lbs Height 64 in BMI 27.87 Index Blood Pressure Diastolic 98 mmHg Blood Pressure Systolic 164 mmHg Cardiac Monitoring Heart Rate 84 bpm Results No Known Results Immunizations Vaccine Administration Date FLUARIX QUAD (3 & UP)-GSK-2014Apr 13, 2015 PCV 13 Apr 13, 2015 Summary Purpose eClinicalWorks Submission
--- OUTSIDE RECORDS SUMMARY | 2017-05-28 09:17 | XMS REPORT ---
Author Author ANDREA CHU [facility] Address [address] [place] [address] Care Team Providers Care Health Sanitarian Name Role Phone ANDREA CHU Unavailable PROBLEMS Type Condition ICD9-CM Code [id number] Code Onset Dates Condition Status SNOMED Code Problem Chronic obstructive pulmonary disease, unspecified COPD type J44.9 Active 61890753 Problem Perforated nasal septum J34.89 Active 31604837 Problem Abnormal LFTs R79.89 Active 600404375 Problem Hypertension I10 Active 01654836 Problem Arthritis M19.90 Active 1008702 Problem Hypokalemia E87.6 Active 99892271 Problem Essential hypertension I10 Active 62217321 Problem Chronic pain G89.29 Active 43009247 Problem Chronic kidney disease, unspecified stage N18.9 Active 364483227 Problem Transient cerebral ischemia, unspecified type G45.9 Active 349024412 Problem Anxiety F41.9 Active 66957308 ALLERGIES Substance Reaction Event Type Date Status Levaquin anaphylaxis Drug Allergy October, Active Ambien Unknown Drug Allergy October, Active SOCIAL HISTORY Never Assessed PLAN OF CARE Activity Details Follow Up 3 Months Reason: VITAL SIGNS Height 64 in 2016-10-27 Weight 171.5 lbs 2016-10-27 Temperature 98.4 degrees Fahrenheit 2016-10-27 Heart Rate 100 bpm 2016-10-27 Respiratory Rate 22 2016-10-27 Oximetry 92 % 2016-10-27 BMI 29.43 kg/m2 2016-10-27 Blood pressure systolic 108 mmHg 2016-10-27 Blood pressure diastolic 68 mmHg 2016-10-27 MEDICATIONS Medication Instructions Dosage Frequency Start Date End Date Duration Status Sertraline HCl 50 mg Orally Once a day 1 tablet 24h 30 Active Benadryl 25 MG Orally PRN Active Oxygen nasal continuous 3L Active Alprazolam 1 MG Orally Twice a day 1 tablet 12h 28 days Active Ranitidine HCl 300 MG TAKE ONE TABLET BY MOUTH AT BEDTIME 30 Active Aspirin 325 MG Orally PRN 2 tablets Active Losartan Potassium-HCTZ 100-25 MG Orally Once a day 0.5 tablet 24h Active Advair Diskus 250-50 MCG/DOSE INHALE ONE PUFF BY MOUTH TWICE DAILY APPROXIMATELY 12 HOURS APART (RINSE MOUTH AND SPIT AFTER USE) 30 Active Ventolin HFA 108 (90 Base) MCG/ACT Inhalation every 6 hrs 2 puffs as needed 6h 10 Jul, 2015 Active Hydrocodone-Acetaminophen 7.5-325 MG Orally every 6 hrs 1 tablet as needed 6h Sep, October, 28 days Active Potassium Chloride Johanny ER 10 MEQ TAKE ONE TABLET BY MOUTH DAILY 30 Active RESULTS Name Result Date Reference Range [facility] 2016-10-27 Glucose, Serum 117 65-99 BUN 8 8-27 Creatinine, Serum 0.95 0.57-1.00 eGFR If NonAfricn Am 63 >59 eGFR If Africn Am 73 >59 BUN/Creatinine Ratio 8 12-28 Sodium, Serum 140 134-144 Potassium, Serum 3.7 3.5-5.2 Chloride, Serum 92 96-106 Carbon Dioxide, Total 33 18-29 Calcium, Serum 8.8 8.7-10.3 PROCEDURES Procedure Date Ordered Result Body Site MEASURE BLOOD OXYGEN LEVEL October 27, 2016 [facility] October [facility], 2016 VENIPUNCT, ROUTINE* October 27, 2016 THER/PROPH/DIAG INJ, SC/IM October 27, 2016 DEPO MEDROL 80 MG/ML October 27, 2016 [facility] VISIT ESTABLISHED PATIENT October 27, 2016 IMMUNIZATIONS Vaccine Route Administration Date Status DEPO MEDROL 80 MG/ML IM Intramuscular October 27, 2016 Administered MEDICAL (GENERAL) HISTORY Type Description Date Medical [...] pneumonia 11/2014 Hospitalization History COPD exacerbation with hypoxia-[facility] 06/22/16
--- OUTSIDE RECORDS SUMMARY | 2017-05-28 09:17 | XMS REPORT ---
Author Author ANDREA CHU [facility] eClinicalWorks Address Unknown Phone Unavailable Care Team Providers Care Talent Rep Name Role Phone ANDREA CHU CP Unavailable [...]
--- OUTSIDE RECORDS SUMMARY | 2017-05-28 09:17 | XMS REPORT ---
Author Author ANDREA CHU [facility] Address [address] [place] [address] Care Team Providers Care Painter Maintenance Name Role Phone ANDREA CHU Unavailable PROBLEMS Type Condition ICD9-CM Code [id number] Code Onset Dates Condition Status SNOMED Code Problem Chronic obstructive pulmonary disease, unspecified COPD type J44.9 Active 78098255 Problem Perforated nasal septum J34.89 Active 10620227 Problem Abnormal LFTs R79.89 Active 604559283 Problem Hypertension I10 Active 56504958 Problem Arthritis M19.90 Active 8756019 Problem Hypokalemia E87.6 Active 20195784 Problem Essential hypertension I10 Active 09152398 Problem Chronic pain G89.29 Active 88002607 Problem Chronic kidney disease, unspecified stage N18.9 Active 805283214 Problem Transient cerebral ischemia, unspecified type G45.9 Active 771133082 Problem Anxiety F41.9 Active 53362574 ALLERGIES Unknown Allergies SOCIAL HISTORY No smoking Hx information available PLAN OF CARE VITAL SIGNS MEDICATIONS Medication Instructions Dosage Frequency Start Date End Date Duration Status Fluconazole 150 MG 1 tablet Jun, Active RESULTS No Results PROCEDURES No Known procedures IMMUNIZATIONS No Known Immunizations
--- OUTSIDE RECORDS SUMMARY | 2017-05-28 09:17 | XMS REPORT ---
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
--- OUTSIDE RECORDS SUMMARY | 2017-05-28 09:17 | XMS REPORT ---
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 [address]-78 1 MG Orally, each fill must last 30 days Twice a day 1 tablet Results No Known Results Summary Purpose eClinicalWorks Submission
--- OUTSIDE RECORDS SUMMARY | 2017-05-28 09:17 | XMS REPORT ---
Author Author SUZY ESPINOZA Organization [facility] Address [address] [place] [address] Care Team Providers Care Linen Keeper Name Role Phone SUZY ESPINOZA Unavailable PROBLEMS Type Condition ICD9-CM Code [id number] Code Onset Dates Condition Status SNOMED Code Problem Chronic obstructive pulmonary disease, unspecified COPD type J44.9 Active 46511861 Problem Perforated nasal septum J34.89 Active 33544041 Problem Abnormal LFTs R79.89 Active 869806806 Problem Hypertension I10 Active 86075549 Problem Arthritis M19.90 Active 3894988 Problem Hypokalemia E87.6 Active 45068685 Problem Essential hypertension I10 Active 87099668 Problem Chronic pain G89.29 Active 60728710 Problem Chronic kidney disease, unspecified stage N18.9 Active 131841828 Problem Transient cerebral ischemia, unspecified type G45.9 Active 991493988 Problem Anxiety F41.9 Active 80597083 ALLERGIES Unknown Allergies SOCIAL HISTORY No smoking Hx information available PLAN OF CARE VITAL SIGNS MEDICATIONS Medication Instructions Dosage Frequency Start Date End Date Duration Status Losartan Potassium-HCTZ 100-25 MG 1 tablet Active Oxygen nasal continuous 3L Active Aspirin 325 MG Orally PRN 2 tablets Active Potassium Chloride Johanny ER 10 MEQ 1 tablet with food Active acetaminophen-hydrocodone 7.5-325 mg oral, must be seen for more refills 4 times a day 1 tablet 6h Aug, Active Benadryl 25 MG Orally PRN Active Sertraline HCl 50 mg Orally Once a day 1 tablet 24h Active PredniSONE 10 MG Orally Once a day 1 tablet 24h Active Advair Diskus 250-50 MCG/DOSE INHALE ONE PUFF BY MOUTH TWICE DAILY APPROXIMATELY 12 HOURS APART (RINSE MOUTH AND SPIT AFTER USE) 30 Active Ranitidine HCl 300 MG TAKE ONE TABLET BY MOUTH AT BEDTIME 30 Active Zovirax 200 mg Orally Three times a day as needed 1 capsule Mar, Active Alprazolam 1 MG Orally Twice a day 1 tablet 12h Active Ventolin HFA 108 (90 Base) MCG/ACT Inhalation every 6 hrs 2 puffs as needed 6h 10 Jul, 2015 Active RESULTS No Results PROCEDURES No Known procedures IMMUNIZATIONS No Known Immunizations
--- OUTSIDE RECORDS SUMMARY | 2017-05-28 09:17 | XMS REPORT ---
Author Author ANDREA CHU [facility] eClinicalWorks Address Unknown Phone Unavailable Care Team Providers Care Radio Broadcaster Name Role Phone ANDREA CHU CP Unavailable Allergies No Known Allergies Problems Problem Type Condition Code Onset Dates Condition Status Problem Abnormal LFTs R79.89 Active Problem Perforated nasal septum J34.89 Active Problem Chronic kidney disease, unspecified stage N18.9 Active Problem Chronic obstructive pulmonary disease, unspecified J44.9 Active Problem Hypertension I10 Active Problem Chronic obstructive pulmonary disease, unspecified COPD type J44.9 Active Problem Arthritis M19.90 Active Medications Medication Code System Code Instructions Start Date End Date Status Dosage Alprazolam NDC 51432581796 1 MG Orally, must be seen for more refills Twice a day 1 tablet acetaminophen-hydrocodone NDC 0 7.5-325 mg oral, must be seen for more refills 4 times a day September 10, 2014 1 tablet Results No Known Results Summary Purpose eClinicalWorks Submission
--- OUTSIDE RECORDS SUMMARY | 2017-05-28 09:17 | XMS REPORT ---
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
--- OUTSIDE RECORDS SUMMARY | 2017-05-28 09:17 | XMS REPORT ---
Author Author ANDREA CHU [facility] Address [address] [place] [address] Care Team Providers Care Certifier Name Role Phone ANDREA CHU Unavailable PROBLEMS Type Condition ICD9-CM Code UYH54-ON Code Onset Dates Condition Status SNOMED Code Problem Abnormal LFTs R79.89 Active 621473437 Problem Perforated nasal septum J34.89 Active 11229385 Problem Chronic obstructive pulmonary disease, unspecified J44.9 Active 44281970 Problem Hypertension I10 Active 81879810 Problem Chronic obstructive pulmonary disease, unspecified COPD type J44.9 Active 22799514 Problem Arthritis M19.90 Active 9033438 ALLERGIES Unknown Allergies SOCIAL HISTORY No smoking Hx information available PLAN OF CARE VITAL SIGNS MEDICATIONS Medication Instructions Dosage Frequency Start Date End Date Duration Status Alprazolam 1 MG Orally, must be seen for more refills Twice a day 1 tablet 12h 30 Active acetaminophen-hydrocodone 7.5-325 mg oral, must be seen for more refills 4 times a day 1 tablet 6h Aug, Active RESULTS No Results PROCEDURES No Known procedures IMMUNIZATIONS No Known Immunizations
--- OUTSIDE RECORDS SUMMARY | 2017-05-28 09:17 | XMS REPORT ---
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
--- OUTSIDE RECORDS SUMMARY | 2017-05-28 09:17 | XMS REPORT ---
Author Author ANDREA CHU [facility] eClinicalWorks Address Unknown Phone Unavailable Care Team Providers Care Cartridge Filler Name Role Phone ANDREA CHU CP Unavailable [...]
--- OUTSIDE RECORDS SUMMARY | 2017-05-28 09:18 | XMS REPORT ---
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 Active 52833081 Problem Abnormal LFTs R79.89 Active 798041846 Problem Hypertension I10 Active 80822835 Problem Arthritis M19.90 Active 7762625 Problem Hypokalemia E87.6 Active 37845703 Problem Essential hypertension I10 Active 18402561 Problem Chronic pain G89.29 Active 08273793 Problem Chronic kidney disease, unspecified stage N18.9 Active 245763211 Problem Transient cerebral ischemia, unspecified type G45.9 Active 674491464 Problem Anxiety F41.9 Active 31899834 ALLERGIES Unknown Allergies SOCIAL HISTORY No smoking Hx information available PLAN OF CARE VITAL SIGNS MEDICATIONS Medication Instructions Dosage Frequency Start Date End Date Duration Status Hydrocodone-Acetaminophen 7.5-325 MG Orally every 6 hrs 1 tablet as needed 6h Jun, Active Alprazolam 1 MG Orally Twice a day 1 tablet 12h Active RESULTS No Results PROCEDURES No Known procedures IMMUNIZATIONS No Known Immunizations
--- OUTSIDE RECORDS SUMMARY | 2017-05-28 09:18 | XMS REPORT ---
Author Author ANDREA CHU [facility] eClinicalWorks Address Unknown Phone Unavailable Care Team Providers Care Licensed Pharmacist Name Role Phone ANDREA CHU CP Unavailable [...]
[2017-05-28 09:28] LABS: BASOPHILS % (AUTO) 0 % (0-10); EOSINOPHILS # (AUTO) 0.2 10^3/uL (0.0-0.3); EOSINOPHILS % (AUTO) 1 % (0-10); LYMPHOCYTES # (AUTO) 1.9 X 10^3 (1.0-4.0); LYMPHOCYTES % (AUTO) 8 % (12-44); MEAN CORPUSCULAR HEMOGLOBIN 26 PG (25-34); MEAN CORPUSCULAR HGB CONC 30 G/DL (32-36); MEAN CORPUSCULAR VOLUME 85 FL (80-99); MEAN PLATELET VOLUME 9.9 FL (7.4-10.4); MONOCYTES # (AUTO) 1.3 X 10^3 (0.0-1.0); MONOCYTES % (AUTO) 5 % (0-12); NEUTROPHILS # (AUTO) 20.1 X 10^3 (1.8-7.8); NEUTROPHILS % (AUTO) 86 % (42-75); PLATELET COUNT 264 10^3/uL (130-400); RED BLOOD COUNT 4.62 10^6/uL (4.35-5.85); RED CELL DISTRIBUTION WIDTH 13.9 % (10.0-14.5); WHITE BLOOD COUNT 23.5 10^3/uL (4.3-11.0)
[2017-05-28] MEDS ORDERED: KETOROLAC 30 MG/ML VIAL IVP ONE (09:30)
--- NOTE | 2017-05-28 09:30 | ED General ---
General Stated Complaint: SOB Source of Information: Patient, Family (daughter) Exam Limitations: No Limitations History of Present Illness Time Seen by Provider: 09:10 Initial Comments Patient presents to ER by private conveyance with her daughter with a chief complaint that yesterday evening she started feeling headache, chills, feverish and short of breath a little more than usual. She has COPD and is on 3 L of oxygen typically at home. She says that her grandson who she is around all the time recently had influenza B about 2 weeks ago. She has had her flu shot as well as pneumococcal shots up-to-date. She has no dysuria, nausea, chest pain, abdominal pain or history of coronary artery disease. She has not taken any Tylenol or Profen yet. She describes her headache as moderate to severe frontal , constant. Patient says she has Advair which she takes usually 1-2 times a day. Recently she has been using her Ventolin inhaler about 3 times a day last couple days. She quit smoking in 2008. Allergies and Home Medications Allergies Coded Allergies: levofloxacin (Verified Allergy, Severe, SEVERE SWELLING OF KNEES, 05/28/17) zolpidem (Verified Allergy, Unknown, 05/28/17) Uncoded Allergies: HONEY BEES (Allergy, Severe, ANAPHYLAXIS, 08/07/14) Home Medications Albuterol Sulfate 18 Gm Hfa.aer.ad, 2 PUFF INH Q6H PRN for SHORTNESS OF BREATH, (Reported) Alprazolam 1 Mg Tablet, 1 MG PO BID, (Reported) Calcium Carbonate 300 Mg Tab.chew, 300 MG PO QID PRN for HEARTBURN, (Reported) Diphenhydramine HCl 25 Mg Capsule, 50 MG PO DAILY, (Reported) TAKES 2 (25MG) CAPSULES Fluticasone/Salmeterol 1 Each Blst.w.dev, 1 PUFF IH BID, (Reported) Hydrocodone/Acetaminophen 1 Each Tablet, 1 TAB PO Q6H PRN for PAIN-MODERATE, ( Reported) Losartan/Hydrochlorothiazide 1 Each Tablet, 0.5 TAB PO DAILY, (Reported) Potassium Chloride 10 Meq Tablet.er, 10 MEQ PO DAILY PRN for CRAMPS, (Reported) LAST FILLED #30 10-05-16 Sertraline HCl 50 Mg Tablet, 50 MG PO DAILY, (Reported) Constitutional: chills, diaphoresis, fever, malaise EENTM: No ear discharge, No hearing loss, No ear pain Respiratory: cough (chronic), phlegm, short of breath, wheezing Cardiovascular: No chest pain, No Hx of Intervention, No palpitations, No syncope, No vascular heart diseas Gastrointestinal: No abdominal pain, No constipation, No diarrhea, No nausea, No vomiting Genitourinary: No discharge, No dysuria Musculoskeletal: No back pain, No joint pain Skin: No pruritus, No rash Psychiatric/Neurological: Headache, Denies Numbness, Denies Paresthesia Past Kizbnav-Ujtgom-Tdfezp Hx Patient Social History Alcohol Use: Denies Use Recreational Drug Use: No Smoking Status: Former Smoker Type Used: Cigarettes Former Smoker, Quit: Jun 27, 2008 Recent Hopitalizations: No Immunizations Up To Date Tetanus Booster (TDap): More than 5yrs PED Vaccines UTD: No Date of Pneumonia Vaccine: Mar 25, 2011 Date of Influenza Vaccine: Apr 03, 2016 Seasonal Allergies Seasonal Allergies: Yes Surgeries History of Surgeries: Yes (L SHOULDER, KNEE SURGERIES -SCOPE, CATARACT, T/A, APPY ) Surgeries: Appendectomy, Section, Eye Surgery, Hysterectomy, Orthopedic Respiratory History of Respiratory Disorde: Yes (2L/NC) Respiratory Disorders: Pneumonia, Pulmonary Embolism, COPD Currently Using CPAP: No Currently Using BIPAP: No Cardiovascular History of Cardiac Disorders: Yes Cardiac Disorders: Hypertension Neurological History of Neurological Disord: Yes (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, TIA ) Neurological Disorders: TIA Reproductive System Hx Reproductive Disorders: No Sexually Transmitted Disease: No HIV/AIDS: No Female Reproductive Disorders: Denies Genitourinary History of Genitourinary Disor: Yes Genitourinary Disorders: UTI-Chronic Gastrointestinal History of Gastrointestinal Di: Yes Gastrointestinal Disorders: Gastroesophageal Reflux Musculoskeletal History of Musculoskeletal Dis: No Musculoskeletal Disorders: Arthritis Endocrine History of Endocrine Disorders: No HEENT HEENT Disorders: Cataract Loss of Vision: Right Hearing Impairment: Denies Cancer History of Cancer: Yes ( hysterectomy, ) Cancer: Cervical Psychosocial History of Psychiatric Problem: Yes Behavioral Health Disorders: Anxiety, Depression Integumentary History of Skin or Integumenta: No Blood Transfusions History of Blood Disorders: No Adverse Reaction to a Blood Tr: No Family Medical History Family Medial History: Arthritis 19 FATHER Asthma DAUGHTER Cancer (brother of throat cancer) 19 MOTHER G8 SISTER Cardiovascular disease 19 FATHER Colon cancer 19 MOTHER Coronary thrombosis DAUGHTER Diabetes mellitus DAUGHTER Drug abuse DAUGHTER Headache disorder DAUGHTER Hypercholesterolemia DAUGHTER Hypertension DAUGHTER Myocardial infarction 19 MOTHER Psychosocial problem DAUGHTER Respiratory disorder DAUGHTER Stroke (father had stroke) Tuberculosis No Family History of: AIDS Abdominal aortic aneurysm Joon's disease Alcoholism Alzheimer's disease Aphasia Cancer of mouth Cataracts Completed stroke Congenital disease Congenital heart disease Congenital heart disease (mother of copd and CHF) Cystic fibrosis Deafness or hearing loss Dementia Dysphasia Fibrocystic disease of breast Gastroenteritis Glaucoma Infertility Kidney disease Neoplasm Not obtainable due to adoption Osteoporosis Parkinson's disease Prostate cancer Seizure disorder Severe allergy Thyroid disease Visual disorder Physical Exam-Suspected Sepsis Physical Exam Vital Signs Vital Sign - Last 12Hours 05/28/17 05/28/17 09:08 09:36 Temp 103.3 Pulse 126 Resp 25 B/P (MAP) 178/79 (112) Pulse Ox 78 O2 Delivery Nasal Cannula O2 Flow Rate 5.00 Capillary Refill : General Appearance: Moderate Distress, Obese Eyes: Bilateral Eye Normal Inspection, Bilateral Eye PERRL, Bilateral Eye EOMI HEENT: PERRL/EOMI, TMs Normal, Pharynx Normal Neck: Full Range of Motion, Normal Inspection, Non Tender, Supple Respiratory: Chest Non Tender, Accessory Muscle Use, Crackles (right base), Decreased Breath Sounds, Respiratory Distress (moderate), Wheezing Cardiovascular: Regular Rate, Rhythm, No Edema, Normal Peripheral Pulses Gastrointestinal: Normal Bowel Sounds, Non Tender, Soft Extremity: Normal Capillary Refill, No Calf Tenderness, No Pedal Edema Neurologic/Psychiatric: Alert, Oriented x3, Normal Mood/Affect, senior systems programmer II-XII Norm as Tested Skin: normal color, warm/dry Lymphatic: No Adenopathy Focused Exam Evaluation Sepsis Stage: Sepsis Possible Source: Pulmonary Lactate Level Laboratory Tests 05/28/17 09:15: Lactic Acid Level 1.58 Time of Focused Exam: 10:45 Respiratory: Chest Non Tender, No Accessory Muscle Use, Wheezing Cardiovascular: Regular Rate, Rhythm, No Edema, Normal Peripheral Pulses Capillary Refill: Less Than 3 Seconds Peripheral Pulses: 2+ Radial Pulses (R), 2+ Radial Pulses (L) Skin: normal color, warm/dry Lactic Acid Level Progress/Results/Core Measures Suspected Sepsis SIRS Temperature: Pulse: Respiratory Rate: Laboratory Tests 05/28/17 09:15: White Blood Count 23.5H Blood Pressure / Mean: Laboratory Tests 05/28/17 09:15: Lactic Acid Level 1.58 Laboratory Tests 05/28/17 09:15: Creatinine 0.90, INR Comment 0.9, Platelet Count 264, Total Bilirubin 0.5 Results/Orders Lab Results Laboratory Tests Test 05/28/17 09:15 05/28/17 09:20 05/28/17 09:41 05/28/17 10:05 Range/Units White Blood Count 23.5 H 4.3-11.0 10^3/uL Red Blood Count 4.62 4.35-5.85 10^6/uL Hemoglobin 11.8 11.5-16.0 G/DL Hematocrit 39 35-52 % Mean Corpuscular Volume 85 80-99 FL Mean Corpuscular Hemoglobin 26 25-34 PG Mean Corpuscular Hemoglobin Concent 30 L 32-36 G/DL Red Cell Distribution Width 13.9 10.0-14.5 % Platelet Count 264 130-400 10^3/uL Mean Platelet Volume 9.9 7.4-10.4 FL Neutrophils (%) (Auto) 86 H 42-75 % Lymphocytes (%) (Auto) 8 L 12-44 % Monocytes (%) (Auto) 5 0-12 % Eosinophils (%) (Auto) 1 0-10 % Basophils (%) (Auto) 0 0-10 % Neutrophils # (Auto) 20.1 H 1.8-7.8 X 10^3 Lymphocytes # (Auto) 1.9 1.0-4.0 X 10^3 Monocytes # (Auto) 1.3 H 0.0-1.0 X 10^3 Eosinophils # (Auto) 0.2 0.0-0.3 10^3/uL Basophils # (Auto) 0.0 0.0-0.1 10^3/uL Neutrophils % (Manual) 90 % Lymphocytes % (Manual) 7 % Monocytes % (Manual) 3 % Eosinophils % (Manual) 0 % Basophils % (Manual) 0 % Band Neutrophils 0 % Blood Morphology Comment NORMAL Prothrombin Time 11.7 L 12.2-14.7 SEC INR Comment 0.9 0.8-1.4 Activated Partial Thromboplast Time 27 24-35 SEC Sodium Level 142 135-145 MMOL/L Potassium Level 3.3 L 3.6-5.0 MMOL/L Chloride Level 96 L 98-107 MMOL/L Carbon Dioxide Level 37 H 21-32 MMOL/L Anion Gap 9 5-14 MMOL/L Blood Urea Nitrogen 13 7-18 MG/DL Creatinine 0.90 0.60-1.30 MG/DL Estimat Glomerular Filtration Rate > 60 BUN/Creatinine Ratio 14 Glucose Level 130 H 70-105 MG/DL Lactic Acid Level 1.58 0.50-2.00 MMOL/L Calcium Level 8.8 8.5-10.1 MG/DL Total Bilirubin 0.5 0.1-1.0 MG/DL Aspartate Amino Transf (AST/SGOT) 30 5-34 U/L Alanine Aminotransferase (ALT/SGPT) 38 0-55 U/L Alkaline Phosphatase 135 40-136 U/L B-Type Natriuretic Peptide 27.2 <100.0 PG/ML Total Protein 7.4 6.4-8.2 GM/DL Albumin 4.0 3.2-4.5 GM/DL Group A Streptococcus Screen NEGATIVE NEGATIVE Blood Gas Puncture Site R RAD Blood Gas Patient Temperature 103.0 Arterial Blood pH 7.38 7.37-7.43 Arterial Blood Partial Pressure CO2 64 H 35-45 MMHG Arterial Blood Partial Pressure O2 102 H 79-93 MMHG Arterial Blood HCO3 36 H 23-27 MMOL/L Arterial Blood Total CO2 37.4 H 21.0-31.0 MMOL/L Arterial Blood Oxygen Saturation 98 94-100 % Arterial Blood Base Excess 10.6 H -2.5-2.5 MMOL/L Lv Test YES-POS Blood Gas Ventilator Setting NO Blood Gas Inspired Oxygen 5 L Urine Color YELLOW Urine Clarity CLEAR Urine pH 7 5-9 Urine Specific [place] 1.010 L 1.016-1.022 Urine Protein 1+ H NEGATIVE Urine Glucose (UA) NEGATIVE NEGATIVE Urine Ketones NEGATIVE NEGATIVE Urine Nitrite NEGATIVE NEGATIVE Urine Bilirubin NEGATIVE NEGATIVE Urine Urobilinogen 1 NORMAL MG/DL Urine Leukocyte Esterase NEGATIVE NEGATIVE Urine RBC (Auto) 3+ H NEGATIVE Urine RBC 5-10 H /HPF Urine WBC NONE /HPF Urine Squamous Epithelial Cells NONE /HPF Urine Crystals NONE /LPF Urine Bacteria NEGATIVE /HPF Urine Casts NONE /LPF Urine Mucus NEGATIVE /LPF Urine Culture Indicated NO Micro Results Microbiology 05/28/17 Influenza Types A,B Antigen (ADRIAN) - Final, Complete My Orders Orders - RAJNI BLANCO Arterial Blood Gas (05/28/17 09:10) BNP (05/28/17 09:10) Rapid Strep A Screen (05/28/17 09:10) Influenza A And B Antigens (05/28/17 09:10) Chest Pa/Lat (2 View) (05/28/17 09:10) Albuterol Pre-Mix Nebs (Rt) (Proventil (05/28/17 09:10) Albuterol/Ipra Inhalation Soln (Duoneb I (05/28/17 09:15) Saline Lock/Iv-Start (05/28/17 09:10) Ns Iv 1000 Ml (Sodium Chloride 0.9%) (05/28/17 09:10) Cbc With Automated Diff (05/28/17 09:10) Comprehensive Metabolic Panel (05/28/17 09:10) Lactic Acid Analyzer (05/28/17 09:10) Blood Culture (05/28/17 09:10) Ua Culture If Indicated (05/28/17 09:10) Protime With Inr (05/28/17 09:10) Partial Thromboplastin Time (05/28/17 09:10) O2 (05/28/17 09:10) Saline Lock/Iv-Start (05/28/17 09:10) Vital Signs Adult Sepsis Patie Q1H (05/28/17 09:10) Remove Rings In Anticipation O (05/28/17 09:10) Ketorolac Injection (Toradol Injection) (05/28/17 09:30) Manual Differential (05/28/17 09:15) Ns Iv 1000 Ml (Sodium Chloride 0.9%) (05/28/17 09:34) Ceftriaxone Injection (Rocephin Injectio (05/28/17 09:45) Crane Cath Insertion (05/28/17 10:05) Potassium Cl 10meq/50ml Ivpb (Kcl 10 Meq (05/28/17 10:15) Albuterol Pre-Mix Nebs (Rt) (Proventil (05/28/17 10:21) Methylprednisolone Sod Succ (Solu-Medrol (05/28/17 11:00) Medications Given in ED Current Medications Medications Dose Ordered Sig/Yannick Route Start Time Stop Time Status Last Admin Dose Admin Albuterol/ Ipratropium 3 ml ONCE ONCE INH 05/28/17 09:15 05/28/17 09:16 DC 05/28/17 09:36 3 ML Ceftriaxone Sodium 1000 mg/ Sodium Chloride 50 ml @ 100 mls/hr ONCE ONCE IV 05/28/17 09:45 05/28/17 10:14 DC 05/28/17 09:44 100 MLS/HR Ketorolac Tromethamine 15 mg ONCE ONCE IVP 05/28/17 09:30 05/28/17 09:31 DC 05/28/17 09:25 15 MG Potassium Chloride 50 ml @ 50 mls/hr ONCE ONCE IV 05/28/17 10:15 05/28/17 11:14 DC 05/28/17 10:36 50 MLS/HR Sodium Chloride 1,000 ml @ 0 mls/hr Q0M ONCE IV 05/28/17 09:10 05/28/17 09:14 DC 05/28/17 09:25 1,000 MLS/HR Sodium Chloride 1,000 ml @ 0 mls/hr Q0M ONCE IV 05/28/17 09:34 05/28/17 09:35 DC 05/28/17 09:50 0 MLS/HR Vital Signs/I&O Vital Sign - Last 12Hours 05/28/17 05/28/17 05/28/17 05/28/17 09:08 09:36 11:10 13:50 Temp 103.3 Pulse 126 Resp 25 B/P (MAP) 178/79 (112) Pulse Ox 78 96 100 96 O2 Delivery Nasal Cannula Nasal Cannula Nasal Cannula OxyMask O2 Flow Rate 5.00 5.00 6.00 05/28/17 05/28/17 05/28/17 13:50 15:53 16:00 Temp 96.6 Pulse 115 108 Resp 18 B/P (MAP) 119/58 (78) Pulse Ox 96 95 94 O2 Delivery OxyMask Nasal Cannula O2 Flow Rate 6.00 6.00 Capillary Refill : Progress Note #1: Time: 09:32 Progress Note Patient presented on home O2 at 3 L/m nasal cannula with sat of 78%. We switched her over to a oxygen mask keeping her in the upper 80s low 90s. We'll obtain an ABG, beta adrenergics and ipratropium, we'll treat her fever and headache with ketorolac. We'll give her a couple liters of fluid. 20 mL/kg would be 1500 cc. She's not had any recent hospitalization or antibiotics so we' ll start with Rocephin. Progress Note #2: Time: 10:08 Progress Note Fully catheter placed. ABG shows compensated respiratory acidosis probably chronic. PO2 is okay on the nonrebreather. Otherwise ventilating okay. Patient states her breathing is much better and her headache is improved. She still having quite a bit of wheezing throughout her lung leal so we'll give her another 5 mg of albuterol. Progress Note #3: Time: 10:49 Progress Note Modest red blood cells seen in the UA are probably due to the trauma of Crane catheter insertion. Diagnostic Imaging Diagonstic Imaging: Xray Plain Films/CT/US/NM/MRI: chest (2v) Comments NAME: TANO P[facility] REC#: [id number] PT STATUS: REG ER : 1950 PHYSICIAN: RAJNI BLANCO MD ADMIT DATE: 05/28/17/ER Draft Date of Exam:05/28/17 CHEST PA/LAT (2 VIEW) EXAMINATION: PA and lateral views of the chest. INDICATION: Shortness of breath. 07/07/2016. FINDINGS: The lungs demonstrate mild interstitial thickening, which appears chronic. There is minimal density in the left lung base similar to prior exams likely related to pericardial fat-pad. The heart size is normal. No effusion or pneumothorax. The mediastinum and simone appear unremarkable. IMPRESSION: No acute process. Dictated on workstation # [id number] Dict: 05/28/17 1055 Trans: 05/28/17 1104 [facility] [id number] Interpreted by: JAMEEL GOMEZ MD Electronically signed by: Reviewed: Reviewed by Me Departure Communication (Admissions) Time/Spoke to Admitting Phy: 10:52 Communication Gualt: Discussed case lab imaging findings. She is okay with initiating site Medrol. She is okay with antibiotics choice. Okay to go to the floor. Impression Impression: Primary Impression: Pneumonia Additional Impressions: COPD exacerbation Sepsis Qualified Codes: A41.9 - Sepsis, unspecified organism Hypokalemia Chronic respiratory acidosis Disposition: ADMITTED INPATIENT Condition: Improved Admissions Decision to Admit Reason: Admit from ER (General) Decision to Admit/Date: May 28, 2017 Time/Decision to Admit Time: 10:50 Departure-Patient Inst. Referrals: ANDREA CHU MD (PCP/Family) Primary Care Physician Copy Copies To 1: MILAGROS TERYR TITUS J May 28, 2017 09:30
[2017-05-28 09:40] LABS: INR 0.9 (0.8-1.4); PROTHROMBIN TIME PATIENT 11.7 SEC (12.2-14.7)
[2017-05-28] MEDS ORDERED: cefTRIAXone INJECTION 1,000 MG in NS (IVPB) 50 ML IV ONE (09:45)
[2017-05-28 09:48] LABS: ALANINE AMINOTRANSFERASE 38 U/L (0-55); ANION GAP 9 MMOL/L (5-14); ASPARTATE AMINO TRANSFERASE 30 U/L (5-34); BILIRUBIN,TOTAL 0.5 MG/DL (0.1-1.0); BLOOD UREA NITROGEN 13 MG/DL (7-18); BUN/CREATININE RATIO 14; CALCIUM 8.8 MG/DL (8.5-10.1); CARBON DIOXIDE 37 MMOL/L (21-32); CHLORIDE 96 MMOL/L (98-107); GFR ESTIMATED > 60; GLUCOSE 130 MG/DL (70-105); POTASSIUM 3.3 MMOL/L (3.6-5.0); SODIUM 142 MMOL/L (135-145); TOTAL PROTEIN 7.4 GM/DL (6.4-8.2)
[2017-05-28 09:52] LABS: BAND NEUTROPHILS 0 %; LYMPHOCYTES % (MANUAL) 7 %; NEUTROPHILS % (MANUAL) 90 %
[2017-05-28 09:53] LABS: BASOPHILS % (MANUAL) 0 %; EOSINOPHILS % (MANUAL) 0 %
[2017-05-28 09:56] LABS: ABG BASE EXCESS 10.6 MMOL/L (-2.5-2.5); ABG HCO3 36 MMOL/L (23-27); ABG OXYGEN SATURATION 98 % (94-100); ABG PCO2 64 MMHG (35-45); ABG PH 7.38 (7.37-7.43); ABG PO2 102 MMHG (79-93); ABG TCO2 37.4 MMOL/L (21.0-31.0)
[2017-05-28 09:57] LABS: ALLENS TEST YES-POS
[2017-05-28 10:12] LABS: BILIRUBIN,URINE NEGATIVE (NEGATIVE); KETONES,URINE NEGATIVE (NEGATIVE); LEUKOCYTE ESTERASE ,URINE NEGATIVE (NEGATIVE); NITRITE,URINE NEGATIVE (NEGATIVE); PH,URINE 7 (5-9); PROTEIN,URINE 1+ (NEGATIVE); UROBILINOGEN,URINE 1 MG/DL (NORMAL)
[2017-05-28] MEDS ORDERED: POTASSIUM CL 10MEQ/50ML IVPB 50 ML IV ONE (10:15)
[2017-05-28] MEDS ORDERED: RT-ALBUTEROL SULF 2.5 MG/3 ML PRE-MIX VIAL IH STA (10:21)
[2017-05-28] MEDS ORDERED: methylPREDNISolone 125 MG (Solu-MEDROL) VIAL IVP ONE (11:00)
--- NOTE | 2017-05-28 11:05 | Diagnostic Imaging Report ---
EXAMINATION: PA and lateral views of the chest. INDICATION: Shortness of breath. 07/07/2016. FINDINGS: The lungs demonstrate mild interstitial thickening, which appears chronic. There is minimal density in the left lung base similar to prior exams likely related to pericardial fat-pad. The heart size is normal. No effusion or pneumothorax. The mediastinum and simone appear unremarkable. IMPRESSION: No acute process. Dictated by: Dictated on workstation # [id number]
[2017-05-28] MEDS ORDERED: ALBU18HF2 INH (12:50)
[2017-05-28] MEDS ORDERED: CALC-870 PO (12:57)
[2017-05-28] MEDS ORDERED: CATHETER FLUSH 10 ML SYR IV PRN (13:00)
[2017-05-28] MEDS ORDERED: AZITHROMYCIN 500 MG/NS 250 ML IVPB IV NR ×2 (13:00)
[2017-05-28] MEDS ORDERED: ACETAMINOPHEN 500 MG TAB (TYLENOL) PO PRN (13:00)
[2017-05-28] MEDS ORDERED: ONDANSETRON 4 MG/2 ML (SDV) Z0FRAN IV PRN (13:00)
[2017-05-28] MEDS: NS IV 1000 ML 1,000 ML IV SCH ×3 (13:46→22:17)
[2017-05-28 13:50] VITALS: BP 178/79
[2017-05-28] MEDS ORDERED: RT-ALBUTEROL/IPRATROPIUM 3 ML (DUONEB) VIAL INH PRN (14:15)
[2017-05-28] MEDS: RT-ALBUTEROL/IPRATROPIUM 3 ML (DUONEB) VIAL INH SCH ×2 (15:53→22:09)
[2017-05-28 16:00] VITALS: BP 119/58
[2017-05-28] MEDS: POTASSIUM CL 10MEQ/50ML IVPB 50 ML IV SCH ×4 (17:52→22:17)
[2017-05-28] MEDS: IBUPROFEN 800 MG (MOTRIN) TAB PO PRN (18:16)
[2017-05-28 20:00] VITALS: BP 136/63
[2017-05-28] MEDS: methylPREDNISolone 125 MG (Solu-MEDROL) VIAL IV SCH (20:57)
[2017-05-28] MEDS: diphenhydrAMINE 25 MG TAB (BENADRYL) PO PRN (23:31)
[2017-05-29] VITALS: BP 146/65
[2017-05-29] MEDS ORDERED: ALPRAZolam 0.5 MG (XANAX) TAB ONE (01:26)
[2017-05-29] MEDS: ALPRAZolam 1 MG (XANAX) TAB PO PRN ×2 (01:33→23:33)
[2017-05-29] MEDS: RT-ALBUTEROL/IPRATROPIUM 3 ML (DUONEB) VIAL INH SCH ×4 (03:18→21:38)
[2017-05-29 04:00] VITALS: BP 138/62
[2017-05-29] MEDS: methylPREDNISolone 125 MG (Solu-MEDROL) VIAL IV SCH ×3 (04:54→20:59)
[2017-05-29 06:45] LABS: BASOPHILS % (AUTO) 0 % (0-10); EOSINOPHILS % (AUTO) 0 % (0-10); LYMPHOCYTES # (AUTO) 0.9 X 10^3 (1.0-4.0); LYMPHOCYTES % (AUTO) 4 % (12-44); MEAN CORPUSCULAR HEMOGLOBIN 26 PG (25-34); MEAN CORPUSCULAR HGB CONC 31 G/DL (32-36); MEAN CORPUSCULAR VOLUME 84 FL (80-99); MEAN PLATELET VOLUME 10.5 FL (7.4-10.4); MONOCYTES # (AUTO) 0.3 X 10^3 (0.0-1.0); MONOCYTES % (AUTO) 1 % (0-12); NEUTROPHILS # (AUTO) 22.4 X 10^3 (1.8-7.8); NEUTROPHILS % (AUTO) 95 % (42-75); PLATELET COUNT 212 10^3/uL (130-400); RED BLOOD COUNT 3.55 10^6/uL (4.35-5.85); RED CELL DISTRIBUTION WIDTH 14.1 % (10.0-14.5); WHITE BLOOD COUNT 23.6 10^3/uL (4.3-11.0)
[2017-05-29 07:03] LABS: ANION GAP 11 MMOL/L (5-14); BLOOD UREA NITROGEN 13 MG/DL (7-18); BUN/CREATININE RATIO 17; CALCIUM 8.4 MG/DL (8.5-10.1); CARBON DIOXIDE 23 MMOL/L (21-32); CHLORIDE 107 MMOL/L (98-107); CREATININE SERUM 0.77 MG/DL (0.60-1.30); GFR ESTIMATED > 60; GLUCOSE 256 MG/DL (70-105); SODIUM 141 MMOL/L (135-145)
--- NOTE | 2017-05-29 07:53 | Diagnostic Imaging Report ---
INDICATION: Shortness of air. COMPARISON: 05/28/2017. FINDINGS: Left upper lobe patchy consolidations are more conspicuous on today's exam. Potential reticular nodular opacities in the lung bases. Trace right pleural effusion. No pneumothorax. Normal heart size. IMPRESSION: 1. Left upper lobe patchy consolidations may relate to pneumonia per patient history. 2. Right basilar reticular nodular opacities could relate to an infectious bronchiolitis or atelectasis. 3. Trace right pleural effusion. Dictated by: Dictated on workstation # [id number]
[2017-05-29 08:00] VITALS: BP 147/63
[2017-05-29] MEDS: AZITHROMYCIN 250 MG TAB (ZITHROMAX) PO SCH (08:14)
[2017-05-29] MEDS: diphenhydrAMINE 25 MG TAB (BENADRYL) PO PRN (09:39)
--- NOTE | 2017-05-29 10:28 | History & Physicial (CHS) ---
JUAN JOSÉ CUENCA STUDENT 05/29/17 1028: HPI History of Present Illness: Patient was brought to the hospital by her daughter yesterday morning. She said that Sunday, she was at a parade and was exposed to a lot of people. She started having a sore throat and headache on Sunday night. On Sunday, she woke up with a 100 degree fever, and by the time she got to the hospital, her fever was up to 103. The fever peaked at 103.7 yesterday. She has noticed that she was slightly wheezy, but she didn't think that it was any more than normal. At home, she takes oxycodone, xanax, sertraline, a BP medication every other day, potassium, benedryl, oxygen, and an inhaler PRN. She uses her inhaler 3-4 times per week, especially after walking. She is on 2.5-3 L of oxygen at home. She thinks that she is on too much oxygen here (5L) because she says it's like a fan in her face. Since this morning, she feels a lot better. She says that her fever broke last night, and she has not had any chills since then. Denies fever , chills, n/v/d, chest pain. She has SOB but no increase from normal with her COPD. She has a headache because she hasn't had her oxycodone in the past two days. She noticed increase in swelling in her feet. Source: patient Exam Limitations: no limitations Date seen by provider: May 29, 2017 Time Seen by Provider: 08:30 Attending Physician Suzy Espinoza MD PCP Ravin Vang MD Consult Date of Admission May 28, 2017 at 10:30 Home Medications Home Medications Reviewed patient Home Medication Reconciliation Form Allergies Coded Allergies: levofloxacin (Verified Allergy, Severe, SEVERE SWELLING OF KNEES, 05/28/17) zolpidem (Verified Allergy, Unknown, 05/28/17) Uncoded Allergies: HONEY BEES (Allergy, Severe, ANAPHYLAXIS, 08/07/14) LKB-Rdasst-Vreakd Hx Patient Social History Number of Children: 5 Number of living children: 5 Alcohol Use: Denies Use Recreational Drug Use: No Smoking Status: Former Smoker Type Used: Cigarettes Recent Foreign Travel: No Contact w/other who traveled: No Recent Hopitalizations: No Recent Infectious Disease Expo: No Physical Abuse Screen: No Sexual Abuse: No Immunizations Up To Date Tetanus Booster (TDap): More than 5yrs Date of Pneumonia Vaccine: Mar 25, 2015 Date of Influenza Vaccine: Mar 25, 2017 Past Medical History Past medical history 1. COPD 2. Pulmonary embolus in the distant past related to OCP 3. Hypertension 4. Chronic anxiety and depression 5. Multiple admissions with pneumonia H-Flu 2-15, Strep Pneumonia 12-13 Past surgical history 1. Hysterectomy 2. Open right shoulder surgery 3. Appendectomy -Kido 4. Knee arthroscopy Family Medical History Family History: Arthritis 19 FATHER Asthma DAUGHTER Cancer (brother of throat cancer) 19 MOTHER G8 SISTER Cardiovascular disease 19 FATHER Colon cancer 19 MOTHER Coronary thrombosis DAUGHTER Diabetes mellitus DAUGHTER Drug abuse DAUGHTER Headache disorder DAUGHTER Hypercholesterolemia DAUGHTER Hypertension DAUGHTER Myocardial infarction 19 MOTHER Psychosocial problem DAUGHTER Respiratory disorder DAUGHTER Stroke (father had stroke) Tuberculosis No Family History of: AIDS Abdominal aortic aneurysm Joon's disease Alcoholism Alzheimer's disease Aphasia Cancer of mouth Cataracts Completed stroke Congenital disease Congenital heart disease Congenital heart disease (mother of copd and CHF) Cystic fibrosis Deafness or hearing loss Dementia Dysphasia Fibrocystic disease of breast Gastroenteritis Glaucoma Infertility Kidney disease Neoplasm Not obtainable due to adoption Osteoporosis Parkinson's disease Prostate cancer Seizure disorder Severe allergy Thyroid disease Visual disorder Review of Systems (CHC) Constitutional: No chills, diaphoresis EENTM: throat pain Respiratory: cough, dyspnea on exertion, short of breath, wheezing Cardiovascular: No chest pain, No palpitations Gastrointestinal: No abdominal pain, No constipation, No diarrhea Psychiatric/Neurological: Anxiety, Depressed Reviewed Test Results Reviewed Test Results Lab Vital Signs 05/29/17 10:07 Pulse Ox 92 O2 Delivery High Flow N/C O2 Flow Rate 4.00 VS - Last 72 Hours, by Label 05/28/17 05/28/17 05/28/17 05/28/17 09:08 09:36 11:10 12:00 Temp 103.3 103.3 Pulse 126 112 Resp 25 25 B/P (MAP) 178/79 (112) Pulse Ox 78 96 100 100 O2 Delivery Nasal Cannula Nasal Cannula Nasal Cannula Nasal Cannula O2 Flow Rate 5.00 5.00 5.00 12/4/17 12/4/17 12/4/17 12/4/17 13:50 13:50 15:53 16:00 Temp 96.6 Pulse 115 108 Resp 18 B/P (MAP) 119/58 (78) Pulse Ox 96 96 95 94 O2 Delivery OxyMask OxyMask Nasal Cannula O2 Flow Rate 6.00 6.00 6.00 05/28/17 05/28/17 05/28/17 05/29/17 20:00 21:15 22:09 00:00 Temp 95.9 97.5 Pulse 115 103 Resp 18 17 B/P (MAP) 136/63 (87) 146/65 (92) Pulse Ox 97 95 92 95 O2 Delivery Nasal Cannula High Flow N/C High Flow N/C High Flow N/C O2 Flow Rate 6.00 6.00 6.00 6.00 05/29/17 05/29/17 05/29/17 05/29/17 03:18 04:00 08:00 08:00 Temp 97.6 97.6 Pulse 101 91 Resp 20 18 B/P (MAP) 138/62 (87) 147/63 (91) Pulse Ox 90 95 95 95 O2 Delivery High Flow N/C High Flow N/C High Flow N/C Nasal Cannula O2 Flow Rate 6.00 6.00 6.00 6.00 05/29/17 10:07 Pulse Ox 92 O2 Delivery High Flow N/C O2 Flow Rate 4.00 Laboratory Tests Test 05/29/17 06:32 Range/Units White Blood Count 23.6 H 4.3-11.0 10^3/uL Red Blood Count 3.55 L 4.35-5.85 10^6/uL Hemoglobin 9.2 #L 11.5-16.0 G/DL Hematocrit 30 L 35-52 % Mean Corpuscular Volume 84 80-99 FL Mean Corpuscular Hemoglobin 26 25-34 PG Mean Corpuscular Hemoglobin Concent 31 L 32-36 G/DL Red Cell Distribution Width 14.1 10.0-14.5 % Platelet Count 212 130-400 10^3/uL Mean Platelet Volume 10.5 H 7.4-10.4 FL Neutrophils (%) (Auto) 95 H 42-75 % Lymphocytes (%) (Auto) 4 L 12-44 % Monocytes (%) (Auto) 1 0-12 % Eosinophils (%) (Auto) 0 0-10 % Basophils (%) (Auto) 0 0-10 % Neutrophils # (Auto) 22.4 H 1.8-7.8 X 10^3 Lymphocytes # (Auto) 0.9 L 1.0-4.0 X 10^3 Monocytes # (Auto) 0.3 0.0-1.0 X 10^3 Eosinophils # (Auto) 0.0 0.0-0.3 10^3/uL Basophils # (Auto) 0.0 0.0-0.1 10^3/uL Sodium Level 141 135-145 MMOL/L Potassium Level 3.0 L 3.6-5.0 MMOL/L Chloride Level 107 98-107 MMOL/L Carbon Dioxide Level 23 21-32 MMOL/L Anion Gap 11 5-14 MMOL/L Blood Urea Nitrogen 13 7-18 MG/DL Creatinine 0.77 0.60-1.30 MG/DL Estimat Glomerular Filtration Rate > 60 BUN/Creatinine Ratio 17 Glucose Level 256 H 70-105 MG/DL Calcium Level 8.4 L 8.5-10.1 MG/DL Radiology Chest x-ray completed in on 05/28. Interpretation as documented by Dr. Medina: No acute process. Chest x-ray completed on 05/29 and compared to 05/28. Interpretation as documented by Dr. Medina: IMPRESSION: 1. Left upper lobe patchy consolidations may relate to pneumonia per patient history. 2. Right basilar reticular nodular opacities could relate to an infectious bronchiolitis or atelectasis. 3. Trace right pleural effusion. Throat culture negative for GAS. Nasopharyngeal culture negative for Influenza A and B. Physical Exam-(CHC) Physical Exam Vital Signs VS - Last 72 Hours, by Label 05/28/17 05/28/17 05/28/17 05/28/17 09:08 09:36 11:10 12:00 Temp 103.3 103.3 Pulse 126 112 Resp 25 25 B/P (MAP) 178/79 (112) Pulse Ox 78 96 100 100 O2 Delivery Nasal Cannula Nasal Cannula Nasal Cannula Nasal Cannula O2 Flow Rate 5.00 5.00 5.00 05/28/17 05/28/17 05/28/17 05/28/17 13:50 13:50 15:53 16:00 Temp 96.6 Pulse 115 108 Resp 18 B/P (MAP) 119/58 (78) Pulse Ox 96 96 95 94 O2 Delivery OxyMask OxyMask Nasal Cannula O2 Flow Rate 6.00 6.00 6.00 05/28/17 05/28/17 05/28/17 05/29/17 20:00 21:15 22:09 00:00 Temp 95.9 97.5 Pulse 115 103 Resp 18 17 B/P (MAP) 136/63 (87) 146/65 (92) Pulse Ox 97 95 92 95 O2 Delivery Nasal Cannula High Flow N/C High Flow N/C High Flow N/C O2 Flow Rate 6.00 6.00 6.00 6.00 05/29/17 05/29/17 05/29/17 05/29/17 03:18 04:00 08:00 08:00 Temp 97.6 97.6 Pulse 101 91 Resp 20 18 B/P (MAP) 138/62 (87) 147/63 (91) Pulse Ox 90 95 95 95 O2 Delivery High Flow N/C High Flow N/C High Flow N/C Nasal Cannula O2 Flow Rate 6.00 6.00 6.00 6.00 05/29/17 10:07 Pulse Ox 92 O2 Delivery High Flow N/C O2 Flow Rate 4.00 Capillary Refill : Less Than 3 Seconds General Appearance: WD/WN, no apparent distress Neck: non-tender, supple, normal inspection Respiratory: no respiratory distress, wheezing Cardiovascular: regular rate, rhythm, no murmur Gastrointestinal: normal bowel sounds, non tender, soft Extremities: non-tender, pedal edema Neurologic/Psychiatric: alert, normal mood/affect, oriented x 3 Skin: normal color, diaphoresis Clinical Quality Measures DVT/VTE Risk/Contraindication: Risk Factor Score Per Nursin RFS Level Per Nursing on Admit: 4+=Very High Copy Copies To 1: SUZY ESPINOZA MD Assessment/Plan Assessment/Plan Admission Dx Suspected sepsis Plan 1. COPD exacerbation -continue IV steroids and breathing treatments until oxygen use is at 2.5-3 L as is at home -monitor ABGs 2. Suspected pneumonia -continue antibiotics -monitor vitals and oxygen sats for improvement 3. Leukocytosis -See above 4. Hyperglycemia -monitor as infection clears 5. Anxiety - continue home medications 6. Depression -continue home medications 7. HTN -continue home medications SUZY ESPINOZA MD 06/21/17 0855: Home Medications Allergies Coded Allergies: levofloxacin (Verified Allergy, Severe, SEVERE SWELLING OF KNEES, 05/28/17) zolpidem (Verified Allergy, Unknown, 05/28/17) Uncoded Allergies: HONEY BEES (Allergy, Severe, ANAPHYLAXIS, 08/07/14) GZB-Bejdbe-Aypulw Hx Family Medical History Family History: Arthritis 19 FATHER Asthma DAUGHTER Cancer (brother of throat cancer) 19 MOTHER G8 SISTER Cardiovascular disease 19 FATHER Colon cancer 19 MOTHER Coronary thrombosis DAUGHTER Diabetes mellitus DAUGHTER Drug abuse DAUGHTER Headache disorder DAUGHTER Hypercholesterolemia DAUGHTER Hypertension DAUGHTER Myocardial infarction 19 MOTHER Psychosocial problem DAUGHTER Respiratory disorder DAUGHTER Stroke (father had stroke) Tuberculosis No Family History of: AIDS Abdominal aortic aneurysm Brantley's disease Alcoholism Alzheimer's disease Aphasia Cancer of mouth Cataracts Completed stroke Congenital disease Congenital heart disease Congenital heart disease (mother of copd and CHF) Cystic fibrosis Deafness or hearing loss Dementia Dysphasia Fibrocystic disease of breast Gastroenteritis Glaucoma Infertility Kidney disease Neoplasm Not obtainable due to adoption Osteoporosis Parkinson's disease Prostate cancer Seizure disorder Severe allergy Thyroid disease Visual disorder Copy Copies To 1: SUZY ESPINOZA MD Assessment/Plan Assessment/Plan Plan Patient seen and examined with Juan José Allison, MS3, agree with above documentation JUAN JOSÉ CUENCA STUDENT May 29, 2017 10:28 SUZY ESPINOZA MD Jun 21, 2017 08:55
[2017-05-29] MEDS: IBUPROFEN 800 MG (MOTRIN) TAB PO PRN (11:48)
[2017-05-29 12:00] VITALS: BP 140/65
[2017-05-29] MEDS ORDERED: KCL 10 MEQ TAB (MICRO K) PO PRN (14:30)
[2017-05-29] MEDS: HYDROcodone/APAP 7.5 MG/325 MG (LORTAB, LORCET PLUS) TABLET PO PRN ×2 (14:39→21:02)
[2017-05-29 16:45] VITALS: BP 147/83
[2017-05-29 20:34] VITALS: BP 139/72
[2017-05-29] MEDS ORDERED: NON-FORMULARY MEDICATION 1 EA EA (Fluticasone/Salmeterol (Advair 250-50 Diskus) 1 PUFF) IH SCH (21:00)
[2017-05-29] MEDS: RT-ADVAIR HFA 115/21 MCG PER PUFF IH SCH (21:39)
[2017-05-30] VITALS: BP 151/90
[2017-05-30] MEDS: RT-ALBUTEROL/IPRATROPIUM 3 ML (DUONEB) VIAL INH SCH ×4 (03:22→19:14)
[2017-05-30 04:00] VITALS: BP 163/89
[2017-05-30] MEDS: methylPREDNISolone 125 MG (Solu-MEDROL) VIAL IV SCH ×3 (04:07→20:45)
[2017-05-30 08:04] VITALS: BP 166/88
[2017-05-30] MEDS: AZITHROMYCIN 250 MG TAB (ZITHROMAX) PO SCH (08:51)
[2017-05-30] MEDS: SERTRALINE 50 MG (ZOLOFT) TABLET PO SCH (08:51)
[2017-05-30] MEDS: HYDROCHLOROTHIAZIDE 12.5 MG (HCTZ) CAP PO SCH (08:52)
[2017-05-30] MEDS: LOSARTAN 50 MG (COZAAR) TAB PO SCH (08:52)
[2017-05-30] MEDS: RT-ADVAIR HFA 115/21 MCG PER PUFF IH SCH ×2 (09:47→19:15)
--- NOTE | 2017-05-30 10:11 | Physician Query Clarification ---
PQ-Intro New Diagnosis Admission/Discharge Admission Date: May 28, 2017 at 10:30 Discharge Date: The medical record reflects the following clinical scenario: History/Risk Factors: Pneumonia/Acute Exacerbation of COPD Chronic respiratory acidosis per ED physician Clinical Findings: Pulse Ox 78% on admission with Resp 25, Pulse 126, Blood gases-PH 7.38, pCO2 264 Treatment: Nasal Cannula at 5,6 and tapering to 3 L, IV Solu Medrol Question: What condition best reflects the above clinical scenario? Please document below. 1. Acute respiratory failure 2. Acute respiratory failure related to sepsis 3. Chronic respiratory acidosis 4. Other, with explanation of the clinical findings. 5. Clinically undetermined, no explanation for the clinical findings. PHYSICIAN RESPONSE What condition reflects above: 1 (with hypoxia) In responding to this query, please exercise your independent professional judgment. The purpose of this communication is to more accurately reflect the complexity of your patients condition. The fact that a question is asked does not imply that any particular answer is desired or expected. Thank you for your timely response to this clarification. Requestors name: Olya Hamilton [facility] Phone # ext [phone] or [phone] THIS PHYSICIAN QUERY FORM IS A PERMANENT PART OF THE MEDICAL RECORD OLYA HAMILTON May 30, 2017 10:11 SUZY ESPINOZA MD Jun 21, 2017 08:52
[2017-05-30 10:30] LABS: BASOPHILS % (AUTO) 0 % (0-10); EOSINOPHILS % (AUTO) 0 % (0-10); LYMPHOCYTES % (AUTO) 5 % (12-44); MEAN CORPUSCULAR HEMOGLOBIN 26 PG (25-34); MEAN CORPUSCULAR HGB CONC 32 G/DL (32-36); MEAN CORPUSCULAR VOLUME 82 FL (80-99); MEAN PLATELET VOLUME 11.2 FL (7.4-10.4); MONOCYTES # (AUTO) 0.4 X 10^3 (0.0-1.0); MONOCYTES % (AUTO) 2 % (0-12); NEUTROPHILS # (AUTO) 21.6 X 10^3 (1.8-7.8); NEUTROPHILS % (AUTO) 94 % (42-75); PLATELET COUNT 259 10^3/uL (130-400); RED BLOOD COUNT 4.04 10^6/uL (4.35-5.85); RED CELL DISTRIBUTION WIDTH 14.8 % (10.0-14.5); WHITE BLOOD COUNT 23.1 10^3/uL (4.3-11.0)
[2017-05-30 10:52] LABS: ANION GAP 10 MMOL/L (5-14); BLOOD UREA NITROGEN 18 MG/DL (7-18); BUN/CREATININE RATIO 22; CALCIUM 8.1 MG/DL (8.5-10.1); CARBON DIOXIDE 22 MMOL/L (21-32); CHLORIDE 105 MMOL/L (98-107); CREATININE SERUM 0.83 MG/DL (0.60-1.30); GFR ESTIMATED > 60; GLUCOSE 215 MG/DL (70-105); POTASSIUM 4.8 MMOL/L (3.6-5.0); SODIUM 137 MMOL/L (135-145)
--- NOTE | 2017-05-30 11:16 | Progress Note (SOAP) ---
Subjective Subjective/Events-last exam Patient is feeling better this AM, was able to titrate oxygen some. Still having alot of anxiety. Tolerating PO diet. Has ambulated to bathroom some but has not been out of bed much. Denies Chest pain, nausea/vomiting or abdominal pain. Review of Systems Date Seen by Provider: May 30, 2017 Time Seen by Provider: 10:05 General: No Chills, No Night Sweats Pulmonary: Dyspnea, Cough Cardiovascular: No: Chest Pain, Palpitations Gastrointestinal: No: Nausea, Vomiting, Abdominal Pain Genitourinary: Other (schaefer inserted) Objective Exam Last Set of Vital Signs Vital Signs Date Time Temp Pulse Resp B/P (MAP) Pulse Ox O2 Delivery O2 Flow Rate FiO2 05/30/17 09:50 91 High Flow N/C 3.00 05/30/17 08:04 96.1 100 20 166/88 (114) Capillary Refill : Less Than 3 Seconds I&O Intake and Output 05/30/17 00:00 Intake Total 1530 ml Output Total 1860 ml Balance -330 ml Intake Oral 1480 ml IV Total 50 ml Output Urine Total 1860 ml General: Alert, Oriented X3, Cooperative, No Acute Distress Lungs: Other (end exp wheezing at the bases, normal work of breathing) Heart: Regular Rate, No Murmurs Abdomen: Normal Bowel Sounds, Soft, No Tenderness Extremities: No Edema, No Tenderness/Swelling Results/Procedures Lab Laboratory Tests 05/30/17 10:20: White Blood Count 23.1H, Red Blood Count 4.04L, Hemoglobin 10.5L, Hematocrit 33L , Mean Corpuscular Volume 82, Mean Corpuscular Hemoglobin 26, Mean Corpuscular Hemoglobin Concent 32, Red Cell Distribution Width 14.8H, Platelet Count 259, Mean Platelet Volume 11.2H, Neutrophils (%) (Auto) 94H, Lymphocytes (%) (Auto) 5L, Monocytes (%) (Auto) 2, Eosinophils (%) (Auto) 0, Basophils (%) (Auto) 0, Neutrophils # (Auto) 21.6H, Lymphocytes # (Auto) 1.0, Monocytes # (Auto) 0.4, Eosinophils # (Auto) 0.0, Basophils # (Auto) 0.0, Sodium Level 137, Potassium Level 4.8, Chloride Level 105, Carbon Dioxide Level 22, Anion Gap 10, Blood Urea Nitrogen 18, Creatinine 0.83, Estimat Glomerular Filtration Rate > 60, BUN/ Creatinine Ratio 22, Glucose Level 215H, Calcium Level 8.1L Microbiology 05/28/17 Blood Culture - Preliminary, Resulted No growth 05/28/17 Gram Stain - Final, Resulted 05/28/17 Sputum Culture - Preliminary, Resulted Streptococcus Pneumoniae Radiology Chest x-ray completed in on 05/28. Interpretation as documented by Dr. Medina: No acute process. Chest x-ray completed on 05/29 and compared to 05/28. Interpretation as documented by Dr. Medina: IMPRESSION: 1. Left upper lobe patchy consolidations may relate to pneumonia per patient history. 2. Right basilar reticular nodular opacities could relate to an infectious bronchiolitis or atelectasis. 3. Trace right pleural effusion. Procedures Throat culture negative for GAS. Nasopharyngeal culture negative for Influenza A and B. Assessment/Plan Assessment/Plan Plan 1. COPD exacerbation -continue IV steroids and breathing treatments until oxygen use is at 2.5-3 L as is at home -monitor ABGs 2. Suspected pneumonia -continue antibiotics -monitor vitals and oxygen sats for improvement 3. Leukocytosis -See above 4. Hyperglycemia -monitor as infection clears 5. Anxiety - continue home medications 6. Depression -continue home medications 7. HTN -continue home medications Seen and Elevated patient with MS3 Mireille Keegan Acute on Chronic Respiratory failure with Hypoxia - Patient is back on baseline oxygen levels Sepsis with Strep PNA - Continue antibiotics, no other end organ damage - Vital signs stable Strep Pneumonia - See above, continue antibiotics Acute COPD Exacerbation - Continue steroids and breathing treatments, patient on home oxygen level this AM Anxiety - Continue home Xanax HTN: Uncontrolled - Continue home meds Hypokalemia: Resolved this AM FEN: Reg diet DVT PXX: Lovenox 40 mg Dispo: plan to d/c home tomorrow Clinical Quality Measures DVT/VTE Risk/Contraindication: Risk Factor Score Per Nursin RFS Level Per Nursing on Admit: 4+=Very High SUZY ESPINOZA MD May 30, 2017 11:16
[2017-05-30 12:00] VITALS: BP_SYST 166; BP_SYST 168; BP_DIAS 88; BP_DIAS 97
[2017-05-30] MEDS: ENOXAPARIN 40 MG/0.4 ML (LOVENOX) SYR SC SCH (13:04)
[2017-05-30] MEDS: ALPRAZolam 1 MG (XANAX) TAB PO PRN ×2 (13:04→22:31)
[2017-05-30 15:44] VITALS: BP 167/75
[2017-05-30 19:28] VITALS: BP 165/73
[2017-05-30] MEDS: HYDROcodone/APAP 7.5 MG/325 MG (LORTAB, LORCET PLUS) TABLET PO PRN (20:45)
[2017-05-31] VITALS: BP 158/80
[2017-05-31] MEDS: RT-ALBUTEROL/IPRATROPIUM 3 ML (DUONEB) VIAL INH SCH ×2 (02:45→08:45)
[2017-05-31] MEDS: methylPREDNISolone 125 MG (Solu-MEDROL) VIAL IV SCH ×2 (03:21→11:39)
[2017-05-31 04:25] VITALS: BP 160/84
[2017-05-31] MEDS: diphenhydrAMINE 25 MG TAB (BENADRYL) PO PRN (05:43)
[2017-05-31] MEDS: HYDROcodone/APAP 7.5 MG/325 MG (LORTAB, LORCET PLUS) TABLET PO PRN ×2 (05:44→15:02)
[2017-05-31 06:22] LABS: BASOPHILS % (AUTO) 0 % (0-10); EOSINOPHILS % (AUTO) 0 % (0-10); LYMPHOCYTES # (AUTO) 1.1 X 10^3 (1.0-4.0); LYMPHOCYTES % (AUTO) 5 % (12-44); MEAN CORPUSCULAR HEMOGLOBIN 26 PG (25-34); MEAN CORPUSCULAR HGB CONC 31 G/DL (32-36); MEAN CORPUSCULAR VOLUME 83 FL (80-99); MEAN PLATELET VOLUME 10.8 FL (7.4-10.4); MONOCYTES # (AUTO) 0.6 X 10^3 (0.0-1.0); MONOCYTES % (AUTO) 3 % (0-12); NEUTROPHILS # (AUTO) 19.9 X 10^3 (1.8-7.8); NEUTROPHILS % (AUTO) 92 % (42-75); PLATELET COUNT 314 10^3/uL (130-400); RED BLOOD COUNT 4.14 10^6/uL (4.35-5.85); RED CELL DISTRIBUTION WIDTH 14.8 % (10.0-14.5); WHITE BLOOD COUNT 21.7 10^3/uL (4.3-11.0)
[2017-05-31 06:23] LABS: ANION GAP 12 MMOL/L (5-14); BLOOD UREA NITROGEN 23 MG/DL (7-18); BUN/CREATININE RATIO 27; CALCIUM 8.6 MG/DL (8.5-10.1); CARBON DIOXIDE 27 MMOL/L (21-32); CHLORIDE 102 MMOL/L (98-107); CREATININE SERUM 0.84 MG/DL (0.60-1.30); GFR ESTIMATED > 60; GLUCOSE 249 MG/DL (70-105); POTASSIUM 3.4 MMOL/L (3.6-5.0); SODIUM 141 MMOL/L (135-145)
[2017-05-31 08:00] VITALS: BP 184/82
[2017-05-31] MEDS ORDERED: KCL 20 MEQ TAB (K-DUR) PO NR (08:15)
[2017-05-31] MEDS: SERTRALINE 50 MG (ZOLOFT) TABLET PO SCH (08:31)
[2017-05-31] MEDS: AZITHROMYCIN 250 MG TAB (ZITHROMAX) PO SCH (08:32)
[2017-05-31] MEDS: ALPRAZolam 1 MG (XANAX) TAB PO PRN (08:32)
[2017-05-31] MEDS: HYDROCHLOROTHIAZIDE 12.5 MG (HCTZ) CAP PO SCH (08:32)
[2017-05-31] MEDS: LOSARTAN 50 MG (COZAAR) TAB PO SCH (08:32)
[2017-05-31] MEDS: RT-ADVAIR HFA 115/21 MCG PER PUFF IH SCH (08:45)
--- NOTE | 2017-05-31 09:03 | Discharge Summary ---
Diagnosis/Chief Complaint Date of Admission May 28, 2017 at 10:30 Date of Discharge 05/31/2017 Admission Diagnosis Admission Diagnosis COPD Exacerbation: Started on IV steroids and transitioned to PO steroids. Started on antibiotics for PNA. Patient was initially on increased oxygen and able to wean down on day 2 of admission. CAP: Started on antibiotics and sent home with additional days. Hyperglycemia Anxiety: Chronic, continued on home medications Depression: Chronic, continued on home medications HTN: Chronic and controlled during admission, continued on home medications Discharge Diagnosis See Above Chief Complaint/HPI Chief Complaint/HPI Patient was brought to the hospital by her daughter yesterday morning. She said that Sunday, she was at a parade and was exposed to a lot of people. She started having a sore throat and headache on Sunday night. On Sunday, she woke up with a 100 degree fever, and by the time she got to the hospital, her fever was up to 103. The fever peaked at 103.7 yesterday. She has noticed that she was slightly wheezy, but she didn't think that it was any more than normal. At home, she takes oxycodone, xanax, sertraline, a BP medication every other day, potassium, benedryl, oxygen, and an inhaler PRN. She uses her inhaler 3-4 times per week, especially after walking. She is on 2.5-3 L of oxygen at home. She thinks that she is on too much oxygen here (5L) because she says it's like a fan in her face. Since this morning, she feels a lot better. She says that her fever broke last night, and she has not had any chills since then. Denies fever , chills, n/v/d, chest pain. She has SOB but no increase from normal with her COPD. She has a headache because she hasn't had her oxycodone in the past two days. She noticed increase in swelling in her feet. Discharge Summary-Simple/Stand Procedures Throat culture negative for GAS. Nasopharyngeal culture negative for Influenza A and B. Consultations Discharge Physical Examination Allergies: Coded Allergies: levofloxacin (Verified Allergy, Severe, SEVERE SWELLING OF KNEES, 05/28/17) zolpidem (Verified Allergy, Unknown, 05/28/17) Uncoded Allergies: HONEY BEES (Allergy, Severe, ANAPHYLAXIS, 08/07/14) Vitals & I&Os Vital Sign - Last 12Hours Date Time Temp Pulse Resp B/P (MAP) Pulse Ox O2 Delivery O2 Flow Rate FiO2 05/31/17 08:45 94 High Flow N/C 3.00 05/31/17 08:00 96.2 95 20 184/82 (116) Intake and Output 05/31/17 00:00 Intake Total 1374 ml Output Total 400 ml Balance 974 ml General Appearance: Alert, Oriented X3, Cooperative, No Acute Distress HEENT: Mucous Memb Moist/[place] Respiratory: Normal Air Movement, Other (Mild end exp wheezing, normal work of breathing) Cardiovascular: Regular Rate, No Murmurs Abdominal: Normal Bowel Sounds, Soft, No Tenderness, No Hepatosplenomegaly, No Masses Extremities: No Edema, No Tenderness/Swelling Skin: No Rashes Neuro: Normal Speech, Strength at 5/5 X4 Ext, Cranial Nerves 3-12 NL Psych/Mental Status: Mental Status NL, Mood NL Hospital Course See final discharge diagnosis. Radiology Reviewed Chest x-ray completed in on 05/28. Interpretation as documented by Dr. Medina: No acute process. Chest x-ray completed on 05/29 and compared to 05/28. Interpretation as documented by Dr. Medina: IMPRESSION: 1. Left upper lobe patchy consolidations may relate to pneumonia per patient history. 2. Right basilar reticular nodular opacities could relate to an infectious bronchiolitis or atelectasis. 3. Trace right pleural effusion. Discussion & Recommendations See Admission Dx Discharge Condition at discharge Stable Instructions to patient/family Please see electronic discharge instructions given to patient. Discharge Medications Reviewed and agree with Discharge Medication list on patient's Discharge Instruction sheet Clinical Quality Measures DVT/VTE Risk/Contraindication: Risk Factor Score Per Nursin RFS Level Per Nursing on Admit: 4+=Very High Copy Copies To 1: SUZY ESPINOZA MD, HOLLY R MD May 31, 2017 09:03
[2017-05-31] MEDS ORDERED: PRD20T PO (09:06)
[2017-05-31] MEDS ORDERED: AZIT250T12 PO (09:06)
[2017-05-31] MEDS ORDERED: FLUC150T PO (09:06)
[2017-05-31] MEDS: ENOXAPARIN 40 MG/0.4 ML (LOVENOX) SYR SC SCH (11:39)
[2017-05-31 12:00] VITALS: BP 179/93
[2017-05-31 15:15] VITALS: BP 179/93
--- NOTE | 2017-06-22 08:30 | Physician Query Clarification ---
PQ-Uncertain Diagnosis Admission/Discharge Admission Date: May 28, 2017 at 10:30 Discharge Date: May 31, 2017 at 15:15 The medical record reflects the following clinical scenario: History/Risk Factors: Pneumonia Clinical Findings: WBCs 23.5, T 103.3, pulse 126, Resp 25, Pulse ox 78%, lactic acid 1.58 Treatment: IV Ceftriaxone Sodium, IV Azithromycin 500mg Question: Is Sepsis with Strep PNA a clinically valid diagnosis? Sepsis with Strep PNA was listed in your 05/30 progress note,but not listed in your discharge diagnosis on the discharge summary. Please document a response below. PHYSICIAN RESPONSE Diagnosis clinically valid: Yes, Conditon resolved In responding to this query, please exercise your independent professional judgment. The purpose of this communication is to more accurately reflect the complexity of your patients condition. The fact that a question is asked does not imply that any particular answer is desired or expected. Thank you for your timely response to this clarification. Requestors name: Olya Hamilton [facility] Phone # ext [phone] or [phone] THIS PHYSICIAN QUERY FORM IS A PERMANENT PART OF THE MEDICAL RECORD OLYA HAMILTON Jun 22, 2017 08:30 SUZY ESPINOZA MD Jun 22, 2017 09:25
== END 2017-05-31 15:15 | disposition home or self-care (01) | DRG 871 ==
LOC: EDUNIT# 09:08 → ER 09:09 → 4TH 10:30
PROVIDERS: ADMIT Family Medicine; ATTEND Family Medicine
DX: A40.3 Sepsis due to Streptococcus pneumoniae (principal); J13 Pneumonia due to Streptococcus pneumoniae; J96.21 Acute and chronic respiratory failure with hypoxia; J44.1 Chronic obstructive pulmonary disease with (acute) exacerbation; J44.0 Chronic obstructive pulmonary disease with (acute) lower respiratory infection; E87.2 Acidosis; I10 Essential (primary) hypertension; E87.6 Hypokalemia; K21.9 Gastro-esophageal reflux disease without esophagitis; M19.91 Primary osteoarthritis, unspecified site; F41.9 Anxiety disorder, unspecified; F32.9 Major depressive disorder, single episode, unspecified; R73.9 Hyperglycemia, unspecified; Z86.711 Personal history of pulmonary embolism; Z87.891 Personal history of nicotine dependence; Z86.73 Personal history of transient ischemic attack (TIA), and cerebral infarction without residual deficits; Z85.41 Personal history of malignant neoplasm of cervix uteri; Z90.710 Acquired absence of both cervix and uterus; Z87.01 Personal history of pneumonia (recurrent); Z87.440 Personal history of urinary (tract) infections; Z99.81 Dependence on supplemental oxygen
CPT/HCPCS: 36415; 51702; 71020; 76937; 80048; 80053; 81000; 82805; 83605; 83880; 85007; 85025; 85027; 85610; 85730; 87040; 87070; 87077; 87205; 87430; 87804; 94640; 94664; 94760; 96361; 96365; 96375

== ENCOUNTER 2018-01-07 05:50 | Emergency (ER) | payer MEDICARE, MEDICAID ==
[~2018-01-07] VITALS: Ht 162.6 cm; Wt 77.1 kg
[~2018-01-07 05:50] MED LIST changes: +ALBU18HF2 INH; +AZIT250T12 PO; +CALC-870 PO; +FLUC150T PO; +HYDR-34 PO
[2018-01-07] MEDS ORDERED: raNItidine 50 MG/2 ML INJ (ZANTAC) ONE (05:59)
[2018-01-07] MEDS ORDERED: NS IV 1000 ML 1,000 ML ONE (05:59)
[2018-01-07] MEDS ORDERED: RT-ALBUTEROL/IPRATROPIUM 3 ML (DUONEB) VIAL ONE (05:59)
[2018-01-07] MEDS ORDERED: raNItidine INJECTION 50 MG in NS (IVPB) 50 ML IV ONE (06:00)
[2018-01-07] MEDS ORDERED: NS IV 1000 ML 1,000 ML IV STA (06:00)
[2018-01-07] MEDS ORDERED: RT-ALBUTEROL/IPRATROPIUM 3 ML (DUONEB) VIAL INH ONE (06:00)
[2018-01-07] MEDS ORDERED: RT-ALBUTEROL SULF 2.5 MG/3 ML PRE-MIX VIAL INH STA (06:22)
[2018-01-07] MEDS ORDERED: RT-ALBUTEROL SULF 2.5 MG/3 ML PRE-MIX VIAL ONE (06:22)
--- NOTE | 2018-01-07 07:36 | ED Integumentary General ---
General Chief Complaint: Allergic Reaction Stated Complaint: ALLERGIC REACTION Nursing Triage Note: Pt arrival on [facility] with report anaphylatic reaction. Pt had called for unable get breathe and itching all over after getting up to BR at 0430. No cause known. Source: patient, family Exam Limitations: no limitations History of Present Illness Date Seen by Provider: Jan 07, 2018 Time Seen by Provider: 06:10 Initial Comments 67-year-old white female presents with an acute allergic reaction. Patient was having generalized erythema and itching to the skin as well as difficulty breathing. The cause for the patient's allergic reaction is unknown. The patient had a similar severe allergic reaction approximately 20 years ago. She' s had multiple episodes of hives in the past. Patient denies new medications, soaps, cosmetics, clothing, or changes in her environment. Allergies and Home Medications Allergies Coded Allergies: levofloxacin (Verified Allergy, Severe, SEVERE SWELLING OF KNEES, 05/28/17) zolpidem (Verified Allergy, Unknown, 05/28/17) Uncoded Allergies: HONEY BEES (Allergy, Severe, ANAPHYLAXIS, 08/07/14) Home Medications Albuterol Sulfate 18 Gm Hfa.aer.ad, 2 PUFF INH Q6H PRN for SHORTNESS OF BREATH, (Reported) Alprazolam 1 Mg Tablet, 1 MG PO BID, (Reported) Azithromycin 250 Mg Tablet, 250 MG PO DAILY Prescribed by: SUZY ESPINOZA on 05/31/17905 Calcium Carbonate 300 Mg Tab.chew, 300 MG PO QID PRN for HEARTBURN, (Reported) Fluconazole 150 Mg Tablet, 150 MG PO ONCE Prescribed by: SUZY ESPINOZA on 05/31/17905 Fluticasone/Salmeterol 1 Each Blst.w.dev, 1 PUFF IH BID, (Reported) Hydrocodone Bit/Acetaminophen 1 Each Tablet, 1 TAB PO Q6H PRN for PAIN-MODERATE, (Reported) Losartan/Hydrochlorothiazide 1 Each Tablet, 0.5 TAB PO DAILY, (Reported) Potassium Chloride 10 Meq Tablet.er, 10 MEQ PO DAILY PRN for CRAMPS, (Reported) LAST FILLED #30 10-05-16 Prednisone 20 Mg Tab, 20 MG PO DAILY Take 3 tabs(60mg)daily,decrease by 1/2 tab(10mg)every other day. Prescribed by: SUZY ESPINOZA on 12/7/17 0906 Sertraline HCl 50 Mg Tablet, 50 MG PO DAILY, (Reported) Patient Home Medication List Home Medication List Reviewed: Yes Constitutional: No chills EENTM: No ear discharge Respiratory: cough Cardiovascular: No chest pain Gastrointestinal: No abdominal pain, No nausea, No vomiting Genitourinary: no symptoms reported Musculoskeletal: no symptoms reported Skin: see HPI, rash (and itching generally) Psychiatric/Neurological: No Symptoms Reported Endocrine: No Symptoms Reported Hematologic/Lymphatic: No Symptoms Reported Past Vvrpuls-Wzdfjk-Ouyuoq Hx Past Med/Social Hx: Reviewed Nursing Past Med/Soc Hx Patient Social History Alcohol Use: Denies Use Recreational Drug Use: No Smoking Status: Former Smoker Type Used: Cigarettes Former Smoker, Quit: Jun 27, 2008 Recent Foreign Travel: No Contact w/Someone Who Travel: No Recent Infectious Disease Expo: No Recent Hopitalizations: No Immunizations Up To Date Tetanus Booster (TDap): More than 5yrs PED Vaccines UTD: No Date of Pneumonia Vaccine: Mar 25, 2015 Date of Influenza Vaccine: Mar 25, 2017 Seasonal Allergies Seasonal Allergies: Yes Past Medical History Surgeries: Yes (L SHOULDER, KNEE SURGERIES -SCOPE, CATARACT, T/A, APPY ) Appendectomy, Section, Eye Surgery, Hysterectomy, Orthopedic Respiratory: Yes (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, End stage COPD) Pneumonia, Pulmonary Embolism, COPD Currently Using CPAP: No Currently Using BIPAP: No Cardiac: Yes Hypertension Neurological: Yes (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, TIA ) TIA Reproductive Disorders: No Female Reproductive Disorders: Denies Sexually Transmitted Disease: No HIV/AIDS: No Genitourinary: Yes UTI-Chronic Gastrointestinal: Yes Gastroesophageal Reflux Musculoskeletal: No Arthritis Endocrine: No Cataract Loss of Vision: Right Hearing Impairment: Denies Cancer: Yes ( hysterectomy, ) Cervical What Type of Treatment Did You: Surgical Intervention Psychosocial: Yes Anxiety, Depression Integumentary: No Blood Disorders: No Adverse Reaction/Blood Tranf: No Family Medical History Arthritis 19 FATHER Asthma DAUGHTER Cancer (brother of throat cancer) 19 MOTHER G8 SISTER Cardiovascular disease 19 FATHER Colon cancer 19 MOTHER Coronary thrombosis DAUGHTER Diabetes mellitus DAUGHTER Drug abuse DAUGHTER Headache disorder DAUGHTER Hypercholesterolemia DAUGHTER Hypertension DAUGHTER Myocardial infarction 19 MOTHER Psychosocial problem DAUGHTER Respiratory disorder DAUGHTER Stroke (father had stroke) Tuberculosis No Family History of: AIDS Abdominal aortic aneurysm [place]'s disease Alcoholism Alzheimer's disease Aphasia Cancer of mouth Cataracts Completed stroke Congenital disease Congenital heart disease Congenital heart disease (mother of copd and CHF) Cystic fibrosis Deafness or hearing loss Dementia Dysphasia Fibrocystic disease of breast Gastroenteritis Glaucoma Infertility Kidney disease Neoplasm Not obtainable due to adoption Osteoporosis Parkinson's disease Prostate cancer Seizure disorder Severe allergy Thyroid disease Visual disorder Physical Exam Vital Signs Vital Signs - First Documented 01/07/18 05:52 Temp 98.0 Pulse 111 Resp 20 B/P (MAP) 127/67 (87) Pulse Ox 88 O2 Delivery Nasal Cannula O2 Flow Rate 3.00 Capillary Refill : Less Than 3 Seconds General Appearance: WD/WN, moderate distress HEENT: normal ENT inspection Neck: full range of motion, supple Cardiovascular: regular rate, rhythm Respiratory: decreased breath sounds, wheezing Gastrointestinal: normal bowel sounds, non tender, soft Back: normal inspection Extremities: normal range of motion, non-tender, normal inspection Neurologic/Psychiatric: no motor/sensory deficits, alert, normal mood/affect, oriented x 3 Skin: other (diffuse erythematous noted to the patient's skin.) Skin Problem Location: generalized Skin Problem Character: erythema Progress/Results/Core Measures Results/Orders My Orders Orders - NERI HENRY MD Methylprednisolone Sod Succ (Solu-Medrol (01/07/18 07:45) Medications Given in ED Current Medications Medications Dose Ordered Sig/Yannick Route Start Time Stop Time Status Last Admin Dose Admin Albuterol/ Ipratropium 3 ml ONCE ONCE INH 01/07/18 06:00 01/07/18 06:01 DC 01/07/18 06:01 3 ML Ranitidine HCl 50 mg/Sodium Chloride 52 ml @ 100 mls/hr ONCE ONCE IV 01/07/18 06:00 01/07/18 06:31 DC 01/07/18 06:05 100 MLS/HR Vital Signs/I&O 01/07/18 01/07/18 01/07/18 05:52 06:02 06:27 Temp 98.0 Pulse 111 Resp 20 B/P (MAP) 127/67 (87) Pulse Ox 88 90 95 O2 Delivery Nasal Cannula Nasal Cannula O2 Flow Rate 3.00 2.00 2.50 Blood Pressure Mean: 87 Progress Progress Note : Time: 07:35 Progress Note Patient received antihistamines IV. She was given a series of breathing treatments. The patient's symptoms gradually abated while we observed her in the emergency department. At time of discharge the patient had essentially no erythema or hives last on the skin. Her lungs were back to her normal state from her COPD. Patient was given 125 mg Solu-Medrol IV. Patient was significantly improved and was agreeable to outpatient therapy at home. I discussed the need for returning if her symptoms recurred. I gave the patient 3 days of steroids and H2 antagonist. I asked that she follow-up closely with her doctor with a telephone call today. Departure Impression Primary Impression: Allergic reaction Qualified Codes: T78.40XA - Allergy, unspecified, initial encounter Disposition: HOME, SELF-CARE Condition: Improved Departure-Patient Inst. Decision time for Depature: 07:42 Referrals: ANDREA CHU MD (PCP/Family) Primary Care Physician Patient Instructions: Anaphylaxis (DC) Add. Discharge Instructions: Prednisone, Zantac, and Benadryl for the next 3 days. Close follow-up with Dr. Chu. Return of any problems or questions. All discharge instructions reviewed with patient and/or family. Voiced understanding. NERI HENRY MD Jan 07, 2018 07:36
[2018-01-07] MEDS ORDERED: methylPREDNISolone 125 MG (Solu-MEDROL) VIAL IM ONE (07:45)
[2018-01-07 08:00] VITALS: BP 131/66
== END 2018-01-07 08:01 | disposition home or self-care (01) ==
LOC: EDUNIT# 05:50 → ER 05:51
DX: T78.40XA Allergy, unspecified, initial encounter (principal); J44.9 Chronic obstructive pulmonary disease, unspecified; I10 Essential (primary) hypertension; K21.9 Gastro-esophageal reflux disease without esophagitis; F41.9 Anxiety disorder, unspecified; F32.9 Major depressive disorder, single episode, unspecified; Z85.41 Personal history of malignant neoplasm of cervix uteri; Z86.73 Personal history of transient ischemic attack (TIA), and cerebral infarction without residual deficits; Z86.711 Personal history of pulmonary embolism; Z88.1 Allergy status to other antibiotic agents; Z88.8 Allergy status to other drugs, medicaments and biological substances; Z91.030 Bee allergy status; Z87.891 Personal history of nicotine dependence; Z90.49 Acquired absence of other specified parts of digestive tract; Z87.59 Personal history of other complications of pregnancy, childbirth and the puerperium; Z90.710 Acquired absence of both cervix and uterus
CPT/HCPCS: 94640; 96374; 96375

== ENCOUNTER → 2018-12-06 | Outpatient (CLI) | payer MEDICARE, MEDICAID ==
--- NOTE | 2018-12-06 12:39 | Diagnostic Imaging Report ---
EXAMINATION: Digital bilateral mammogram. INDICATION: Bilateral screening with 3-D tomosynthesis and cad. There are no prior studies available for comparison There are scattered fibroglandular densities in both breasts which could obscure a lesion. There is no primary or secondary sign of malignancy noted. However there does appear to be deodorant artifact on the MLO view of the right breast. I would recommend that this view be repeated. IMPRESSION: 1. There is no evidence of malignancy. 2. The MLO view of the right breast should be repeated. ACR BI-RADS Category 0: Incomplete. (Needs additional imaging evaluation). Result letter will be mailed to the patient. Note: At least 10% of breast cancer is not imaged by mammography. Dictated on workstation # [id number]
== END ==
LOC: RAD 10:18
PROVIDERS: ATTEND Internal Medicine
DX: Z12.31 Encounter for screening mammogram for malignant neoplasm of breast (principal)
CPT/HCPCS: 77067

== ENCOUNTER → 2019-01-14 | Outpatient (CLI) | payer MEDICARE, MEDICAID ==
--- NOTE | 2019-01-14 09:35 | Diagnostic Imaging Report ---
INDICATION: Screening for osteoporosis. COMPARISON: None. FINDINGS: The bone mineral density of hips and spine was measured. There are no prior studies available for comparison. The T score for the spine is -1.4. This indicates osteopenia. The total T score for the right hip is -1.3 and the T score for the right femoral neck is -1.7. The T score for the left femoral neck is -1.4. All of these values are within the range of osteopenia as well. The total T score for the left hip, however is -0.5 and this value is within normal limits. AP Spine L1-L4: [BMD (g/cm2): 1.027] [T-Score: -1.4] [Z-Score: -0.1] [BMD Previous: na] [BMD % Change: na] LT Hip Neck: [BMD (g/cm2): 0.840] [T-Score: -1.4] [Z-Score: 0.0] LT Hip Total: [BMD (g/cm2):0.940] [T-Score:-0.5] [Z-Score: 0.6] [BMD Previous: na] [BMD % Change: na] RT Hip Neck: [BMD (g/cm2):0.800] [T-Score:-1.7] [Z-Score:-0.3] RT Hip Total: [BMD (g/cm2):0.840] [T-score:-1.3] [Z-Score:-0.2] [BMD Previous:na] [BMD % Change:na] *Indicates significant change from prior examination based on 95% confidence level. World Health Organization criteria for BMD interpretation classify patients as Normal (T-score at or above -1.0), Osteopenic (T-score between -1.0 and -2.5) or Osteoporotic (T-score at or below -2.5). LIMITATIONS AND MODIFICATION: None. FRACTURE RISK (FRAX SCORE): The ten year probability of (%): Major Osteoporotic Fracture: [13.0] Hip Fracture: [2.0] IMPRESSION: 1. There is osteopenia of the spine, the right hip and both femoral necks. 2. The total T score for the left hip is within normal limits. 3. See below National Osteoporosis Foundation guidelines on when to potentially initiate pharmacologic therapy. Based on the National Osteoporosis Foundation Guidelines, pharmacologic treatment should be initiated in any of the following, unless clinical conditions suggest otherwise: * Any patient with prior fragility fracture of the hip or vertebrae. A spine fracture indicates 5X risk for subsequent spine fracture and 2X risk for subsequent hip fracture. * Osteoporosis (T-score <-2.5). * Postmenopausal women and men age 50 and older with low bone mass/osteopenia (T-score between -1.0 and -2.5) by DXA and 10-year major osteoporotic fracture greater than 20% or a 10-year probability of hip fracture greater than 3%. These fracture risks are supplied above in the FRAX score, if applicable. * Clinician judgement and/or patient preferences may indicate treatment for people with 10-year fracture probabilities above or below these levels. Dictated by: Dictated on workstation # [id number]
--- NOTE | 2019-01-14 10:48 | Diagnostic Imaging Report ---
Right screening mammogram Indication: Deodorant artifact The prior mammogram of 12/06/2018 noted deodorant artifact on the MLO view of the right breast. That view was repeated today. The deodorant artifact is no longer evident. There is no primary or secondary sign of malignancy identified. Impression: There is no evidence for malignancy. ACR BI-RADS Category 1: Negative. Result letter will be mailed to the patient. Note: At least 10% of breast cancer is not imaged by mammography. Dictated by: Dictated on workstation # [id number]
== END ==
LOC: RAD 08:31
PROVIDERS: ATTEND Internal Medicine
DX: Z12.31 Encounter for screening mammogram for malignant neoplasm of breast (principal); Z13.820 Encounter for screening for osteoporosis; M85.89 Other specified disorders of bone density and structure, multiple sites
CPT/HCPCS: 77080

== ENCOUNTER 2019-07-14 11:13 | Emergency (ER) | payer MEDICARE, MEDICAID ==
[~2019-07-14] VITALS: Ht 160 cm; Wt 75.0 kg
[~2019-07-14 11:13] MED LIST changes: +SIMV40TA25 PO; -SIMV40TA4 PO
[2019-07-14] MEDS ORDERED: NS IV 1000 ML 1,000 ML IV SCH ×2 (11:41→13:15)
[2019-07-14 11:53] LABS: BASOPHILS % (AUTO) 0 % (0-10); EOSINOPHILS # (AUTO) 0.3 10^3/uL (0.0-0.3); EOSINOPHILS % (AUTO) 2 % (0-10); HEMATOCRIT 41 % (35-52); HEMOGLOBIN 12.2 G/DL (11.5-16.0); LYMPHOCYTES # (AUTO) 1.7 X 10^3 (1.0-4.0); LYMPHOCYTES % (AUTO) 11 % (12-44); MEAN CORPUSCULAR HEMOGLOBIN 27 PG (25-34); MEAN CORPUSCULAR HGB CONC 30 G/DL (32-36); MEAN CORPUSCULAR VOLUME 90 FL (80-99); MEAN PLATELET VOLUME 10.7 FL (7.4-10.4); MONOCYTES # (AUTO) 0.9 X 10^3 (0.0-1.0); MONOCYTES % (AUTO) 6 % (0-12); NEUTROPHILS # (AUTO) 12.9 X 10^3 (1.8-7.8); NEUTROPHILS % (AUTO) 82 % (42-75); PLATELET COUNT 232 10^3/uL (130-400); RED CELL DISTRIBUTION WIDTH 13.7 % (10.0-14.5); WHITE BLOOD COUNT 15.7 10^3/uL (4.3-11.0)
[2019-07-14] MEDS ORDERED: RT-ALBUTEROL/IPRATROPIUM 3 ML (DUONEB) VIAL INH ONE (12:00)
[2019-07-14 12:04] LABS: ALANINE AMINOTRANSFERASE 23 U/L (0-55); ALBUMIN 4.2 GM/DL (3.2-4.5); ALKALINE PHOSPHATASE 135 U/L (40-136); BILIRUBIN,TOTAL 0.4 MG/DL (0.1-1.0); BUN/CREATININE RATIO 11; CARBON DIOXIDE 31 MMOL/L (21-32); CHLORIDE 99 MMOL/L (98-107); CREATININE SERUM 0.87 MG/DL (0.60-1.30); GFR ESTIMATED > 60; GLUCOSE 154 MG/DL (70-105); SODIUM 142 MMOL/L (135-145)
[2019-07-14 12:12] LABS: FIBRIN DEGRADATION PRODUCTS <= 0.27 UG/ML (0.00-0.49); INR 0.9 (0.8-1.4); PARTIAL THROMBOPLASTIN TIME 30 SEC (24-35); PROTHROMBIN TIME PATIENT 12.1 SEC (12.2-14.7)
[2019-07-14 12:22] LABS: BAND NEUTROPHILS 3 %; EOSINOPHILS % (MANUAL) 2 %; LYMPHOCYTES % (MANUAL) 13 %; MONOCYTES % (MANUAL) 2 %; NEUTROPHILS % (MANUAL) 80 %
[2019-07-14 12:23] LABS: RBC MORPH NORMAL
--- NOTE | 2019-07-14 12:28 | Diagnostic Imaging Report ---
HISTORY: Shortness of breath and coughing. COMPARISON: 05/29/2017 FINDINGS: Single frontal view of the chest. Minimal opacities of the lung bases likely represent scarring as they appear stable since 2017. No new consolidation is seen. There is no pleural effusion or pneumothorax. The cardiac silhouette is stable in size. IMPRESSION: 1. Bibasilar scarring with no acute pulmonary abnormality seen. Dictated by: Dictated on workstation # [id number]
[2019-07-14 13:21] LABS: BILIRUBIN,URINE NEGATIVE (NEGATIVE); CLARITY,URINE CLEAR; COLOR,URINE YELLOW; GLUCOSE, URINE (UA) NEGATIVE (NEGATIVE); KETONES,URINE NEGATIVE (NEGATIVE); LEUKOCYTE ESTERASE ,URINE NEGATIVE (NEGATIVE); NITRITE,URINE NEGATIVE (NEGATIVE); PROTEIN,URINE NEGATIVE (NEGATIVE)
[2019-07-14 13:36] LABS: BACTERIA,URINE TRACE /HPF; SQUAMOUS EPITHELIAL CELL,UR RARE /HPF; WBC,URINE 0-2 /HPF
[2019-07-14] MEDS ORDERED: RT-ALBUINH IH (14:04)
[2019-07-14] MEDS ORDERED: PRD20T PO (14:04)
[2019-07-14] MEDS ORDERED: DOXY100T2 PO (14:04)
[2019-07-14] MEDS ORDERED: BENZ100C18 PO (14:04)
--- NOTE | 2019-07-14 14:04 | ED Cough/URI ---
General Chief Complaint: Respiratory Problems Stated Complaint: FEVER;SOA Nursing Triage Note: PT. TO FT 2 @1117 WITH C/O SOA SINCE LAST SUNDAY. DENIES FEVER. C/O COUGHING SINCE THAT TIME. TO EXAM ROOM 3 WITH CHARU MASTERSON ET THIS RN ET DAUGHTER AT SIDE. Sepsis Screen: No Definite Risk Source: patient Exam Limitations: no limitations History of Present Illness Date Seen by Provider: Jul 14, 2019 Time Seen by Provider: 11:40 Initial Comments 61-year-old female who presents to emergency room with complaints of shortness of air that started last with a productive cough. He denies fevers, lightheadedness, chest pain. She reports that she is prone to pneumonia and has had a history of this. She is alert and oriented in no distress on arrival to the emergency room. Allergies and Home Medications Allergies Coded Allergies: levofloxacin (Verified Allergy, Severe, SEVERE SWELLING OF KNEES, 05/28/17) zolpidem (Verified Allergy, Unknown, 05/28/17) Uncoded Allergies: HONEY BEES (Allergy, Severe, ANAPHYLAXIS, 08/07/14) Home Medications Albuterol Sulfate 18 Gm Hfa.aer.ad, 2 PUFF INH Q6H PRN for SHORTNESS OF BREATH, (Reported) Albuterol Sulfate 1 Puff Puff, 2 PUFF IH Q4H 1 PUFF = 90 MCG Prescribed by: SUKHDEV GUTIERREZ on 07/14/19 140 Alprazolam 1 Mg Tablet, 1 MG PO BID, (Reported) Azithromycin 250 Mg Tablet, 250 MG PO DAILY Prescribed by: SUZY ESPINOZA on 05/31/17 09 Benzonatate 100 Mg Capsule, 100 MG PO TID Prescribed by: SUKHDEV GUTIERREZ on 07/14/19 140 Calcium Carbonate 300 Mg Tab.chew, 300 MG PO QID PRN for HEARTBURN, (Reported) Doxycycline Hyclate 100 Mg Tablet, 100 MG PO BID Prescribed by: SUKHDEV GUTIERREZ on 07/14/19 140 Fluconazole 150 Mg Tablet, 150 MG PO ONCE Prescribed by: SUZY ESPINOZA on 05/31/17 09 Fluticasone/Salmeterol 1 Each Blst.w.dev, 1 PUFF IH BID, (Reported) Hydrocodone Bit/Acetaminophen 1 Each Tablet, 1 TAB PO Q6H PRN for PAIN-MODERATE, (Reported) Losartan/Hydrochlorothiazide 1 Each Tablet, 0.5 TAB PO DAILY, (Reported) Potassium Chloride 10 Meq Tablet.er, 10 MEQ PO DAILY PRN for CRAMPS, (Reported) LAST FILLED #30 10-05-16 Prednisone 20 Mg Tab, 20 MG PO DAILY Take 3 tabs(60mg)daily,decrease by 1/2 tab(10mg)every other day. Prescribed by: SUZY ESPINOZA on 05/31/17 0906 Prednisone 20 Mg Tab, 40 MG PO DAILY Prescribed by: SUKHDEV GUTIERREZ on 07/14/19 1404 Sertraline HCl 50 Mg Tablet, 50 MG PO DAILY, (Reported) Past Iuyidiw-Wvnebm-Oxxpmi Hx Patient Social History Type Used: Cigarettes Former Smoker, Quit: Jun 27, 2008 Recent Foreign Travel: No Contact w/Someone Who Travel: No Recent Infectious Disease Expo: No Recent Hopitalizations: No Immunizations Up To Date Tetanus Booster (TDap): More than 5yrs PED Vaccines UTD: No Date of Pneumonia Vaccine: Mar 25, 2015 Date of Influenza Vaccine: Mar 25, 2017 Seasonal Allergies Seasonal Allergies: Yes Past Medical History Surgeries: Yes (L SHOULDER, KNEE SURGERIES -SCOPE, CATARACT, T/A, APPY ) Appendectomy, Section, Eye Surgery, Hysterectomy, Orthopedic Respiratory: Yes (2.5 L/NC, End stage COPD) Pneumonia, Pulmonary Embolism, COPD Currently Using CPAP: No Currently Using BIPAP: No Cardiac: Yes Hypertension Neurological: Yes (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, TIA ) TIA Reproductive Disorders: No Female Reproductive Disorders: Denies Sexually Transmitted Disease: No HIV/AIDS: No Genitourinary: Yes UTI-Chronic Gastrointestinal: Yes Gastroesophageal Reflux Musculoskeletal: No Arthritis Endocrine: No Cataract Loss of Vision: Right Hearing Impairment: Denies Cancer: Yes ( hysterectomy, ) Cervical What Type of Treatment Did You: Surgical Intervention Psychosocial: Yes Anxiety, Depression Integumentary: No Blood Disorders: No Adverse Reaction/Blood Tranf: No Family Medical History Arthritis 19 FATHER Asthma DAUGHTER Cancer (brother of throat cancer) 19 MOTHER G8 SISTER Cardiovascular disease 19 FATHER Colon cancer 19 MOTHER Coronary thrombosis DAUGHTER Diabetes mellitus DAUGHTER Drug abuse DAUGHTER Headache disorder DAUGHTER Hypercholesterolemia DAUGHTER Hypertension DAUGHTER Myocardial infarction 19 MOTHER Psychosocial problem DAUGHTER Respiratory disorder DAUGHTER Stroke (father had stroke) Tuberculosis No Family History of: AIDS Abdominal aortic aneurysm [place]'s disease Alcoholism Alzheimer's disease Aphasia Cancer of mouth Cataracts Completed stroke Congenital disease Congenital heart disease Congenital heart disease (mother of copd and CHF) Cystic fibrosis Deafness or hearing loss Dementia Dysphasia Fibrocystic disease of breast Gastroenteritis Glaucoma Infertility Kidney disease Neoplasm Not obtainable due to adoption Osteoporosis Parkinson's disease Prostate cancer Seizure disorder Severe allergy Thyroid disease Visual disorder Physical Exam Vital Signs - First Documented 07/14/19 07/14/19 11:26 12:08 Temp 37.1 Pulse 127 Resp 22 B/P (MAP) 139/69 (92) Pulse Ox 92 O2 Delivery Nasal Cannula O2 Flow Rate 3.00 Capillary Refill : Greater Than 3 Seconds Height: 5'4.00" Weight: 170lbs. 13.9oz. [id number]; 29.00 BMI Method:Stated Focused Exam Lactate Level 07/14/19 11:30: Lactic Acid Level 1.98 Lactic Acid Level Laboratory Tests Test 07/14/19 11:30 Lactic Acid Level 1.98 MMOL/L (0.50-2.00) Progress/Results/Core Measures Suspected Sepsis Recent Fever Within 48 Hours: No Infection Criteria Present: None New/Unexplained Altered Menta: No Sepsis Screen: No Definite Risk SIRS Temperature: Pulse: 127 Respiratory Rate: 22 Laboratory Tests 07/14/19 11:30: White Blood Count 15.7H Blood Pressure 139 /69 Mean: 92 07/14/19 11:30: Lactic Acid Level 1.98 Laboratory Tests 07/14/19 11:30: Creatinine 0.87, INR Comment 0.9, Platelet Count 232, Total Bilirubin 0.4 Results/Orders Lab Results Laboratory Tests Test 07/14/19 11:30 07/14/19 13:12 Range/Units White Blood Count 15.7 H 4.3-11.0 10^3/uL Red Blood Count 4.55 4.35-5.85 10^6/uL Hemoglobin 12.2 11.5-16.0 G/DL Hematocrit 41 35-52 % Mean Corpuscular Volume 90 80-99 FL Mean Corpuscular Hemoglobin 27 25-34 PG Mean Corpuscular Hemoglobin Concent 30 L 32-36 G/DL Red Cell Distribution Width 13.7 10.0-14.5 % Platelet Count 232 130-400 10^3/uL Mean Platelet Volume 10.7 H 7.4-10.4 FL Neutrophils (%) (Auto) 82 H 42-75 % Lymphocytes (%) (Auto) 11 L 12-44 % Monocytes (%) (Auto) 6 0-12 % Eosinophils (%) (Auto) 2 0-10 % Basophils (%) (Auto) 0 0-10 % Neutrophils # (Auto) 12.9 H 1.8-7.8 X 10^3 Lymphocytes # (Auto) 1.7 1.0-4.0 X 10^3 Monocytes # (Auto) 0.9 0.0-1.0 X 10^3 Eosinophils # (Auto) 0.3 0.0-0.3 10^3/uL Basophils # (Auto) 0.0 0.0-0.1 10^3/uL Neutrophils % (Manual) 80 % Lymphocytes % (Manual) 13 % Monocytes % (Manual) 2 % Eosinophils % (Manual) 2 % Band Neutrophils 3 % Blood Morphology Comment NORMAL Prothrombin Time 12.1 L 12.2-14.7 SEC INR Comment 0.9 0.8-1.4 Activated Partial Thromboplast Time 30 24-35 SEC D-Dimer <= 0.27 0.00-0.49 UG/ML Sodium Level 142 135-145 MMOL/L Potassium Level 4.0 3.6-5.0 MMOL/L Chloride Level 99 98-107 MMOL/L Carbon Dioxide Level 31 21-32 MMOL/L Anion Gap 12 5-14 MMOL/L Blood Urea Nitrogen 10 7-18 MG/DL Creatinine 0.87 0.60-1.30 MG/DL Estimat Glomerular Filtration Rate > 60 BUN/Creatinine Ratio 11 Glucose Level 154 H 70-105 MG/DL Lactic Acid Level 1.98 0.50-2.00 MMOL/L Calcium Level 9.0 8.5-10.1 MG/DL Corrected Calcium 8.8 8.5-10.1 MG/DL Total Bilirubin 0.4 0.1-1.0 MG/DL Aspartate Amino Transf (AST/SGOT) 29 5-34 U/L Alanine Aminotransferase (ALT/SGPT) 23 0-55 U/L Alkaline Phosphatase 135 40-136 U/L Troponin I < 0.028 <0.028 NG/ML B-Type Natriuretic Peptide 51.2 <100.0 PG/ML Total Protein 7.0 6.4-8.2 GM/DL Albumin 4.2 3.2-4.5 GM/DL Urine Color YELLOW Urine Clarity CLEAR Urine pH 6.0 5-9 Urine Specific [place] 1.015 L 1.016-1.022 Urine Protein NEGATIVE NEGATIVE Urine Glucose (UA) NEGATIVE NEGATIVE Urine Ketones NEGATIVE NEGATIVE Urine Nitrite NEGATIVE NEGATIVE Urine Bilirubin NEGATIVE NEGATIVE Urine Urobilinogen 0.2 < = 1.0 MG/DL Urine Leukocyte Esterase NEGATIVE NEGATIVE Urine RBC (Auto) 2+ H NEGATIVE Urine RBC 5-10 H /HPF Urine WBC 0-2 /HPF Urine Squamous Epithelial Cells RARE /HPF Urine Crystals NONE /LPF Urine Bacteria TRACE /HPF Urine Casts NONE /LPF Urine Mucus NEGATIVE /LPF Urine Culture Indicated CULTURE PENDING Micro Results Microbiology 07/14/19 Influenza Types A,B Antigen (ADRIAN) - Final, Complete My Orders Orders - SUKHDEV GUTIERREZ Cbc With Automated Diff (07/14/19 11:41) Comprehensive Metabolic Panel (07/14/19 11:41) BNP (07/14/19 11:41) Blood Culture (07/14/19 11:41) Fibrin Degradation Products (07/14/19 11:41) Ekg Tracing (07/14/19 11:41) O2 (07/14/19 11:41) Ed Iv/Invasive Line Start (07/14/19 11:41) Sputum Culture (07/14/19 11:41) Monitor-Rhythm Ecg Trace Only (07/14/19 11:41) Chest 1 View, Ap/Pa Only (07/14/19 11:41) Urinalysis (07/14/19 11:41) Urine Culture (07/14/19 11:41) Protime With Inr (07/14/19 11:41) Partial Thromboplastin Time (07/14/19 11:41) Troponin I (07/14/19 11:41) Vital Signs Adult Sepsis Patie Q15M (07/14/19 11:41) Remove Rings In Anticipation O (07/14/19 11:41) Lactic Acid Analyzer (07/14/19 11:41) Ns Iv 1000 Ml (Sodium Chloride 0.9%) (07/14/19 11:41) Influenza A And B Antigens (07/14/19 11:46) Albuterol/Ipra Inhalation Soln (Duoneb I (07/14/19 12:00) Svn Small Volume Nebulizer (07/14/19 11:53) Manual Differential (07/14/19 11:30) Ns Iv 1000 Ml (Sodium Chloride 0.9%) (07/14/19 13:15) Medications Given in ED Current Medications Medications Dose Ordered Sig/Yannick Route Start Time Stop Time Status Last Admin Dose Admin Albuterol/ Ipratropium 3 ml ONCE ONCE INH 07/14/19 12:00 07/14/19 12:01 DC 07/14/19 12:07 3 ML Vital Signs/I&O 07/14/19 07/14/19 11:26 12:08 Temp 37.1 Pulse 127 Resp 22 B/P (MAP) 139/69 (92) Pulse Ox 92 95 O2 Delivery Nasal Cannula Nasal Cannula O2 Flow Rate 3.00 Capillary Refill : Greater Than 3 Seconds Blood Pressure Mean: 92 Departure Impression Primary Impression: Bronchitis Disposition: HOME, SELF-CARE Condition: Stable/Unchanged Departure-Patient Inst. Decision time for Depature: 14:01 Referrals: ANDREA CHU MD (PCP/Family) Primary Care Physician Patient Instructions: Acute Bronchitis Add. Discharge Instructions: Take medications as directed. Follow-up with your primary care provider within 1 week for recheck. Return back to the emergency room for worsening symptoms or concerns as needed. All discharge instructions reviewed with patient and/or family. Voiced understanding. Scripts Nystatin (Nystatin) 100,000 Unit/1 Ml Oral.susp 4 ML PO Q4H for 7 Days, #112 ML Prov: BERNOT,SUKHDEV 07/14/19 Benzonatate (TESSALON PERLES) 100 Mg Capsule 100 MG PO TID for 7 Days, #21 CAP Prov: BERNOT,SUKHDEV 07/14/19 Prednisone (Prednisone) 20 Mg Tab 40 MG PO DAILY for 5 Days, #5 TAB 0 Refills Prov: BERNOT,SUKHDEV 07/14/19 Albuterol Sulfate (PROAIR HFA) 1 Puff Puff 2 PUFF IH Q4H for 30 Days, #1 INHALER 1 PUFF = 90 MCG Prov: BERNOT,SUKHDEV 07/14/19 Doxycycline Hyclate (Doxycycline Hyclate) 100 Mg Tablet 100 MG PO BID for 7 Days, #14 TAB 0 Refills Prov: BERNOT,SUKHDEV 07/14/19 ESTHELA GUTIERREZIS Jul 14, 2019 14:04
[2019-07-14] MEDS ORDERED: NYST1000 PO (14:47)
[2019-07-14 15:00] VITALS: BP 137/75
== END 2019-07-14 14:57 | disposition home or self-care (01) ==
LOC: EDUNIT# 11:13 → ER 11:14
DX: J40 Bronchitis, not specified as acute or chronic (principal); J44.0 Chronic obstructive pulmonary disease with (acute) lower respiratory infection; I10 Essential (primary) hypertension; F41.9 Anxiety disorder, unspecified; F32.9 Major depressive disorder, single episode, unspecified; K21.9 Gastro-esophageal reflux disease without esophagitis; Z99.81 Dependence on supplemental oxygen; Z86.73 Personal history of transient ischemic attack (TIA), and cerebral infarction without residual deficits; Z87.440 Personal history of urinary (tract) infections; Z88.1 Allergy status to other antibiotic agents; Z88.8 Allergy status to other drugs, medicaments and biological substances; Z79.51 Long term (current) use of inhaled steroids; Z79.52 Long term (current) use of systemic steroids; Z87.891 Personal history of nicotine dependence; Z90.49 Acquired absence of other specified parts of digestive tract; Z90.710 Acquired absence of both cervix and uterus; Z86.711 Personal history of pulmonary embolism; Z85.41 Personal history of malignant neoplasm of cervix uteri; Z82.49 Family history of ischemic heart disease and other diseases of the circulatory system; Z80.8 Family history of malignant neoplasm of other organs or systems; Z80.0 Family history of malignant neoplasm of digestive organs
CPT/HCPCS: 36415; 71045; 80053; 81000; 83605; 83880; 84484; 85007; 85027; 85379; 85610; 85730; 87040; 87070; 87077; 87088; 87185; 87205; 87804; 93005; 93041; 94640; 96360

== ENCOUNTER 2020-03-09 03:02 | Observation (INO) | payer MEDICARE, MEDICAID ==
[~2020-03-09] VITALS: Ht 162.6 cm; Wt 67.8 kg
[~2020-03-09 03:02] MED LIST changes: +DOXY100T2 PO
[2020-03-09] MEDS ORDERED: RX-ALBUTEROL INHALER (VENTOLIN HFA) 18 GM IH STA (03:38)
[2020-03-09] MEDS ORDERED: LACTATED RINGERS 1,000 ML IV ONE (03:38)
[2020-03-09] MEDS ORDERED: methylPREDNISolone 125 MG (Solu-MEDROL) VIAL IVP ONE (03:45)
[2020-03-09 03:52] LABS: BASOPHILS % (AUTO) 0 % (0-10); EOSINOPHILS # (AUTO) 0.2 10^3/uL (0.0-0.3); EOSINOPHILS % (AUTO) 2 % (0-10); HEMATOCRIT 45 % (35-52); HEMOGLOBIN 13.4 G/DL (11.5-16.0); LYMPHOCYTES # (AUTO) 1.9 X 10^3 (1.0-4.0); LYMPHOCYTES % (AUTO) 17 % (12-44); MEAN CORPUSCULAR HEMOGLOBIN 27 PG (25-34); MEAN CORPUSCULAR HGB CONC 30 G/DL (32-36); MEAN CORPUSCULAR VOLUME 90 FL (80-99); MEAN PLATELET VOLUME 10.6 FL (7.4-10.4); MONOCYTES # (AUTO) 0.4 X 10^3 (0.0-1.0); MONOCYTES % (AUTO) 3 % (0-12); NEUTROPHILS # (AUTO) 8.8 X 10^3 (1.8-7.8); NEUTROPHILS % (AUTO) 78 % (42-75); PLATELET COUNT 230 10^3/uL (130-400); WHITE BLOOD COUNT 11.3 10^3/uL (4.3-11.0)
[2020-03-09] MEDS ORDERED: KETOROLAC 30 MG/ML VIAL IVP ONE (04:00)
[2020-03-09] MEDS ORDERED: ONDANSETRON 4 MG/2 ML (SDV) Z0FRAN IVP ONE (04:00)
[2020-03-09 04:27] LABS: BILIRUBIN,URINE NEGATIVE (NEGATIVE); CLARITY,URINE CLEAR; COLOR,URINE YELLOW; GLUCOSE, URINE (UA) NEGATIVE (NEGATIVE); KETONES,URINE NEGATIVE (NEGATIVE); LEUKOCYTE ESTERASE ,URINE NEGATIVE (NEGATIVE); NITRITE,URINE NEGATIVE (NEGATIVE); PROTEIN,URINE NEGATIVE (NEGATIVE)
[2020-03-09 04:38] LABS: BACTERIA,URINE NEGATIVE /HPF; WBC,URINE 0-2 /HPF
[2020-03-09 04:43] LABS: FIBRIN DEGRADATION PRODUCTS 0.09 UG/ML (0.00-0.49); INR 0.9 (0.8-1.4); PROTHROMBIN TIME PATIENT 12.6 SEC (12.2-14.7)
[2020-03-09 04:45] LABS: ALBUMIN 4.3 GM/DL (3.2-4.5); CHLORIDE 101 MMOL/L (98-107); SODIUM 141 MMOL/L (135-145)
[2020-03-09 04:46] LABS: CALCIUM 8.8 MG/DL (8.5-10.1)
[2020-03-09 04:47] LABS: GLUCOSE 123 MG/DL (70-105)
[2020-03-09 04:48] LABS: TOTAL PROTEIN 7.2 GM/DL (6.4-8.2)
[2020-03-09 04:49] LABS: BILIRUBIN,TOTAL 0.2 MG/DL (0.1-1.0); CARBON DIOXIDE 28 MMOL/L (21-32)
[2020-03-09 04:51] LABS: ALKALINE PHOSPHATASE 115 U/L (40-136); CREATININE SERUM 0.92 MG/DL (0.60-1.30); GFR ESTIMATED > 60
[2020-03-09 04:52] LABS: BUN/CREATININE RATIO 11
[2020-03-09 04:54] LABS: ALANINE AMINOTRANSFERASE 13 U/L (0-55)
--- NOTE | 2020-03-09 05:24 | ED Respiratory ---
General Chief Complaint: Respiratory Problems Stated Complaint: FEVER,BODY ACHES Source: patient Exam Limitations: no limitations History of Present Illness Date Seen by Provider: Mar 09, 2020 Time Seen by Provider: 03:30 Initial Comments This 70-year-old woman with COPD dependent on oxygen supplementation presents to the emergency room with worsening shortness of breath, cough, and acute headache. She has been using nebulizer treatments at home but has not used any yet this morning. With transition to her home oxygen 2 hour wall oxygen her saturations dropped into the 70s. She has very tight wheezing and basilar crackles. She denies any known exposures to COVID-19. Allergies and Home Medications Allergies Coded Allergies: levofloxacin (Verified Allergy, Severe, SEVERE SWELLING OF KNEES, 05/28/17) zolpidem (Verified Allergy, Unknown, 05/28/17) Uncoded Allergies: HONEY BEES (Allergy, Severe, ANAPHYLAXIS, 08/07/14) Home Medications Albuterol Sulfate 18 Gm Hfa.aer.ad, 2 PUFF INH Q6H PRN for SHORTNESS OF BREATH, (Reported) Albuterol Sulfate 1 Puff Puff, 2 PUFF IH Q4H 1 PUFF = 90 MCG Prescribed by: SUKHDEV GUTIERREZ on 07/14/19 1404 Alprazolam 1 Mg Tablet, 1 MG PO BID, (Reported) Azithromycin 250 Mg Tablet, 250 MG PO DAILY Prescribed by: SUZY ESPINOZA on 05/31/17 09 Benzonatate 100 Mg Capsule, 100 MG PO TID Prescribed by: SUKHDEV GUTIERREZ on 07/14/19 1404 Calcium Carbonate 300 Mg Tab.chew, 300 MG PO QID PRN for HEARTBURN, (Reported) Doxycycline Hyclate 100 Mg Tablet, 100 MG PO BID Prescribed by: SUKHDEV GUTIERREZ on 07/14/19 1404 Fluconazole 150 Mg Tablet, 150 MG PO ONCE Prescribed by: SUZY ESPINOZA on 05/31/17 09 Fluticasone/Salmeterol 1 Each Blst.w.dev, 1 PUFF IH BID, (Reported) Hydrocodone Bit/Acetaminophen 1 Each Tablet, 1 TAB PO Q6H PRN for PAIN-MODERATE, (Reported) Losartan/Hydrochlorothiazide 1 Each Tablet, 0.5 TAB PO DAILY, (Reported) Nystatin 100,000 Unit/1 Ml Oral.susp, 4 ML PO Q4H Prescribed by: SUKHDEV GUTIERREZ on 07/14/19 1447 Potassium Chloride 10 Meq Tablet.er, 10 MEQ PO DAILY PRN for CRAMPS, (Reported) LAST FILLED #30 10-05-16 Prednisone 20 Mg Tab, 20 MG PO DAILY Take 3 tabs(60mg)daily,decrease by 1/2 tab(10mg)every other day. Prescribed by: SUZY ESPINOZA on 05/31/17 0906 Prednisone 20 Mg Tab, 40 MG PO DAILY Prescribed by: SUKHDEV GUTIERREZ on 07/14/19 1404 Sertraline HCl 50 Mg Tablet, 50 MG PO DAILY, (Reported) Patient Home Medication List Home Medication List Reviewed: Yes Review of Systems Review of Systems Constitutional: no symptoms reported EENTM: no symptoms reported Respiratory: see HPI Cardiovascular: no symptoms reported Gastrointestinal: no symptoms reported Genitourinary: no symptoms reported : No Musculoskeletal: no symptoms reported Skin: no symptoms reported Psychiatric/Neurological: See HPI Hematologic/Lymphatic: No Symptoms Reported Past Jsbrcbu-Tylqgi-Rpwxnm Hx Past Med/Social Hx: Reviewed Nursing Past Med/Soc Hx Patient Social History Alcohol Use: Denies Use Recreational Drug Use: No Smoking Status: Former Smoker Type Used: Cigarettes Former Smoker, Quit: Jun 27, 2008 Recent Foreign Travel: No Contact w/Someone Who Travel: No Recent Infectious Disease Expo: No Recent Hopitalizations: No Immunizations Up To Date Tetanus Booster (TDap): More than 5yrs PED Vaccines UTD: No Date of Pneumonia Vaccine: Mar 25, 2015 Date of Influenza Vaccine: Mar 25, 2017 Seasonal Allergies Seasonal Allergies: Yes Past Medical History Surgeries: Yes (L SHOULDER, KNEE SURGERIES -SCOPE, CATARACT, T/A, APPY ) Appendectomy, Section, Eye Surgery, Hysterectomy, Orthopedic Respiratory: Yes (2.5 L/NC, End stage COPD) Pneumonia, Pulmonary Embolism, COPD Currently Using CPAP: No Currently Using BIPAP: No Cardiac: Yes Hypertension Neurological: Yes (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, TIA ) TIA Reproductive Disorders: No Female Reproductive Disorders: Denies Sexually Transmitted Disease: No HIV/AIDS: No Genitourinary: Yes UTI-Chronic Gastrointestinal: Yes Gastroesophageal Reflux Musculoskeletal: Yes Arthritis Endocrine: No HEENT: Yes Cataract Loss of Vision: Right Hearing Impairment: Denies Cancer: Yes ( hysterectomy, ) Cervical Did You Recieve Any Treatments: Yes What Type of Treatment Did You: Surgical Intervention Psychosocial: Yes Anxiety, Depression Integumentary: No Blood Disorders: No Adverse Reaction/Blood Tranf: No Family Medical History Reviewed Nursing Family Hx Arthritis 19 FATHER Asthma DAUGHTER Cancer (brother of throat cancer) 19 MOTHER G8 SISTER Cardiovascular disease 19 FATHER Colon cancer 19 MOTHER Coronary thrombosis DAUGHTER Diabetes mellitus DAUGHTER Drug abuse DAUGHTER Headache disorder DAUGHTER Hypercholesterolemia DAUGHTER Hypertension DAUGHTER Myocardial infarction 19 MOTHER Psychosocial problem DAUGHTER Respiratory disorder DAUGHTER Stroke (father had stroke) Tuberculosis No Family History of: AIDS Abdominal aortic aneurysm [place]'s disease Alcoholism Alzheimer's disease Aphasia Cancer of mouth Cataracts Completed stroke Congenital disease Congenital heart disease Congenital heart disease (mother of copd and CHF) Cystic fibrosis Deafness or hearing loss Dementia Dysphasia Fibrocystic disease of breast Gastroenteritis Glaucoma Infertility Kidney disease Neoplasm Not obtainable due to adoption Osteoporosis Parkinson's disease Prostate cancer Seizure disorder Severe allergy Thyroid disease Visual disorder Physical Exam Vital Signs - First Documented 03/09/20 03:18 Temp 37.7 Pulse 120 Resp 26 B/P (MAP) 173/86 (115) Pulse Ox 96 O2 Delivery Nasal Cannula O2 Flow Rate 4.00 Capillary Refill : Less Than 3 Seconds Height: 5'4.00" Weight: 170lbs. 13.9oz. 77.292615pp; 29.00 BMI Method:Stated General Appearance: WD/WN, no apparent distress HEENT: PERRL/EOMI, normal ENT inspection Neck: normal inspection Respiratory: no respiratory distress, no accessory muscle use, decreased breath sounds, crackles (bibasilar), wheezing Cardiovascular: no edema, no murmur, tachycardia Gastrointestinal: non tender, soft Extremities: normal inspection, no pedal edema Neurologic/Psychiatric: burr filer II-XII nml as tested, no motor/sensory deficits, alert, normal mood/affect, oriented x 3 Skin: normal color, warm/dry Focused Exam Lactate Level 03/09/20 03:30: Lactic Acid Level 1.27 Lactic Acid Level Laboratory Tests Test 03/09/20 03:30 Lactic Acid Level 1.27 MMOL/L (0.50-2.00) Progress/Results/Core Measures Suspected Sepsis Recent Fever Within 48 Hours: No Infection Criteria Present: None New/Unexplained Altered Menta: No Sepsis Screen: No Definite Risk SIRS Temperature: Pulse: 120 Respiratory Rate: 26 Laboratory Tests 03/09/20 03:30: White Blood Count 11.3H Blood Pressure 173 /86 Mean: 115 03/09/20 03:30: Lactic Acid Level 1.27 Laboratory Tests 03/09/20 03:30: Creatinine 0.92, INR Comment 0.9, Platelet Count 230, Total Bilirubin 0.2 Results/Orders Lab Results Laboratory Tests Test 03/09/20 03:30 03/09/20 03:40 03/09/20 04:10 Range/Units White Blood Count 11.3 H 4.3-11.0 10^3/uL Red Blood Count 4.98 4.35-5.85 10^6/uL Hemoglobin 13.4 11.5-16.0 G/DL Hematocrit 45 35-52 % Mean Corpuscular Volume 90 80-99 FL Mean Corpuscular Hemoglobin 27 25-34 PG Mean Corpuscular Hemoglobin Concent 30 L 32-36 G/DL Red Cell Distribution Width 13.5 10.0-14.5 % Platelet Count 230 130-400 10^3/uL Mean Platelet Volume 10.6 H 7.4-10.4 FL Neutrophils (%) (Auto) 78 H 42-75 % Lymphocytes (%) (Auto) 17 12-44 % Monocytes (%) (Auto) 3 0-12 % Eosinophils (%) (Auto) 2 0-10 % Basophils (%) (Auto) 0 0-10 % Neutrophils # (Auto) 8.8 H 1.8-7.8 X 10^3 Lymphocytes # (Auto) 1.9 1.0-4.0 X 10^3 Monocytes # (Auto) 0.4 0.0-1.0 X 10^3 Eosinophils # (Auto) 0.2 0.0-0.3 10^3/uL Basophils # (Auto) 0.0 0.0-0.1 10^3/uL Prothrombin Time 12.6 12.2-14.7 SEC INR Comment 0.9 0.8-1.4 Activated Partial Thromboplast Time 31 24-35 SEC D-Dimer 0.09 0.00-0.49 UG/ML Sodium Level 141 135-145 MMOL/L Potassium Level 4.0 3.6-5.0 MMOL/L Chloride Level 101 98-107 MMOL/L Carbon Dioxide Level 28 21-32 MMOL/L Anion Gap 12 5-14 MMOL/L Blood Urea Nitrogen 10 7-18 MG/DL Creatinine 0.92 0.60-1.30 MG/DL Estimat Glomerular Filtration Rate > 60 BUN/Creatinine Ratio 11 Glucose Level 123 H 70-105 MG/DL Lactic Acid Level 1.27 0.50-2.00 MMOL/L Calcium Level 8.8 8.5-10.1 MG/DL Corrected Calcium 8.6 8.5-10.1 MG/DL Total Bilirubin 0.2 0.1-1.0 MG/DL Aspartate Amino Transf (AST/SGOT) 18 5-34 U/L Alanine Aminotransferase (ALT/SGPT) 13 0-55 U/L Alkaline Phosphatase 115 40-136 U/L Lactate Dehydrogenase 249 H 125-220 U/L C-Reactive Protein High Sensitivity 1.52 H 0.00-0.50 MG/DL Total Protein 7.2 6.4-8.2 GM/DL Albumin 4.3 3.2-4.5 GM/DL Procalcitonin 0.02 <0.10 NG/ML Coronavirus 2019 ([facility]) Negative Negative Urine Color YELLOW Urine Clarity CLEAR Urine pH 6.0 5-9 Urine Specific [place] 1.010 L 1.016-1.022 Urine Protein NEGATIVE NEGATIVE Urine Glucose (UA) NEGATIVE NEGATIVE Urine Ketones NEGATIVE NEGATIVE Urine Nitrite NEGATIVE NEGATIVE Urine Bilirubin NEGATIVE NEGATIVE Urine Urobilinogen 0.2 < = 1.0 MG/DL Urine Leukocyte Esterase NEGATIVE NEGATIVE Urine RBC (Auto) 2+ H NEGATIVE Urine RBC 5-10 H /HPF Urine WBC 0-2 /HPF Urine Squamous Epithelial Cells 2-5 /HPF Urine Crystals NONE /LPF Urine Bacteria NEGATIVE /HPF Urine Casts NONE /LPF Urine Mucus NEGATIVE /LPF Urine Culture Indicated CULTURE PENDING Micro Results Microbiology 03/09/20 Influenza Types A,B Antigen (ADRIAN) - Final, Complete My Orders Orders - HANNA MADDOX MD Cbc With Automated Diff (03/09/20 03:38) Comprehensive Metabolic Panel (03/09/20 03:38) Blood Culture (03/09/20 03:38) Sputum Culture (03/09/20 03:38) Urinalysis (03/09/20 03:38) Urine Culture (03/09/20 03:38) Protime With Inr (03/09/20 03:38) Partial Thromboplastin Time (03/09/20 03:38) Chest 1 View, Ap/Pa Only (03/09/20 03:38) Ed Iv/Invasive Line Start (03/09/20 03:38) Ed Iv/Invasive Line Start (03/09/20 03:38) Vital Signs Adult Sepsis Patie Q15M (03/09/20 03:38) O2 (03/09/20 03:38) Remove Rings In Anticipation O (03/09/20 03:38) Lactic Acid Analyzer (03/09/20 03:38) Influenza A And B Antigens (03/09/20 03:38) Lactated Ringers (Lr 1000 Ml Iv Solution (03/09/20 03:38) Fibrin Degradation Products (03/09/20 03:38) Procalcitonin (Pct) (03/09/20 03:38) Hs C Reactive Protein (03/09/20 03:38) LDH (03/09/20 03:38) Covid 19 Inhouse Test (03/09/20 03:38) Methylprednisolone Sod Succ (Solu-Medrol (03/09/20 03:45) Rx-Albuterol Inhaler (Rx-Ventolin Hfa) (03/09/20 03:38) Ketorolac Injection (Toradol Injection) (03/09/20 04:00) Ondansetron Injection (Zofran Injectio (03/09/20 04:00) Coronavirus Sars-Cov-2 So 2018 (03/09/20 04:14) Medications Given in ED Current Medications Medications Dose Ordered Sig/Yannick Route Start Time Stop Time Status Last Admin Dose Admin Ketorolac Tromethamine 15 mg ONCE ONCE IVP 03/09/20 04:00 03/09/20 04:01 DC 03/09/20 04:11 15 MG Lactated Ringer's 1,000 ml @ 0 mls/hr Q0M ONCE IV 03/09/20 03:38 03/09/20 03:43 DC 03/09/20 03:47 0 MLS/HR Methylprednisolone Sodium Succinate 125 mg ONCE ONCE IVP 03/09/20 03:45 03/09/20 03:46 DC 03/09/20 03:48 125 MG Ondansetron HCl 8 mg ONCE ONCE IVP 03/09/20 04:00 03/09/20 04:01 DC 03/09/20 04:11 8 MG Vital Signs/I&O 03/09/20 03/09/20 03:18 03:30 Temp 37.7 Pulse 120 Resp 26 B/P (MAP) 173/86 (115) Pulse Ox 96 O2 Delivery Nasal Cannula Nasal Cannula O2 Flow Rate 4.00 3.00 Capillary Refill : Less Than 3 Seconds Blood Pressure Mean: 115 Progress Note : Progress Note Septic workup was pursued. Patient was treated with Solu-Medrol, albuterol inhaler, and IV fluids. Workup did not support pneumonia or pulmonary embolus. Patient is likely experiencing a fairly intense COPD exacerbation. Rapid COVID- 19 and influenza swabs were negative. The backup COVID-19 swab is pending. Toradol was given for headache and Zofran was given for nausea. Diagnostic Imaging Diagonstic Imaging: Xray Plain Films/CT/US/NM/MRI: chest (chest x-ray viewed by me. Report not yet available. Compared with prior. Chronic scarring noted with no acute changes. Hyperinflation.) Departure Communication (Admissions) Time/Spoke to Admitting Phy: 05:20 Dr. Lan Impression Primary Impression: COPD exacerbation Additional Impressions: Hypoxia Acute headache Qualified Codes: R51 - Headache Disposition: 09 ADMITTED INPATIENT Condition: Improved Admissions Decision to Admit Reason: Admit from ER (General) Decision to Admit/Date: Mar 09, 2020 Time/Decision to Admit Time: 03:45 Departure-Patient Inst. Referrals: ANDREA CHU MD (PCP/Family) Primary Care Physician HANNA MADDOX MD Mar 09, 2020 05:24
--- NOTE | 2020-03-09 06:00 | Diagnostic Imaging Report ---
CLINICAL INDICATION: Patient with fever, cough and congestion. Patient is in Covid precautions. EXAM: Portable chest x-ray upright view. COMPARISONS: Chest x-ray dated 07/14/2019. FINDINGS: Lungs/pleura: There is stable mild bibasilar atelectasis versus scarring. There is no interval lung infiltrate. There is no pneumothorax. There is no pleural effusion. Mediastinum: Unremarkable. Pulmonary vasculature: Unremarkable. Heart: Unremarkable. Bones/extrathoracic soft tissue: There are degenerative spurs involving the thoracic spine. IMPRESSION: Stable chest x-ray exam with no interval radiographic evidence of acute cardiopulmonary process. Stable mild bibasilar atelectasis versus scarring. Dictated by: Dictated on workstation # [id number]
--- NOTE | 2020-03-09 06:38 | NUR ---
PHONE REPORT RECEIVED FROM ZELALEM SANDERS IN ED AT THIS TIME.
--- NOTE | 2020-03-09 07:00 | NUR ---
TANO PARKER admitted to room 424-1, with an admitting diagnosis of COPD EXACERBATION, on 03/09/20 from [place] via , accompanied by .TANO PARKER introduced to surroundings, call light, bed controls, phone, TV, temperature control, lights, meal times, smoking policy, visitor policy, side rail policy, bathrooms and showers. Patient Rights given to patient in the handbook.TANO PARKER verbalizes understanding that [facility] is not responsible for the loss or damage to any personal effects or valuables that are kept in the patients posession during their hospitalization. TANO PARKER verbalizes understanding of Interdisciplinary Patient Education. Patient and/or family were informed about the Rapid Response Team and its purpose.
[2020-03-09 07:15] VITALS: BP 130/59
[2020-03-09] MEDS ORDERED: RT-ALBUTEROL INHALER HFA (VENTOLIN HFA) 18 GM IH PRN (07:45)
[2020-03-09] MEDS ORDERED: IBUPROFEN 600 MG (MOTRIN) TAB PO PRN (08:00)
[2020-03-09] MEDS ORDERED: CATHETER FLUSH 10 ML SYR IV PRN (08:00)
[2020-03-09] MEDS ORDERED: ONDANSETRON 4 MG/2 ML (SDV) Z0FRAN IV PRN (08:00)
[2020-03-09] MEDS: LACTATED RINGERS 1,000 ML IV SCH ×3 (09:12→23:41)
[2020-03-09 09:13] VITALS: BP 130/59
[2020-03-09] MEDS: ENOXAPARIN 40 MG/0.4 ML (LOVENOX) SYR SC SCH (09:15)
[2020-03-09] MEDS ORDERED: HYDR-3817 PO (11:11)
[2020-03-09] MEDS ORDERED: NALO4SPR (11:11)
[2020-03-09] MEDS ORDERED: ATOR20TA66 PO (11:11)
[2020-03-09] MEDS ORDERED: SERT100T8 PO (11:11)
[2020-03-09] MEDS ORDERED: AMLO5TAB9 PO (11:19)
[2020-03-09] MEDS ORDERED: DIPH25CA79 PO (11:19)
[2020-03-09] MEDS ORDERED: ASPI-808 PO (11:19)
[2020-03-09] MEDS ORDERED: POTA10CA43 PO (11:19)
[2020-03-09] MEDS ORDERED: FAMO40TA6 PO (11:19)
[2020-03-09] MEDS: methylPREDNISolone 40 MG/ML (Solu-MEDROL) VIAL IV SCH ×3 (11:49→21:29)
[2020-03-09] MEDS: NYSTATIN ORAL SUSP 5 ML UDC PO SCH ×4 (11:49→21:29)
[2020-03-09] MEDS: HYDROcodone/APAP 7.5 MG/325 MG (LORTAB, LORCET PLUS) TABLET PO PRN ×2 (11:50→21:28)
[2020-03-09 12:00] VITALS: BP 111/52
--- NOTE | 2020-03-09 12:37 | History & Physical ---
HPI History of Present Illness: Pt came to ER due to onset of headache and body aches and fever last night. Those are both feeling better today. Her temperature was 99, but she states she usually runs around 97. She has underlying COPD with intermittent cough productive of sputum and chronic shortness of breath and hypoxia. She states that her oxygen can drop to 70s when she is just sitting still, and that predated these symptoms. She feels like her breathing is at her baseline, but she usually wears 2 lpm of oxygen and is currently on 4. She has chronic nasal congestion from allergies. She hasn't had a good sense of taste or smell for a "long time". Her only known COVID19 contact was her son-in-law, but he had it months ago and she states they wear masks around each other even now. Her chest is burning from coughing and deep breathing. Source: patient Exam Limitations: no limitations Date seen by provider: Mar 09, 2020 Time Seen by Provider: 12:00 Attending Physician Candace Lan MD PCP Ravin Vang MD Consult Date of Admission Mar 09, 2020 at 05:21 Home Medications Home Medications Reviewed patient Home Medication Reconciliation performed by pharmacy medication reconciliations phone technician and/or nursing. Patients Allergies have been reviewed. Allergies Coded Allergies: levofloxacin (Verified Allergy, Severe, SEVERE SWELLING OF KNEES, 05/28/17) zolpidem (Verified Allergy, Unknown, 05/28/17) Uncoded Allergies: HONEY BEES (Allergy, Severe, ANAPHYLAXIS, 08/07/14) CKL-Meoogc-Dqabgp Hx Patient Social History Alcohol Use: Denies Use Recreational Drug Use: No Smoking Status: Former Smoker Type Used: Cigarettes Recent Foreign Travel: No Contact w/other who traveled: No Recent Hopitalizations: No Recent Infectious Disease Expo: Yes (Covid PUI) Immunizations Up To Date Tetanus Booster (TDap): More than 5yrs Date of Pneumonia Vaccine: Apr 09, 2017 Date of Influenza Vaccine: Mar 25, 2017 Past Medical History Past medical history 1. COPD 2. Pulmonary embolus in the distant past related to OCP 3. Hypertension 4. Chronic anxiety and depression 5. Multiple admissions with pneumonia H-Flu 2-15, Strep Pneumonia 12-13 6. Hyperlipidemia Past surgical history 1. Hysterectomy 2. Open right shoulder surgery 3. Appendectomy -Kido 4. Knee arthroscopy Family Medical History Significant Family History: Cancer (mother colon ca and sister rectal ca), Diabetes (daughter) Review of Systems ([facility]) Constitutional: fever EENTM: nose congestion; No throat pain Respiratory: cough, phlegm, short of breath Cardiovascular: chest pain Gastrointestinal: No abdominal pain; constipation, diarrhea, nausea, vomiting Genitourinary: No dysuria Musculoskeletal: back pain Skin: other (reports she has psoriasis) Psychiatric/Neurological: No Symptoms Reported Reviewed Test Results Reviewed Test Results Lab Laboratory Tests Test 03/09/20 03:30 03/09/20 03:40 03/09/20 04:10 Range/Units White Blood Count 11.3 H 4.3-11.0 10^3/uL Red Blood Count 4.98 4.35-5.85 10^6/uL Hemoglobin 13.4 11.5-16.0 G/DL Hematocrit 45 35-52 % Mean Corpuscular Volume 90 80-99 FL Mean Corpuscular Hemoglobin 27 25-34 PG Mean Corpuscular Hemoglobin Concent 30 L 32-36 G/DL Red Cell Distribution Width 13.5 10.0-14.5 % Platelet Count 230 130-400 10^3/uL Mean Platelet Volume 10.6 H 7.4-10.4 FL Neutrophils (%) (Auto) 78 H 42-75 % Lymphocytes (%) (Auto) 17 12-44 % Monocytes (%) (Auto) 3 0-12 % Eosinophils (%) (Auto) 2 0-10 % Basophils (%) (Auto) 0 0-10 % Neutrophils # (Auto) 8.8 H 1.8-7.8 X 10^3 Lymphocytes # (Auto) 1.9 1.0-4.0 X 10^3 Monocytes # (Auto) 0.4 0.0-1.0 X 10^3 Eosinophils # (Auto) 0.2 0.0-0.3 10^3/uL Basophils # (Auto) 0.0 0.0-0.1 10^3/uL Prothrombin Time 12.6 12.2-14.7 SEC INR Comment 0.9 0.8-1.4 Activated Partial Thromboplast Time 31 24-35 SEC D-Dimer 0.09 0.00-0.49 UG/ML Sodium Level 141 135-145 MMOL/L Potassium Level 4.0 3.6-5.0 MMOL/L Chloride Level 101 98-107 MMOL/L Carbon Dioxide Level 28 21-32 MMOL/L Anion Gap 12 5-14 MMOL/L Blood Urea Nitrogen 10 7-18 MG/DL Creatinine 0.92 0.60-1.30 MG/DL Estimat Glomerular Filtration Rate > 60 BUN/Creatinine Ratio 11 Glucose Level 123 H 70-105 MG/DL Lactic Acid Level 1.27 0.50-2.00 MMOL/L Calcium Level 8.8 8.5-10.1 MG/DL Corrected Calcium 8.6 8.5-10.1 MG/DL Total Bilirubin 0.2 0.1-1.0 MG/DL Aspartate Amino Transf (AST/SGOT) 18 5-34 U/L Alanine Aminotransferase (ALT/SGPT) 13 0-55 U/L Alkaline Phosphatase 115 40-136 U/L Lactate Dehydrogenase 249 H 125-220 U/L C-Reactive Protein High Sensitivity 1.52 H 0.00-0.50 MG/DL Total Protein 7.2 6.4-8.2 GM/DL Albumin 4.3 3.2-4.5 GM/DL Procalcitonin 0.02 <0.10 NG/ML Coronavirus 2019 ([place]) Negative Negative Urine Color YELLOW Urine Clarity CLEAR Urine pH 6.0 5-9 Urine Specific [place] 1.010 L 1.016-1.022 Urine Protein NEGATIVE NEGATIVE Urine Glucose (UA) NEGATIVE NEGATIVE Urine Ketones NEGATIVE NEGATIVE Urine Nitrite NEGATIVE NEGATIVE Urine Bilirubin NEGATIVE NEGATIVE Urine Urobilinogen 0.2 < = 1.0 MG/DL Urine Leukocyte Esterase NEGATIVE NEGATIVE Urine RBC (Auto) 2+ H NEGATIVE Urine RBC 5-10 H /HPF Urine WBC 0-2 /HPF Urine Squamous Epithelial Cells 2-5 /HPF Urine Crystals NONE /LPF Urine Bacteria NEGATIVE /HPF Urine Casts NONE /LPF Urine Mucus NEGATIVE /LPF Urine Culture Indicated CULTURE PENDING Radiology CXR 03/09/20: IMPRESSION: Stable chest x-ray exam with no interval radiographic evidence of acute cardiopulmonary process. Stable mild bibasilar atelectasis versus scarring. Physical Exam-([facility]) Physical Exam Vital Signs VS - Last 72 Hours, by Label 03/09/20 03/09/20 03/09/20 03/09/20 03:18 03:30 06:52 07:15 Temp 37.7 35.7 Pulse 120 112 109 Resp 26 12 20 B/P (MAP) 173/86 (115) 138/52 130/59 (82) Pulse Ox 96 95 93 O2 Delivery Nasal Cannula Nasal Cannula Nasal Cannula Nasal Cannula O2 Flow Rate 4.00 3.00 03/09/20 03/09/20 03/09/20 03/09/20 08:00 08:00 09:12 09:13 Temp 35.7 Pulse 109 109 Resp 20 B/P (MAP) 130/59 Pulse Ox 93 93 O2 Delivery Nasal Cannula Nasal Cannula Nasal Cannula O2 Flow Rate 3.00 3.00 4.00 03/09/20 10:57 Pulse Ox 93 O2 Delivery Nasal Cannula O2 Flow Rate 4.00 Capillary Refill : Less Than 3 Seconds General Appearance: WD/WN, no apparent distress Respiratory: lungs clear, normal breath sounds, no respiratory distress Cardiovascular: regular rate, rhythm, no murmur Gastrointestinal: normal bowel sounds, non tender, soft Extremities: no pedal edema Neurologic/Psychiatric: alert, normal mood/affect Skin: normal color, warm/dry Assessment/Plan Assessment/Plan Admission Status: Observation (1) Person under investigation for COVID-19 Status: Acute Assessment & Plan: Rapid test negative, PCR pending. (2) COPD exacerbation Onset Date: 08/07/2014 Status: Acute Assessment & Plan: Albuterol scheduled and prn, IV solmedrol started, increased supplemental oxygen as needed. (3) Chronic obstructive lung disease Status: Chronic Assessment & Plan: Resume home LABA/ICS (4) Chronic respiratory failure Status: Chronic Assessment & Plan: On 2 lpm supplemental oxygen at baseline Qualifiers: Qualified Codes: J96.11 - Chronic respiratory failure with hypoxia (5) Hypertension Status: Chronic Assessment & Plan: Resume home medications Qualifiers: Qualified Codes: I10 - Essential (primary) hypertension (6) Hyperlipidemia Status: Chronic Assessment & Plan: Resume home statin (7) Hypoxia Status: Chronic Assessment & Plan: Acute worsening, on 4 lpm supplemental oxygen currently, suspect secondary to COPD exacerbation, COVID pending. Flu neg. (8) Chronic back pain Status: Chronic Assessment & Plan: Continue home hydrocodone. (9) Anxiety Status: Chronic Assessment & Plan: Resume home alprazolam. (10) DVT prophylaxis Status: Acute Assessment & Plan: Enoxaparin Clinical Quality Measures DVT/VTE Risk/Contraindication: Risk Factor Score Per Nursin RFS Level Per Nursing on Admit: 4+=Very High CANDACE LAN MD Mar 09, 2020 12:37
[2020-03-09 16:06] VITALS: BP 139/64
[2020-03-09] MEDS ORDERED: NYST1000 PO (16:06)
--- NOTE | 2020-03-09 16:09 | NUR ---
SPOKE WITH THE PT- I CALLED HER ROOM PHONE AND ALSO CALLED HER DAUGHTER VIDHI AND WENT THRU THE EXT MED HISTORY TO COMPLETE THE MED REC PT WASNT SURE OF ALL HER MEDICATIONS AND ASKED THAT I CALL HER DAUGHTER TO GET THE REST OF THE INFORMATION. VIDHI WAS ABLE TO NAME THE PTS MEDICATIONS WELL WHEN/HOW SHE TAKES EACH. HER INFORMATION MATCHED THE EXT MED HISTORY OTC MEDS: [id number]
--- NOTE | 2020-03-09 17:20 | NUR ---
Telephone orders from Dr. Lan to remove from isolation received at this time.
[2020-03-09] MEDS: ADVAIR HFA 115/21 MCG INHALER 8 GM IH SCH (19:06)
[2020-03-09 19:07] VITALS: BP 117/70
[2020-03-09] MEDS ORDERED: FAMOTIDINE 20 MG (PEPCID) TABLET PO SCH (21:00)
[2020-03-09] MEDS: ALPRAZolam 1 MG (XANAX) TAB PO SCH (21:29)
[2020-03-09 23:15] VITALS: BP 128/60
[2020-03-10 03:01] VITALS: BP 112/64
[2020-03-10] MEDS: methylPREDNISolone 40 MG/ML (Solu-MEDROL) VIAL IV SCH (04:12)
[2020-03-10] MEDS: NYSTATIN ORAL SUSP 5 ML UDC PO SCH ×4 (04:13→12:12)
[2020-03-10 05:36] LABS: BASOPHILS % (AUTO) 0 % (0-10); EOSINOPHILS % (AUTO) 0 % (0-10); HEMATOCRIT 37 % (35-52); HEMOGLOBIN 10.8 G/DL (11.5-16.0); LYMPHOCYTES # (AUTO) 0.7 X 10^3 (1.0-4.0); LYMPHOCYTES % (AUTO) 4 % (12-44); MEAN CORPUSCULAR HEMOGLOBIN 27 PG (25-34); MEAN CORPUSCULAR HGB CONC 29 G/DL (32-36); MEAN CORPUSCULAR VOLUME 92 FL (80-99); MEAN PLATELET VOLUME 10.7 FL (7.4-10.4); MONOCYTES # (AUTO) 0.2 X 10^3 (0.0-1.0); MONOCYTES % (AUTO) 2 % (0-12); NEUTROPHILS # (AUTO) 15.6 X 10^3 (1.8-7.8); NEUTROPHILS % (AUTO) 95 % (42-75); PLATELET COUNT 185 10^3/uL (130-400); WHITE BLOOD COUNT 16.5 10^3/uL (4.3-11.0)
[2020-03-10] MEDS: HYDROcodone/APAP 7.5 MG/325 MG (LORTAB, LORCET PLUS) TABLET PO PRN (05:56)
[2020-03-10] MEDS: LACTATED RINGERS 1,000 ML IV SCH (05:57)
[2020-03-10 06:08] LABS: CHLORIDE 104 MMOL/L (98-107); POTASSIUM 4.2 MMOL/L (3.6-5.0); SODIUM 142 MMOL/L (135-145)
[2020-03-10 06:10] LABS: CALCIUM 8.6 MG/DL (8.5-10.1); GLUCOSE 182 MG/DL (70-105)
[2020-03-10 06:11] LABS: CARBON DIOXIDE 29 MMOL/L (21-32)
[2020-03-10 06:14] LABS: CREATININE SERUM 0.84 MG/DL (0.60-1.30); GFR ESTIMATED > 60
[2020-03-10 06:15] LABS: BUN/CREATININE RATIO 12
[2020-03-10 06:32] LABS: LYMPHOCYTES % (MANUAL) 6 %; MONOCYTES % (MANUAL) 1 %; NEUTROPHILS % (MANUAL) 93 %
[2020-03-10 06:33] LABS: RBC MORPH NORMAL
[2020-03-10] MEDS: ADVAIR HFA 115/21 MCG INHALER 8 GM IH SCH (07:12)
[2020-03-10 08:00] VITALS: BP 142/83
[2020-03-10] MEDS ORDERED: predniSONE 20 MG TAB PO SCH (08:45)
[2020-03-10] MEDS ORDERED: SERTRALINE 100 MG (ZOLOFT) TAB PO SCH (09:00)
[2020-03-10] MEDS ORDERED: amLODIPine 5 MG (NORVASC) TAB PO SCH (09:00)
[2020-03-10] MEDS ORDERED: ASPIRIN 325 MG (5 GR) TABLET PO SCH (09:00)
[2020-03-10] MEDS: ALPRAZolam 1 MG (XANAX) TAB PO SCH (09:05)
[2020-03-10] MEDS: ENOXAPARIN 40 MG/0.4 ML (LOVENOX) SYR SC SCH (09:10)
[2020-03-10] MEDS ORDERED: FUROSEMIDE 40 MG (LASIX) TAB PO NR (09:30)
--- NOTE | 2020-03-10 09:39 | NUR ---
Pt is Anglican. She hopes to be discharged. Radiation Monitor offered blessing.
--- NOTE | 2020-03-10 10:36 | Progress Note ---
Subjective Subjective/Events-last exam Patient seen and examined this morning. She is eager to go home and denies any trouble breathing. She states she feels like her legs have swollen a little bit and wonders if she could have a water pill to help this. She is still requiring 4L of supplemental oxygen and O2 sats are in the low 90s-upper 80s. Review of Systems General: No Chills, No Fatigue, No Malaise HEENT: No Head Aches, No Visual Changes Pulmonary: No Dyspnea; Cough Cardiovascular: Edema; No: Chest Pain Gastrointestinal: No: Nausea, Vomiting, Abdominal Pain Neurological: No: Weakness Focused Exam Lactate Level 03/09/20 03:30: Lactic Acid Level 1.27 Objective Exam Last Set of Vital Signs Vital Signs Date Time Temp Pulse Resp B/P (MAP) Pulse Ox O2 Delivery O2 Flow Rate FiO2 03/10/20 08:00 36.0 98 18 142/83 (102) 93 Nasal Cannula 4.00 Capillary Refill : Less Than 3 Seconds I&O Intake and Output 03/10/20 00:00 Intake Total 2490 ml Balance 2490 ml Intake Oral 1490 ml IV Total 1000 ml # Voids 4 Daily Weight Change No No General: Alert, No Acute Distress HEENT: EOMI, Mucous Memb Moist/[place] Lungs: Other (Wheezes in left lung) Heart: Regular Rate, No Murmurs Abdomen: Soft, No Tenderness Extremities: Other (mild nonpitting edema to bilateral LE, no tenderness) Psych/Mental Status: Mental Status NL, Mood NL Results/Procedures Lab Laboratory Tests 03/10/20 05:25: White Blood Count 16.5H, Red Blood Count 4.03L, Hemoglobin 10.8L, Hematocrit 37, Mean Corpuscular Volume 92, Mean Corpuscular Hemoglobin 27, Mean Corpuscular Hemoglobin Concent 29L, Red Cell Distribution Width 13.6, Platelet Count 185, Mean Platelet Volume 10.7H, Neutrophils (%) (Auto) 95H, Lymphocytes (%) (Auto) 4L, Monocytes (%) (Auto) 2, Eosinophils (%) (Auto) 0, Basophils (%) (Auto) 0, Neutrophils # (Auto) 15.6H, Lymphocytes # (Auto) 0.7L, Monocytes # (Auto) 0.2, Eosinophils # (Auto) 0.0, Basophils # (Auto) 0.0, Neutrophils % (Manual) 93, Lymphocytes % (Manual) 6, Monocytes % (Manual) 1, Blood Morphology Comment NORMAL, Sodium Level 142, Potassium Level 4.2, Chloride Level 104, Carbon Dioxide Level 29, Anion Gap 9, Blood Urea Nitrogen 10, Creatinine 0.84, Estimat Glomerular Filtration Rate > 60, BUN/Creatinine Ratio 12, Glucose Level 182H, Calcium Level 8.6, B-Type Natriuretic Peptide 170.1H Microbiology 03/09/20 Urine Culture - Final, Complete NO GROWTH 03/09/20 Influenza Types A,B Antigen (ADRIAN) - Final, Complete Radiology CXR 03/09/20: IMPRESSION: Stable chest x-ray exam with no interval radiographic evidence of acute cardiopulmonary process. Stable mild bibasilar atelectasis versus scarring. Assessment/Plan Assessment/Plan Assessment & Plan COPD exacerbation- COVID negative, continue albuterol and salumedrol Acute on chronic respiratory failure- increase supplemental oxygen as needed, monitor closely. BNP was only slightly elevated, so heart failure not likely, but may consider echo if hypoxia does not improve LE edema- PO lasix ordered and IV fluids stopped. Hypertension- continue home medications Hyperlipidemia-continue statin DVT prophylaxis- enoxaparin Clinical Quality Measures DVT/VTE Risk/Contraindication: Risk Factor Score Per Nursin RFS Level Per Nursing on Admit: 4+=Very High MANJINDER VAZ,MED STUDENT Mar 10, 2020 10:36
[2020-03-10 12:00] VITALS: BP 132/75
[2020-03-10] MEDS ORDERED: PRD20T PO (13:01)
--- NOTE | 2020-03-10 13:09 | Discharge Summary ---
Discharge Summary Hospital Course Problems Reviewed?: Yes Problems/Diagnosis: (1) Person under investigation for COVID-19 Status: Resolved Resolution Date/Time: 03/09/20 @ 13:03 Assessment & Plan: Rapid test negative, PCR negative. (2) COPD exacerbation Onset Date: 08/07/2014 Status: Acute Assessment & Plan: Albuterol scheduled and prn, IV solmedrol started, increased supplemental oxygen as needed. 03/10 patient strongly requesting to d/c, was able to maintain oxygen above 94% on 2.5 lpm, on baseline of 2 lpm and states she can increase O2 if needed and strongly requests d/c. Discharged on 5 day course of prednisone. (3) Chronic obstructive lung disease Status: Chronic Assessment & Plan: Resume home LABA/ICS (4) Chronic respiratory failure Status: Chronic Assessment & Plan: On 2 lpm supplemental oxygen at baseline Qualifiers: Qualified Codes: J96.11 - Chronic respiratory failure with hypoxia (5) Hypertension Status: Chronic Assessment & Plan: Resumed amlodipine that was on clinic chart home med list, however per pharmacy med rec, she was not on it, and given that BP was r easonable without it, did not continue on d/c. Qualifiers: Qualified Codes: I10 - Essential (primary) hypertension (6) Hyperlipidemia Status: Chronic Assessment & Plan: Resume home statin (7) Hypoxia Status: Chronic Assessment & Plan: Acute worsening, on 4 lpm supplemental oxygen currently, suspect secondary to COPD exacerbation, COVID negative. Flu neg. (8) Chronic back pain Status: Chronic Assessment & Plan: Continue home hydrocodone. (9) Anxiety Status: Chronic Assessment & Plan: Resume home alprazolam. Hospital Course Date of Admission: Mar 09, 2020 at 05:21 Admission Diagnosis : Family Physician/Provider: Ravin Chu MD Date of Discharge: 03/10/20 Discharge Diagnosis: See problem list Hospital Course: See problem list Labs and Pending Lab Test: Laboratory Tests 03/10/20 05:25: White Blood Count 16.5H, Red Blood Count 4.03L, Hemoglobin 10.8L, Hematocrit 37, Mean Corpuscular Volume 92, Mean Corpuscular Hemoglobin 27, Mean Corpuscular Hemoglobin Concent 29L, Red Cell Distribution Width 13.6, Platelet Count 185, Mean Platelet Volume 10.7H, Neutrophils (%) (Auto) 95H, Lymphocytes (%) (Auto) 4L, Monocytes (%) (Auto) 2, Eosinophils (%) (Auto) 0, Basophils (%) (Auto) 0, Neutrophils # (Auto) 15.6H, Lymphocytes # (Auto) 0.7L, Monocytes # (Auto) 0.2, Eosinophils # (Auto) 0.0, Basophils # (Auto) 0.0, Neutrophils % (Manual) 93, Lymphocytes % (Manual) 6, Monocytes % (Manual) 1, Blood Morphology Comment NORMAL, Sodium Level 142, Potassium Level 4.2, Chloride Level 104, Carbon Dioxide Level 29, Anion Gap 9, Blood Urea Nitrogen 10, Creatinine 0.84, Estimat Glomerular Filtration Rate > 60, BUN/Creatinine Ratio 12, Glucose Level 182H, Calcium Level 8.6, B-Type Natriuretic Peptide 170.1H Microbiology 03/09/20 Urine Culture - Final, Complete NO GROWTH 03/09/20 Influenza Types A,B Antigen (ADRIAN) - Final, Complete Home Meds Active Proair Hfa (Albuterol Sulfate) 1 Puff Puff 2 Puff IH Q4H 30 Days 1 PUFF = 90 MCG Reported Nystatin 100,000 Unit/1 Ml Oral.susp 5 Ml PO Q6H PRN Benadryl (Diphenhydramine HCl) 25 Mg Capsule 25-50 Mg PO Q6H PRN Narcan (Naloxone HCl) 4 Mg Mascot 1 Mascot NA PRN PRN Atorvastatin Calcium 20 Mg Tablet 20 Mg PO DAILY Sertraline HCl 100 Mg Tablet 100 Mg PO DAILY Hydrocodone-Acetamin 7.5-325 (Hydrocodone/Acetaminophen) 1 Each Tablet 1 Tab PO Q6H PRN Advair 250-50 Diskus (Fluticasone/Salmeterol) 1 Each Blst.w.dev 1 Puff IH BID Alprazolam 1 Mg Tablet 1 Mg PO BID Assessment/Pt DC Instructions Follow up with Dr. Chu on 03/12 at 9:40 am for a telephone visit. Discharge Diet: No Restrictions Discharge Physical Examination Allergies: Coded Allergies: levofloxacin (Verified Allergy, Severe, SEVERE SWELLING OF KNEES, 05/28/17) zolpidem (Verified Allergy, Unknown, 05/28/17) Uncoded Allergies: HONEY BEES (Allergy, Severe, ANAPHYLAXIS, 08/07/14) General Appearance: Anxious Respiratory: No Accessory Muscle Use, No Respiratory Distress, Wheezing (end expiratory) Cardiovascular: Regular Rate, Rhythm, No Murmur Extremity: No Pedal Edema Skin: Normal Color, Warm/Dry Neurologic/Psychiatric: Alert Copy Copies To 1: RAVIN CHU MD Clinical Quality Measures DVT/VTE Risk/Contraindication: Risk Factor Score Per Nursin RFS Level Per Nursing on Admit: 4+=Very High CANDACE ANN MD Mar 10, 2020 13:07
[2020-03-10 15:01] VITALS: BP 132/75
--- NOTE | 2020-03-10 15:01 | NUR ---
TANO PARKER demonstrates understanding of discharge instructions and accurately returns instructions upon questioning. Copy of Post-Discharge Instructions and Medication Discharge Instructions given to PT. TANO PARKER is able to manage continuing needs after discharge. Patients belongings returned to PT. Skin dry and intact; no breakdown noted. Patient discharged from 424-1 on at 1501. TANO PARKER left floor via WC, accompanied by STAFF.
== END 2020-03-10 15:01 | disposition home or self-care (01) ==
LOC: EDUNIT# 03:02 → ER 03:04 → 4TH 05:21
PROVIDERS: ADMIT Family Medicine; ATTEND Family Medicine
DX: J44.1 Chronic obstructive pulmonary disease with (acute) exacerbation (principal); J96.11 Chronic respiratory failure with hypoxia; I10 Essential (primary) hypertension; E78.5 Hyperlipidemia, unspecified; G89.29 Other chronic pain; M54.5 Low back pain; F41.9 Anxiety disorder, unspecified; K21.9 Gastro-esophageal reflux disease without esophagitis; M19.90 Unspecified osteoarthritis, unspecified site; Z86.73 Personal history of transient ischemic attack (TIA), and cerebral infarction without residual deficits; F32.9 Major depressive disorder, single episode, unspecified; I26.99 Other pulmonary embolism without acute cor pulmonale; Z79.899 Other long term (current) drug therapy; Z79.51 Long term (current) use of inhaled steroids; Z91.030 Bee allergy status; Z88.8 Allergy status to other drugs, medicaments and biological substances; Z20.828 Contact with and (suspected) exposure to other viral communicable diseases; Z90.710 Acquired absence of both cervix and uterus; Z80.9 Family history of malignant neoplasm, unspecified; Z83.3 Family history of diabetes mellitus
CPT/HCPCS: 71045; 80048; 80053; 81000; 83605; 83615; 83880; 84145; 85007; 85025; 85027; 85379; 85610; 85730; 86141; 87040; 87088; 87804; 94640; 94760; 99284; U0002; 36415; 87635

== ENCOUNTER 2020-04-28 19:04 | Emergency (ER) | payer MEDICARE, MEDICAID ==
[~2020-04-28] VITALS: Ht 162.5 cm; Wt 72.5 kg
[~2020-04-28 19:04] MED LIST changes: +AMLO-250 PO; +ATOR20TA66 PO; +FAMO40TA6 PO; +HYDR-3817 PO; +NALO4SPR; +POTA10CA43 PO; +SERT100T8 PO
--- NOTE | 2020-04-28 19:19 | ED Upper Extremity ---
General Chief Complaint: Upper Extremity Stated Complaint: FALL;SHOULDER INJURY Source: patient Exam Limitations: no limitations History of Present Illness Date Seen by Provider: Apr 28, 2020 Time Seen by Provider: 19:18 Initial Comments To ER via wheelchair from home with reports of a fall and a subsequent pain and popping noise in the right shoulder. She is certain she did not hit her head. She is on Oxygen around the clock at home, also uses hydrocodone tid she states. History of previous right rotator cuff surgery Onset: just prior to arrival Severity: moderate Pain/Injury Location: right shoulder Method of Injury: fell Modifying Factors: Worse With Movement Allergies and Home Medications Allergies Coded Allergies: levofloxacin (Verified Allergy, Severe, SEVERE SWELLING OF KNEES, 05/28/17) zolpidem (Verified Allergy, Unknown, 05/28/17) Uncoded Allergies: HONEY BEES (Allergy, Severe, ANAPHYLAXIS, 08/07/14) Home Medications Albuterol Sulfate 1 Puff Puff, 2 PUFF IH Q4H 1 PUFF = 90 MCG Prescribed by: SUKHDEV GUTIERREZ on 07/14/19 1404 Alprazolam 1 Mg Tablet, 1 MG PO BID, (Reported) Atorvastatin Calcium 20 Mg Tablet, 20 MG PO DAILY, (Reported) Diphenhydramine HCl 25 Mg Capsule, 25-50 MG PO Q6H PRN for ALLERGY SYMP., (Reported) Fluticasone/Salmeterol 1 Each Blst.w.dev, 1 PUFF IH BID, (Reported) Hydrocodone/Acetaminophen 1 Each Tablet, 1 TAB PO Q6H PRN for PAIN-SEVERE (8- 10), (Reported) Naloxone HCl 4 Mg [place], 1 SPRAY NA PRN PRN for overdose, (Reported) Nystatin 100,000 Unit/1 Ml Oral.susp, 5 ML PO Q6H PRN for THRUSH, (Reported) Prednisone 20 Mg Tab, 40 MG PO DAILY@0700 Prescribed by: CANDACE ANN on 03/10/20 1301 Sertraline HCl 100 Mg Tablet, 100 MG PO DAILY, (Reported) Patient Home Medication List Home Medication List Reviewed: Yes Review of Systems Constitutional: see HPI EENTM: see HPI Respiratory: no symptoms reported Cardiovascular: no symptoms reported Genitourinary: no symptoms reported Musculoskeletal: see HPI Skin: no symptoms reported Psychiatric/Neurological: No Symptoms Reported Past [id number]-[id number] Hx Patient Social History Type Used: Cigarettes Former Smoker, Quit: Jun 27, 2008 Recent Foreign Travel: No Contact w/Someone Who Travel: No Recent Hopitalizations: No Immunizations Up To Date Tetanus Booster (TDap): More than 5yrs PED Vaccines UTD: No Date of Pneumonia Vaccine: Apr 09, 2017 Date of Influenza Vaccine: Mar 25, 2017 Seasonal Allergies Seasonal Allergies: Yes Past Medical History Surgeries: Yes (L SHOULDER, KNEE SURGERIES -SCOPE, CATARACT, T/A, APPY ) Appendectomy, Section, Eye Surgery, Hysterectomy, Orthopedic Respiratory: Yes (2.5 L/NC, End stage COPD) Pneumonia, Pulmonary Embolism, COPD Currently Using CPAP: No Currently Using BIPAP: No Cardiac: Yes Hypertension Neurological: Yes (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, TIA ) TIA Reproductive Disorders: No Female Reproductive Disorders: Denies Sexually Transmitted Disease: No HIV/AIDS: No Genitourinary: Yes UTI-Chronic Gastrointestinal: Yes Gastroesophageal Reflux Musculoskeletal: Yes Arthritis Endocrine: No HEENT: Yes Cataract Loss of Vision: Right Hearing Impairment: Denies Cancer: Yes ( hysterectomy, ) Cervical Did You Recieve Any Treatments: Yes What Type of Treatment Did You: Surgical Intervention Psychosocial: Yes Anxiety, Depression Integumentary: No Blood Disorders: No Adverse Reaction/Blood Tranf: No Family Medical History Arthritis 19 FATHER Asthma DAUGHTER Cancer (brother of throat cancer) 19 MOTHER G8 SISTER Cardiovascular disease 19 FATHER Colon cancer 19 MOTHER Coronary thrombosis DAUGHTER Diabetes mellitus DAUGHTER Drug abuse DAUGHTER Headache disorder DAUGHTER Hypercholesterolemia DAUGHTER Hypertension DAUGHTER Myocardial infarction 19 MOTHER Psychosocial problem DAUGHTER Respiratory disorder DAUGHTER Stroke (father had stroke) Tuberculosis No Family History of: AIDS Abdominal aortic aneurysm [place]'s disease Alcoholism Alzheimer's disease Aphasia Cancer of mouth Cataracts Completed stroke Congenital disease Congenital heart disease Congenital heart disease (mother of copd and CHF) Cystic fibrosis Deafness or hearing loss Dementia Dysphasia Fibrocystic disease of breast Gastroenteritis Glaucoma Infertility Kidney disease Neoplasm Not obtainable due to adoption Osteoporosis Parkinson's disease Prostate cancer Seizure disorder Severe allergy Thyroid disease Visual disorder Cancer, Diabetes Physical Exam Vital Signs Capillary Refill : Height, Weight, BMI Height: 5'4.00" Weight: 170lbs. 13.9oz. 77.233674bg; 25.53 BMI Method:Stated General Appearance: WD/WN, no apparent distress HEENT: PERRL/EOMI, normal ENT inspection Respiratory: no respiratory distress, no accessory muscle use Gastrointestinal: normal bowel sounds, non tender Shoulder: limited ROM, soft tissue tenderness (There is a concavity of the renal fossa with a palpable humeral head that is anterior medial to this. Consistent with anterior shoulder dislocation.) Neurologic/Psychiatric: alert, normal mood/affect Skin: normal color, warm/dry Arrives wearing her supplemental oxygen at 2 L/min. Progress/Results/Core Measures Results/Orders My Orders Orders - JACQUELINE SALGADO APRN Shoulder, Right, 3 Views (04/28/20 19:16) Ed Iv/Invasive Line Start (04/28/20 19:16) Ondansetron Injection (Zofran Injectio (04/28/20 19:30) Fentanyl Injection (Sublimaze Injection (04/28/20 19:30) Etomidate Injection (Amidate Injection) (04/28/20 19:30) Ns Iv 500 Ml (Sodium Chloride 0.9%) (04/28/20 19:30) Shoulder, Right, 2 Views (04/28/20 19:16) Medications Given in ED Current Medications Medications Dose Ordered Sig/Yannick Route Start Time Stop Time Status Last Admin Dose Admin Etomidate 10 mg ONCE ONCE IV 04/28/20 19:30 04/28/20 19:31 DC 04/28/20 19:43 15 MG Fentanyl Citrate 50 mcg ONCE ONCE IVP 04/28/20 19:30 04/28/20 19:31 DC 04/28/20 19:42 50 MCG Ondansetron HCl 4 mg ONCE ONCE IVP 04/28/20 19:30 04/28/20 19:31 DC 04/28/20 19:42 4 MG Diagnostic Imaging Diagonstic Imaging: Xray Comments NAME: TANO PARKER [facility] REC#: [id number] PT STATUS: REG ER : 1950 PHYSICIAN: JACQUELINE SALGADO APRN ADMIT DATE: 04/28/20/ER Signed Date of Exam:04/28/20 SHOULDER, RIGHT, 3 VIEWS INDICATION: Fall. COMPARISON: None available. TECHNIQUE: Three radiographs of the right shoulder dated April 28, 2020. FINDINGS: Mild degenerative changes within the acromioclavicular joint. Anterior dislocation of the glenohumeral joint is present. No discrete fracture. No large volume right-sided pleural effusion or pneumothorax within the [id number]. IMPRESSION: 1. Anterior dislocation of the right glenohumeral joint. 2. Recommend postreduction radiographs to further evaluate. Dictated by: Dictated on workstation # [id number] Dict: 04/28/201940 Trans: 04/28/201954 [facility] [id number] Interpreted by: LILIAN HOLT MD Electronically signed by: LILIAN HOLT MD 04/28/201954 NAME: TANO PARKER [facility] REC#: [id number] PT STATUS: REG ER : 1950 PHYSICIAN: JACQUELINE SALGADO APRN ADMIT DATE: 04/28/20/ER Draft Date of Exam:04/28/20 SHOULDER, RIGHT, 2 VIEWS INDICATION: Fall, postreduction. COMPARISON: Imaging from same date. TECHNIQUE: Two radiographs of the right shoulder dated April 28, 2020. FINDINGS: Mild degenerative changes of the acromioclavicular joint. Interval reduction of previously noted glenohumeral joint dislocation. Possible narrowing of the subacromial space. No acute fracture. Remainder of the exam appears similar. IMPRESSION: 1. Interval reduction of previously noted right glenohumeral joint dislocation without definite fracture. 2. Narrowing of the subacromial space, which may relate to underlying chronic rotator cuff tear. Dictated on workstation # [id number] Dict: 04/28/201957 Trans: 04/28/202001 [facility] [id number] Interpreted by: LILIAN HOLT MD Electronically signed by: Departure Communication (Admissions) 2002-consious sedation done using 15mg etomidate and 50mcg fentanyl. Tolerated well with End tidal co2 monitored throughout. Easily reduced the dislocation. Given her COPD and use of sedation, will observe her for a few hours. Impression Primary Impression: Dislocation of right shoulder joint Qualified Codes: S43.004A - Unspecified dislocation of right shoulder joint, initial encounter Disposition: HOME, SELF-CARE Condition: Stable Departure-Patient Inst. Decision time for Depature: 20:04 Referrals: ANDREA CHU MD (PCP/Family) Primary Care Physician Patient Instructions: Moderate Sedation in Adults (DC), Shoulder Dislocation (DC) Add. Discharge Instructions: 1. follow up with your orthopedic surgeon next week. Keep the sling on at all times except when bathing until next week. Take your pain medication as directed. All discharge instructions reviewed with patient and/or family. Voiced understanding. JACQUELINE SALGADO AUTOMATIC DIE CUTTING MACHINE OPERATOR Apr 28, 2020 19:19
[2020-04-28] MEDS ORDERED: ETOMIDATE IV SOLN 20 MG/10 ML VIAL IV ONE (19:30)
[2020-04-28] MEDS ORDERED: NS IV 500 ML 500 ML IV SCH (19:30)
[2020-04-28] MEDS ORDERED: fentaNYL INJECTION 100 MCG/2 ML AMP IVP ONE (19:30)
[2020-04-28] MEDS ORDERED: ONDANSETRON 4 MG/2 ML (SDV) Z0FRAN IVP ONE (19:30)
--- NOTE | 2020-04-28 19:44 | Diagnostic Imaging Report ---
INDICATION: Fall. COMPARISON: None available. TECHNIQUE: Three radiographs of the right shoulder dated April 28, 2020. FINDINGS: Mild degenerative changes within the acromioclavicular joint. Anterior dislocation of the glenohumeral joint is present. No discrete fracture. No large volume right-sided pleural effusion or pneumothorax within the [id number]. IMPRESSION: 1. Anterior dislocation of the right glenohumeral joint. 2. Recommend postreduction radiographs to further evaluate. Dictated by: Dictated on workstation # [id number]
--- NOTE | 2020-04-28 20:02 | Diagnostic Imaging Report ---
INDICATION: Fall, postreduction. COMPARISON: Imaging from same date. TECHNIQUE: Two radiographs of the right shoulder dated April 28, 2020. FINDINGS: Mild degenerative changes of the acromioclavicular joint. Interval reduction of previously noted glenohumeral joint dislocation. Possible narrowing of the subacromial space. No acute fracture. Remainder of the exam appears similar. IMPRESSION: 1. Interval reduction of previously noted right glenohumeral joint dislocation without definite fracture. 2. Narrowing of the subacromial space, which may relate to underlying chronic rotator cuff tear. Dictated by: Dictated on workstation # [id number]
[2020-04-28 21:27] VITALS: BP 166/98
== END 2020-04-28 21:22 | disposition home or self-care (01) ==
LOC: EDUNIT# 19:04 → ER 19:06
DX: S43.101A Unspecified dislocation of right acromioclavicular joint, initial encounter (principal); J44.9 Chronic obstructive pulmonary disease, unspecified; F32.9 Major depressive disorder, single episode, unspecified; F41.9 Anxiety disorder, unspecified; Z20.828 Contact with and (suspected) exposure to other viral communicable diseases; Z82.61 Family history of arthritis; Z83.3 Family history of diabetes mellitus; Z82.49 Family history of ischemic heart disease and other diseases of the circulatory system; Z80.1 Family history of malignant neoplasm of trachea, bronchus and lung; Z80.0 Family history of malignant neoplasm of digestive organs; Z85.41 Personal history of malignant neoplasm of cervix uteri; Z86.73 Personal history of transient ischemic attack (TIA), and cerebral infarction without residual deficits; Z87.891 Personal history of nicotine dependence; Z91.030 Bee allergy status; Z88.1 Allergy status to other antibiotic agents; Z88.8 Allergy status to other drugs, medicaments and biological substances; Z79.52 Long term (current) use of systemic steroids; W19.XXXA Unspecified fall, initial encounter
CPT/HCPCS: 23655; 73030; 93041

== ENCOUNTER 2020-10-20 07:34 | Emergency (ER) | payer MEDICARE, MEDICAID ==
[~2020-10-20] VITALS: Ht 162.5 cm; Wt 70.4 kg
[~2020-10-20 07:34] MED LIST changes: +ACYC-108 PO; -ACYC200C PO; +SERT-413 PO; +SERT-414 PO; -SERT100T8 PO
[2020-10-20 08:20] LABS: BASOPHILS # (AUTO) 0.1 10^3/uL (0.0-0.1); BASOPHILS % (AUTO) 0 % (0-10); EOSINOPHILS # (AUTO) 0.1 10^3/uL (0.0-0.3); EOSINOPHILS % (AUTO) 0 % (0-10); HEMATOCRIT 44 % (35-52); HEMOGLOBIN 13.7 g/dL (11.5-16.0); LYMPHOCYTES # (AUTO) 1.4 10^3/uL (1.0-4.0); LYMPHOCYTES % (AUTO) 6 % (12-44); MEAN CORPUSCULAR HEMOGLOBIN 28 pg (25-34); MEAN CORPUSCULAR HGB CONC 31 g/dL (32-36); MEAN CORPUSCULAR VOLUME 91 fL (80-99); MEAN PLATELET VOLUME 11.3 fL (9.0-12.2); MONOCYTES # (AUTO) 1.3 10^3/uL (0.0-1.0); MONOCYTES % (AUTO) 6 % (0-12); NEUTROPHILS # (AUTO) 19.6 10^3/uL (1.8-7.8); NEUTROPHILS % (AUTO) 87 % (42-75); PLATELET COUNT 250 10^3/uL (130-400); WHITE BLOOD COUNT 22.6 10^3/uL (4.3-11.0)
[2020-10-20 08:25] LABS: INR 0.9 (0.8-1.4); PROTHROMBIN TIME PATIENT 12.9 SEC (12.2-14.7)
[2020-10-20] MEDS ORDERED: ACETAMINOPHEN 500 MG TAB (TYLENOL) PO ONE (08:30)
[2020-10-20] MEDS ORDERED: NS IV 1000 ML 1,000 ML IV SCH (08:30)
[2020-10-20 08:33] LABS: ALBUMIN 4.4 GM/DL (3.2-4.5); CALCIUM 9.2 MG/DL (8.5-10.1); CREATININE SERUM 0.97 MG/DL (0.60-1.30); POTASSIUM 3.5 MMOL/L (3.6-5.0); TOTAL PROTEIN 7.5 GM/DL (6.4-8.2)
--- NOTE | 2020-10-20 08:34 | ED Respiratory ---
General Chief Complaint: Respiratory Problems Stated Complaint: SOB,COUGHING UP MUCUS Nursing Triage Note: AMB TO ROOM WITH [address] REPORTS SHE HAS PNEUMONIA HAS IT FREQUENT AND IT FEELING LIKE IT IS ON THE R AND MOVING TO L. COUGHING UP GREEN PHELGM. (SHERMAN KINCAID MED STUDENT) History of Present Illness Date Seen by Provider: Oct 20, 2020 Time Seen by Provider: 08:31 Initial Comments Patient is a 70-year-old female who presents to the emergency department with the chief complaint of fever, headache, and productive cough. Patient does report history of COPD, CHF, and asthma, and frequent history of pneumonia. She states her cough and headache started 2 days ago, and states that it "feels like pneumonia" again. She states that she feels like the "infection has traveled from the right lung to the left" last night. She has a productive cough, and was able to produce green-yellow sputum at time of exam. She reports feeling feverish last night. She used Benadryl, ibuprofen, and an albuterol breathing treatment yesterday, but this did not seem to help her symptoms. Patient states her usual dbciknzty-pi-qhylrv has not worsened and is normally on 2L of oxygen at home. Denies chest pain. Denies nausea, vomiting, abdominal pain. Denies leg swelling. She is a former smoker. Denies sick contacts. She states she has not previously had COVID and is not currently vaccinated against COVID. All review of systems reviewed and negative except stated above. Timing/Duration: other (2 days) Severity: moderate Prior Episodes/Possible Cause: frequent episodes Modifying Factors: Improves With Albuterol Nebulizer (no improvement), Improves With Oxygen Associated Symptoms: No chest pain/soreness; cough; No dizziness; fever/chills, headache, shortness of breath; No sore throat (SHERMAN KINCAID MED STUDENT) Allergies and Home Medications Allergies Coded Allergies: levofloxacin (Verified Allergy, Severe, SEVERE SWELLING OF KNEES, 05/28/17) zolpidem (Verified Allergy, Unknown, 05/28/17) Uncoded Allergies: H[place]Y [place]ES (Allergy, Severe, ANAPHYLAXIS, 08/07/14) Home Medications Albuterol Sulfate 1 Puff Puff, 2 PUFF IH Q4H 1 PUFF = 90 MCG Prescribed by: SUKHDEV GUTIERREZ on 07/14/19 1404 Alprazolam 1 Mg Tablet, 1 MG PO BID, (Reported) Atorvastatin Calcium 20 Mg Tablet, 20 MG PO DAILY, (Reported) Diphenhydramine HCl 25 Mg Capsule, 25-50 MG PO Q6H PRN for ALLERGY SYMP., (Reported) Fluticasone/Salmeterol 1 Each Blst.w.dev, 1 PUFF IH BID, (Reported) Hydrocodone/Acetaminophen 1 Each Tablet, 1 TAB PO Q6H PRN for PAIN-SEVERE (8- 10), (Reported) Naloxone HCl 4 Mg Sumner, 1 SPRAY NA PRN PRN for overdose, (Reported) Nystatin 100,000 Unit/1 Ml Oral.susp, 5 ML PO Q6H PRN for THRUSH, (Reported) Prednisone 20 Mg Tab, 40 MG PO DAILY@0700 Prescribed by: CANDACE ANN on 03/10/20 1301 Sertraline HCl 100 Mg Tablet, 100 MG PO DAILY, (Reported) Patient Home Medication List Home Medication List Reviewed: Yes (ELLEN REED MD) Review of Systems Review of Systems Constitutional: see HPI, fever EENTM: no symptoms reported Respiratory: see HPI, cough (productive), dyspnea on exertion (at baseline); No hemoptysis; phlegm, other (2L home oxygen) Cardiovascular: no symptoms reported Gastrointestinal: no symptoms reported Genitourinary: no symptoms reported : No Musculoskeletal: no symptoms reported Skin: no symptoms reported Psychiatric/Neurological: See HPI, Headache Hematologic/Lymphatic: No Symptoms Reported Immunological/Allergic: no symptoms reported (SHERMAN KINCAID STUDENT) All Other Systems Reviewed Negative Unless Noted: Yes (SHERMAN KINCAID STUDENT) Past Xnkoooa-Nqwjkr-Xswslj Hx Patient Social History Alcohol Use: Denies Use Type Used: Cigarettes Former Smoker, Quit: Jun 27, 2008 Recent Infectious Disease Expo: No Recent Hopitalizations: No (SHERMAN KINCAID STUDENT) Immunizations Up To Date Tetanus Booster (TDap): More than 5yrs PED Vaccines UTD: No Date of Pneumonia Vaccine: Apr 09, 2017 Date of Influenza Vaccine: Mar 25, 2017 (SHERMAN KINCAID STUDENT) Seasonal Allergies Seasonal Allergies: Yes (SHERMAN KINCAID STUDENT) Past Medical History Surgeries: Yes (L SHOULDER, KNEE SURGERIES -SCOPE, CATARACT, T/A, APPY ) Appendectomy, Section, Eye Surgery, Hysterectomy, Orthopedic Respiratory: Yes (2.5 L/NC, End stage COPD) Pneumonia, Pulmonary Embolism, COPD Currently Using CPAP: No Currently Using BIPAP: No Cardiac: Yes Hypertension Neurological: Yes (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, TIA ) TIA Reproductive Disorders: No Female Reproductive Disorders: Denies 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 Sexually Transmitted Disease: No HIV/AIDS: No Genitourinary: Yes UTI-Chronic Gastrointestinal: Yes Gastroesophageal Reflux Musculoskeletal: Yes Arthritis Endocrine: No HEENT: Yes Cataract Loss of Vision: Right Hearing Impairment: Denies Cancer: Yes ( hysterectomy, ) Cervical Did You Recieve Any Treatments: Yes What Type of Treatment Did You: Surgical Intervention Psychosocial: Yes Anxiety, Depression Integumentary: No Blood Disorders: No Adverse Reaction/Blood Tranf: No (SHERMAN KINCAID STUDENT) Family Medical History Arthritis 19 FATHER Asthma DAUGHTER Cancer (brother of throat cancer) 19 MOTHER G8 SISTER Cardiovascular disease 19 FATHER Colon cancer 19 MOTHER Coronary thrombosis DAUGHTER Diabetes mellitus DAUGHTER Drug abuse DAUGHTER Headache disorder DAUGHTER Hypercholesterolemia DAUGHTER Hypertension DAUGHTER Myocardial infarction 19 MOTHER Psychosocial problem DAUGHTER Respiratory disorder DAUGHTER Stroke (father had stroke) Tuberculosis No Family History of: AIDS Abdominal aortic aneurysm Sequatchie's disease Alcoholism Alzheimer's disease Aphasia Cancer of mouth Cataracts Completed stroke Congenital disease Congenital heart disease Congenital heart disease (mother of copd and CHF) Cystic fibrosis Deafness or hearing loss Dementia Dysphasia Fibrocystic disease of breast Gastroenteritis Glaucoma Infertility Kidney disease Neoplasm Not obtainable due to adoption Osteoporosis Parkinson's disease Prostate cancer Seizure disorder Severe allergy Thyroid disease Visual disorder Cancer, Diabetes (SHERMAN KINCAID STUDENT) Physical Exam Vital Signs - First Documented 10/20/20 07:36 Temp 37.8 Pulse 131 Resp 22 B/P (MAP) 164/83 (110) Pulse Ox 90 O2 Delivery Nasal Cannula O2 Flow Rate 3.00 (ELLEN REED MD) Capillary Refill : Less Than 3 Seconds (SHERMAN KINCAID MED STUDENT) Height: 5'4.00" Weight: 170lbs. 13.9oz. [id number]; 26.00 BMI Method:Stated General Appearance: WD/WN, no apparent distress HEENT: normal ENT inspection Respiratory: chest non-tender, no respiratory distress, no accessory muscle use, decreased breath sounds, crackles (some crackles in RUL); No rales, No rhonchi, No stridor; wheezing (wheezing in right upper lobe, good breath sounds on left) Cardiovascular: normal peripheral pulses, no gallop, no JVD, no murmur, tachycardia (120s-130s); No irregularly irregular Gastrointestinal: normal bowel sounds, non tender, soft, no organomegaly, no pulsatile mass Extremities: non-tender, normal inspection, no pedal edema, normal capillary refill Neurologic/Psychiatric: alert, normal mood/affect, oriented x 3 Skin: normal color, warm/dry (SHERMAN KINCAID MED STUDENT) Focused Exam Lactate Level 10/20/20 07:48: Lactic Acid Level 1.42 (ELLEN REED MD) Lactic Acid Level Laboratory Tests Test 10/20/20 07:48 Lactic Acid Level 1.42 MMOL/L (0.50-2.00) (ELLEN REED MD) Progress/Results/Core Measures Suspected Sepsis Recent Fever Within 48 Hours: No Infection Criteria Present: None New/Unexplained Altered Menta: No Sepsis Screen: No Definite Risk SIRS Temperature: Pulse: 131 Respiratory Rate: 22 Laboratory Tests 10/20/20 07:48: White Blood Count 22.6H Blood Pressure 164 /83 Mean: 110 10/20/20 07:48: Lactic Acid Level 1.42 Laboratory Tests 10/20/20 07:48: Creatinine 0.97, Platelet Count 250, Total Bilirubin 1.0 10/20/20 08:10: (SHERMAN KINCAID MED STUDENT) Results/Orders Lab Results Laboratory Tests Test 10/20/20 07:48 10/20/20 08:10 Range/Units White Blood Count 22.6 H 4.3-11.0 10^3/uL Red Blood Count 4.87 3.80-5.11 10^6/uL Hemoglobin 13.7 11.5-16.0 g/dL Hematocrit 44 35-52 % Mean Corpuscular Volume 91 80-99 fL Mean Corpuscular Hemoglobin 28 25-34 pg Mean Corpuscular Hemoglobin Concent 31 L 32-36 g/dL Red Cell Distribution Width 14.1 10.0-14.5 % Platelet Count 250 130-400 10^3/uL Mean Platelet Volume 11.3 9.0-12.2 fL Immature Granulocyte % (Auto) 1 % Neutrophils (%) (Auto) 87 H 42-75 % Lymphocytes (%) (Auto) 6 L 12-44 % Monocytes (%) (Auto) 6 0-12 % Eosinophils (%) (Auto) 0 0-10 % Basophils (%) (Auto) 0 0-10 % Neutrophils # (Auto) 19.6 H 1.8-7.8 10^3/uL Lymphocytes # (Auto) 1.4 1.0-4.0 10^3/uL Monocytes # (Auto) 1.3 H 0.0-1.0 10^3/uL Eosinophils # (Auto) 0.1 0.0-0.3 10^3/uL Basophils # (Auto) 0.1 0.0-0.1 10^3/uL Immature Granulocyte # (Auto) 0.1 0.0-0.1 10^3/uL Neutrophils % (Manual) 77 % Lymphocytes % (Manual) 11 % Monocytes % (Manual) 5 % Eosinophils % (Manual) 0 % Basophils % (Manual) 0 % Band Neutrophils 7 % Blood Morphology Comment NORMAL Prothrombin Time 12.9 12.2-14.7 SEC INR Comment 0.9 0.8-1.4 Activated Partial Thromboplast Time 31 24-35 SEC Sodium Level 139 135-145 MMOL/L Potassium Level 3.5 L 3.6-5.0 MMOL/L Chloride Level 99 98-107 MMOL/L Carbon Dioxide Level 27 21-32 MMOL/L Anion Gap 13 5-14 MMOL/L Blood Urea Nitrogen 9 7-18 MG/DL Creatinine 0.97 0.60-1.30 MG/DL Estimat Glomerular Filtration Rate 57 BUN/Creatinine Ratio 9 Glucose Level 138 H 70-105 MG/DL Lactic Acid Level 1.42 0.50-2.00 MMOL/L Calcium Level 9.2 8.5-10.1 MG/DL Corrected Calcium 8.9 8.5-10.1 MG/DL Total Bilirubin 1.0 0.1-1.0 MG/DL Aspartate Amino Transf (AST/SGOT) 26 5-34 U/L Alanine Aminotransferase (ALT/SGPT) 29 0-55 U/L Alkaline Phosphatase 148 H 40-136 U/L Total Protein 7.5 6.4-8.2 GM/DL Albumin 4.4 3.2-4.5 GM/DL Coronavirus 2019 ([place]) Not Detected Not Detecte (ELLEN REED MD) Micro Results Microbiology 10/20/20 Influenza Types A,B Antigen (ADRIAN) - Final, Complete (ELLEN REED MD) My Orders Orders - ELLEN REED MD Cbc With Automated Diff (10/20/20 08:10) Comprehensive Metabolic Panel (10/20/20 08:10) Blood Culture (10/20/20 08:10) Sputum Culture (10/20/20 08:10) Protime With Inr (10/20/20 08:10) Partial Thromboplastin Time (10/20/20 08:10) Chest 1 View, Ap/Pa Only (10/20/20 08:10) Ed Iv/Invasive Line Start (10/20/20 08:10) Ed Iv/Invasive Line Start (10/20/20 08:10) Vital Signs Adult Sepsis Patie Q15M (10/20/20 08:10) O2 (10/20/20 08:10) Remove Rings In Anticipation O (10/20/20 08:10) Lactic Acid Analyzer (10/20/20 08:10) Covid 19 Inhouse Test (10/20/20 08:10) Influenza A And B Antigens (10/20/20 08:10) Acetaminophen Tablet (Tylenol Tablet) (10/20/20 08:30) Ns Iv 1000 Ml (Sodium Chloride 0.9%) (10/20/20 08:30) Manual Differential (10/20/20 07:48) Albuterol/Ipra Inhalation Soln (Duoneb I (10/20/20 09:15) Svn Small Volume Nebulizer (10/20/20 09:13) Azithromycin Injection (Zithromax Inject (10/20/20 09:30) (ELLEN REED MD) Medications Given in ED (ELLEN REED MD) Vital Signs/I&O 10/20/20 10/20/20 10/20/20 07:36 07:36 10:45 Temp 37.8 Pulse 131 112 Resp 22 18 B/P (MAP) 164/83 (110) 132/56 Pulse Ox 90 92 96 O2 Delivery Nasal Cannula Nasal Cannula Nasal Cannula O2 Flow Rate 3.00 3.00 (ELLEN REED MD) Vital Signs/I&O Capillary Refill : Less Than 3 Seconds (SHERMAN KINCAID MED STUDENT) Blood Pressure Mean: 110 Progress Note : Time: 09:33 Progress Note RE-evaluated patient, her heart rate is down to 105-110. She states her headac he is not much better. oxygen sats are 90-94% on 3L pnc. She still has productive cough. Will give a duo neb treatment. patient with crackles throughout lung leal and some scant expiratory wheeze. Will treat with 500mg Azithromycin here in the ER. will send the patient home on scheduled neb treatments. Will have her do tylenol for fever as needed at home. I really expected her CXR to look like pneumonia, but it is clear this morning. I suspect she has "walking pneumonia" and will treat as such. home on a z-pack. Close follow up with Dr Chu at [facility]. Return precautions given and close re- evaluation if needed here in the ED. Sepsis markers are negative. Lactic is less than 2; but with tachycardia and fever and suspicion for infectious source she is borderline septic. BP is good. Oxygenation is good. HOme with 4 days of zithromax at 250mg /day. (ELLEN REED MD) Departure Impression Primary Impression: Walking pneumonia Disposition: HOME, SELF-CARE Condition: Stable Departure-Patient Inst. Decision time for Depature: 09:42 (ELLEN REED MD) Referrals: ANDREA CHU MD (PCP/Family) Primary Care Physician Patient Instructions: Atypical Pneumonia (Mycoplasma and Viral) (DC) Add. Discharge Instructions: Take the azithromycin 250 mg a day for the next 4 days starting tomorrow. Use your nebulizer every 4-6 hours throughout the day as well as tomorrow. Take [id number] Tylenol and/or ibuprofen every 4-6 hours as needed for fever, headache and body aches. Come back to the emergency room within the next 24 to 48 hours if you have worsening symptoms of shortness of breath, fever, cough or any other emergent concerning symptoms. Please follow-up with your primary care physician as needed. I have seen and examined this patient, I have performed the history and physical exam as well as the medical decision making. I have reviewed the medical student's documentation and agree with her assessment and plan. (ELLEN REED MD) SHERMAN KINCAID MED STUDENT Oct 20, 2020 08:34 ELLEN REED MD Oct 20, 2020 09:41
[2020-10-20 08:55] LABS: BAND NEUTROPHILS 7 %; BASOPHILS % (MANUAL) 0 %; EOSINOPHILS % (MANUAL) 0 %; LYMPHOCYTES % (MANUAL) 11 %; MONOCYTES % (MANUAL) 5 %; NEUTROPHILS % (MANUAL) 77 %; RBC MORPH NORMAL
--- NOTE | 2020-10-20 08:59 | Diagnostic Imaging Report ---
INDICATION: Sepsis. TIME OF EXAM: 8:45 AM. COMPARISON: Prior chest from 03/09/2020. FINDINGS: The heart size is stable. The lungs show some hyperinflation, suggestive of COPD. No infiltrates are seen. There is no effusion or pneumothorax. IMPRESSION: COPD. No acute feature is detected. Dictated by: Dictated on workstation # [id number]
[2020-10-20] MEDS ORDERED: RT-ALBUTEROL/IPRATROPIUM 3 ML (DUONEB) VIAL INH ONE (09:15)
[2020-10-20] MEDS ORDERED: AZITHROMYCIN INJECTION 500 MG in NS (IVPB) 250 ML IV ONE (09:30)
[2020-10-20 10:45] VITALS: BP 132/56
== END 2020-10-20 10:43 | disposition home or self-care (01) ==
LOC: EDUNIT# 07:34 → ER 07:36
DX: J18.9 Pneumonia, unspecified organism (principal); F41.9 Anxiety disorder, unspecified; F32.9 Major depressive disorder, single episode, unspecified; I10 Essential (primary) hypertension; J44.9 Chronic obstructive pulmonary disease, unspecified; Z20.822 Contact with and (suspected) exposure to COVID-19; Z88.1 Allergy status to other antibiotic agents; Z88.8 Allergy status to other drugs, medicaments and biological substances; Z86.73 Personal history of transient ischemic attack (TIA), and cerebral infarction without residual deficits; Z87.891 Personal history of nicotine dependence; Z79.52 Long term (current) use of systemic steroids; Z79.899 Other long term (current) drug therapy
CPT/HCPCS: 71045; 80053; 83605; 85007; 85027; 85610; 85730; 87040; 87070; 87205; 87804; 99284; U0002; 36415; 87635